=== PATIENT | male | born 1950 | race Caucasian/White ===

== ENCOUNTER 2019-11-29 08:22 | Outpatient (CLI) | payer MEDICARE, SELFPAY ==
--- NOTE | ~2019-11-29 | US_ITS ---
EXAMINATION: US aorta [facility] DATE: 11/29/2019 11:09 CDT INDICATION: High cholesterol. Hypertension. TECHNIQUE: Grayscale, color Doppler, and pulsed Doppler images of the aorta and common iliac arteries were obtained. COMPARISON: None. FINDINGS: There is atheromatous change of the aorta. The proximal aorta measures 1.7 cm greatest sagittal dimen carlton. The mid aorta measures 1.9 cm greatest sagittal dimension. The distal aorta measures 2.1 cm gre atest sagittal dimension. The right common internal iliac artery measures 1.5 cm. The left common davie ac artery measures 1.4 cm. IMPRESSION: 1. Atherosclerosis of the aorta without evidence for aneurysm. Reviewed, dictated and finalized at location A.
== END 2019-11-29 08:23 | disposition home or self-care (01) ==
LOC: ANHIMG 08:35
PROVIDERS: PCP Family Medicine; Visit Provider Family Medicine
DX: Z13.6 Encounter for screening for cardiovascular disorders (principal); I70.0 Atherosclerosis of aorta
CPT/HCPCS: 76706

== ENCOUNTER 2020-01-10 00:39 | Outpatient (CLI) | payer MEDICARE, SELFPAY ==
[2020-01-10 18:42] LABS: SARS-CoV-2 RNA PCR Negative
== END 2020-01-10 00:40 | disposition home or self-care (01) ==
LOC: ANHCOVIDDT 00:39
PROVIDERS: PCP Family Medicine; Visit Provider Internal Medicine Gastroenterology
DX: Z01.812 Encounter for preprocedural laboratory examination (principal); Z20.828 Contact with and (suspected) exposure to other viral communicable diseases
CPT/HCPCS: 87635; C9803; U0003

== ENCOUNTER 2020-01-12 01:27 | Day surgery (SDC) | payer MEDICARE, SELFPAY ==
[2020-01-05 10:08] VITALS: BMI 29.4
[2020-01-12] MEDS: LACTATED RINGERS 1,000 ML 150 ML IV CONT (06:56)
[2020-01-12 06:57] VITALS: BP 161/91; PULSE 116; RESP 20; TEMP 37.4; O2SAT 95
--- NOTE | 2020-01-12 07:27 | P.PNAN_ITS ---
Anes - Initial Pre Proc Eval Procedure: Operation Date: 01/12/20 08:00 Proposed Procedures p Screening Colonoscopy - Chaim Slaughter MD Date/Time: 01/12/20 07:27 Surgeon: Chaim Slaughter MD Pre Op Diagnosis: neoplasm screening Patient Data Age: 69 Gender: M Height: 5 ft 10 in Weight: 99.4 kg Last Vital Signs Temp 99.4 F 01/12/20 06:57 Pulse 116 H 01/12/20 06:57 Resp 20 01/12/20 06:57 BP 161/91 H 01/12/20 06:57 Pulse Ox 95 01/12/20 06:57 Allergies Allergy/AdvReac Type Severity Reaction Status Date / Time No Known Allergies Allergy Unknown Verified 01/12/20 06:47 Home Medications Medication Instructions Recorded Confirmed Type quinapril 20 1 tablet PO DAILY #90 tablet 11/20/19 01/12/20 Rx mg-hydrochlorothiazide 12.5 mg tablet multivitamin 1 tablet PO DAILY 12/25/19 01/12/20 History simvastatin 10 mg tablet 10 mg PO QPM #90 tablet 12/25/19 01/12/20 Rx Patient hx anesthesia problems: none Family hx anesthesia problems: none PMFSH Past Medical History Medical History (Updated 12/25/19 @ 16:44 by Isidra Gonsalez MD) Dyslipidemia Elevated lipids Essential (primary) hypertension Hx of pleural empyema 02/2015 Pneumonia (~02/09/15) Pre-diabetes Surgical History Surgical History History of thoracotomy right - 02/2015 [place] teeth extracted Social History Social History Smoking packs per day: 1 Smoking cigarettes per day: 20.0 Years smoked: 35 Smoking pack-years: 35.00 Smoking status: Current every day smoker Tobacco type: cigarettes Additional smoking assessment comments: consumes 1 1/2 - 2 packs daily Alcohol intake: current Substance use: never Substance use type: does not use Gender identity (if verbalized by the patient): Male Anes - Eval Final PreProcedure Day of Procedure 01/12/20 07:27 Patient weight: obese Heart: regular rate and rhythm Lungs: clear to auscultation Airway: Mallampati scale class II Neurological: alert and oriented Last oral intake: >/= 8 hours ASA classification: III Emergent: no Anesthetic plan: proceed Anesthesia type and monitoring: general GIVS and standard monitoring Informed Consent: The patient's anesthetic plan and its attendant risks and benefits were discussed with the patient/family/POA. Questions were solicited and answers provided to the satisfaction of the patient/family/POA.
--- NOTE | 2020-01-12 07:52 | PM.HPGS ---
History of Present Illness History of Present Illness Consent: Risks, benefits, and alternatives have been discussed and questions answered. Patient agrees to proceed with procedure. Chief complaint: neoplasm screening Narrative: Jose Miranda is a 69 year old male with positive cologuard, last colonoscopy 14 years ago. Review of Systems Constitutional: Constitutional: Denies headache(s) and Denies weakness Eyes: Eyes: Denies blurry vision ENT: Reports Normal hearing present, Denies headache(s) and Denies neck pain Cardiovascular: Cardiovascular: Denies chest pain and Denies dyspnea Respiratory: Respiratory: Denies dyspnea Gastrointestinal: Gastrointestinal: Reports no additional gastrointestinal complaints Genitourinary: Genitourinary: Denies dysuria Musculoskeletal: Musculoskeletal: Denies neck pain Integumentary/Breasts: Skin/Breast: Denies dry skin Neurologic: Reports Normal hearing present, Denies headache(s) and Denies weakness Psychiatric: Psychiatric: Denies anxiety Endocrine: Endocrine: Denies change in body appearance Hematologic/Lymphatic: Hematologic/Lymphatic: Denies easy bleeding Allergic/Immunologic: Allergic/Immunologic: Denies urticaria PMFSH Past Medical History Medical History (Updated 01/12/20 @ 07:53 by Chaim Slaughter MD) Dyslipidemia Elevated lipids Essential (primary) hypertension Hx of pleural empyema 02/2015 Pneumonia (~02/09/15) Positive colorectal cancer screening using Cologuard test Pre-diabetes Surgical History Surgical History History of thoracotomy right - 02/2015 [place] teeth extracted Social History Social History Smoking packs per day: 1 Smoking cigarettes per day: 20.0 Years smoked: 35 Smoking pack-years: 35.00 Smoking status: Current every day smoker Tobacco type: cigarettes Additional smoking assessment comments: consumes 1 1/2 - 2 packs daily Alcohol intake: current Substance use: never Substance use type: does not use Gender identity (if verbalized by the patient): Male Meds Home Medications and Allergies Home Medications Medication Instructions Recorded Confirmed Type quinapril 20 1 tablet PO DAILY #90 tablet 11/20/19 01/12/20 Rx mg-hydrochlorothiazide 12.5 mg tablet multivitamin 1 tablet PO DAILY 12/25/19 01/12/20 History simvastatin 10 mg tablet 10 mg PO QPM #90 tablet 12/25/19 01/12/20 Rx Allergies Allergy/AdvReac Type Severity Reaction Status Date / Time No Known Allergies Allergy Unknown Verified 01/12/20 06:47 Vital Signs Vital Signs - 24 hr 01/12/20 06:57 Temperature 99.4 F Pulse Rate 116 H Respiratory Rate 20 Blood Pressure 161/91 H Pulse Oximetry 95 Exam Const: General: comfortable and no acute distress HENMT: General nose exam: Normal nares present Eyes: General: appearance normal, both eyes and all related structures Neck: Neck: no JVD Resp: Auscultation: clear to auscultation bilaterally Cardio: Rate: regular rate Rhythm: regular rhythm GI: Inspection: non-distended GI Palp: Yes Soft to palpation Skin: General skin exam: normal color Neuro: General: gait normal Speech: normal speech Extrem: General: normal to inspection Psych: Mental Status: mental status grossly normal Assessment and Plan Assessment and plan (1) Positive colorectal cancer screening using Cologuard test: Code(s): R19.5 - Other fecal abnormalities Status: Acute Assessment and Plan: will proceed with colonoscopy (2) Essential (primary) hypertension: Code(s): I10 - Essential (primary) hypertension Status: Chronic
[2020-01-12 08:14] VITALS: BP 118/73; PULSE 98; RESP 24; O2SAT 97
[2020-01-12 08:24] VITALS: BP 117/71; PULSE 79; RESP 25; O2SAT 98
[2020-01-12 08:34] VITALS: BP 132/71; PULSE 81; RESP 23; O2SAT 98
== END 2020-01-12 08:54 | disposition home or self-care (01) ==
PROVIDERS: PCP Family Medicine; Visit Provider Internal Medicine Gastroenterology
PROC: 0DJD8ZZ Inspection of Lower Intestinal Tract, Via Natural or Artificial Opening Endoscopic (ICD-10-PCS; CPT 45378; principal; 2020-01-12 08:00)
DX: D12.2 Benign neoplasm of ascending colon (principal); D12.0 Benign neoplasm of cecum; D12.3 Benign neoplasm of transverse colon; K57.30 Diverticulosis of large intestine without perforation or abscess without bleeding; K64.8 Other hemorrhoids; I10 Essential (primary) hypertension; F17.210 Nicotine dependence, cigarettes, uncomplicated; Z79.899 Other long term (current) drug therapy
CPT/HCPCS: 45380; 88305; J2704; J7120

== ENCOUNTER 2022-08-20 13:48 | Outpatient (CLI) | payer OTHER, SELFPAY ==
[2022-08-20 19:03] LABS: Vitamin D 25 Hydroxy 45.9 ng/mL
[2022-08-20 19:30] LABS: Basophils Absolute Auto 0.1 K/mm3 (0.0-0.1); Basophils Percent Auto 1.1 % (0.2-1.2); Eosinophils Absolute Auto 0.3 K/mm3 (0-0.3); Eosinophils Percent Auto 2.5 % (0-4.4); Immature Granulocyte Absolute 0.06 K/mm3 (0.00-0.031); Immature Granulocyte Percent A 0.5 % (0-0.5); Lymphocytes Absolute Auto 1.96 K/mm3 (0.9-3.2); Lymphocytes Percent Auto 17.9 % (18.3-44.2); Mean Corpuscular HGB Conc 33.3 g/dl (32-36); Mean Corpuscular Hemoglobin 34.6 pg (26-34); Mean Corpuscular Volume 103.8 fl (80-100); Mean Platelet Volume 9.6 fl (7.4-10.4); Monocytes Percent Auto 9.1 % (2.6-8.5); Neutrophils Absolute Auto 7.6 K/mm3 (1.3-6.7); Neutrophils Percent Auto 68.9 % (45.5-73.1); Platelet Count Result 288 k/mm3 (150-375); Red Cell Distribution Width 12.8 % (11.5-14.5)
[2022-08-20 19:34] LABS: Alanine Aminotransferase 29 U/L (6-50); Albumin Level 4.6 g/dL (3.5-5.1); Alkaline Phosphatase 110 U/L (38-126); Anion Gap 12 mmol/L (8-16); Aspartate Amino Transferase 31 U/L (17-59); Bilirubin,Total 1.1 mg/dL (0.2-1.3); Blood Urea Nitrogen 12 mg/dL (9-20); Calcium 9.6 mg/dL (8.4-10.2); Carbon Dioxide 26 mmol/L (22-30); Chloride 97 mmol/L (98-107); Cholesterol 237 mg/dL (0-200); Estimated Glomerular Filt Rate > 60; Glucose 139 mg/dL (65-110); HDL Direct 46 mg/dL; Potassium 4.3 mmol/L (3.4-5.0); Sodium 135 mmol/L (137-145); Triglycerides 200 mg/dL (<150)
[2022-08-20 19:46] LABS: LDL Cholesterol Direct 161 mg/dL
[2022-08-20 19:55] LABS: Hemoglobin A1C 6.1 % (<5.7)
[2022-08-20 20:04] LABS: Prostate Specific Antigen 2.3 ng/mL (< OR = 4.0)
== END 2022-08-20 13:49 | disposition home or self-care (01) ==
LOC: ANHGOSHLAB 13:49
PROVIDERS: PCP Family Medicine; Visit Provider Nurse Practitioner Family
DX: R73.03 Prediabetes (principal); Z12.5 Encounter for screening for malignant neoplasm of prostate; E55.9 Vitamin D deficiency, unspecified; I10 Essential (primary) hypertension; E78.5 Hyperlipidemia, unspecified; F41.9 Anxiety disorder, unspecified
CPT/HCPCS: 36415; 80053; 80061; 82306; 83036; 84153; 84443; 85025; G0103

== ENCOUNTER 2022-08-26 15:01 | Outpatient (CLI) | payer OTHER, SELFPAY ==
--- NOTE | ~2022-08-26 | CT_ITS ---
EXAMINATION: CT lung screening DATE: 08/26/2022 15:27 INDICATION: Personal history of nicotine dependence, current smoker with 84 pack year history TECHNIQUE: Computed tomography (CT) of the chest was performed without intravenous contrast. The dose -length product (DLP) was 193.32 mGy-cm. Automated exposure control and iterative reconstruction tech Daojia were employed. COMPARISON: 02/08/2015 FINDINGS: There is a 2 mm nodule in the superior segment of the left lower lobe. There is mild atelec tasis in the right lower lobe. No pleural effusion or pneumothorax. 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 There is an old healed fracture of right fifth rib. No pathologicall y enlarged thoracic lymph nodes are identified. The heart size is normal. Calcified coronary artery a therosclerosis is noted. Punctate calcifications in an otherwise normal spleen likely represent heale d granulomatous disease. There is mild thoracic spondylosis. IMPRESSION: 1. Lung-RADS category 2: Benign appearance or behavior. Continue annual screening with noncontrast lo w-dose chest CT in 12 months. Reviewed, dictated and finalized at location F. IMPRESSION: 1. Lung-RADS category 2: Benign appearance or behavior. Continue annual screeni ng with noncontrast low-dose chest CT in 12 months.
== END 2022-08-26 15:02 | disposition home or self-care (01) ==
PROVIDERS: PCP Family Medicine; Visit Provider Nurse Practitioner Family
DX: Z12.2 Encounter for screening for malignant neoplasm of respiratory organs (principal); F17.210 Nicotine dependence, cigarettes, uncomplicated
CPT/HCPCS: 71271

== ENCOUNTER 2023-02-25 10:27 | Outpatient (CLI) | payer OTHER, SELFPAY ==
[2023-02-25 18:40] LABS: Basophils Absolute Auto 0.2 K/mm3 (0.0-0.1); Basophils Percent Auto 1.7 % (0.2-1.2); Eosinophils Absolute Auto 0.4 K/mm3 (0-0.3); Eosinophils Percent Auto 4.2 % (0-4.4); Hemoglobin 18.3 g/dL (14.0-18.0); Immature Granulocyte Absolute 0.04 K/mm3 (0.00-0.031); Immature Granulocyte Percent A 0.4 % (0-0.5); Lymphocytes Absolute Auto 2.29 K/mm3 (0.9-3.2); Lymphocytes Percent Auto 24.6 % (18.3-44.2); Mean Corpuscular HGB Conc 35.2 g/dl (32-36); Mean Corpuscular Hemoglobin 35.5 pg (26-34); Mean Platelet Volume 9.1 fl (7.4-10.4); Monocytes Absolute Auto 1.1 K/mm3 (0.1-0.6); Monocytes Percent Auto 11.5 % (2.6-8.5); Neutrophils Absolute Auto 5.4 K/mm3 (1.3-6.7); Neutrophils Percent Auto 57.6 % (45.5-73.1); Platelet Count Result 312 k/mm3 (150-375); Red Blood Count 5.15 M/mm3 (4.6-6.20); White Blood Count 9.3 K/mm3 (4.5-10.0)
[2023-02-25 19:25] LABS: Alanine Aminotransferase 30 U/L (6-50); Albumin Level 4.4 g/dL (3.5-5.1); Alkaline Phosphatase 106 U/L (38-126); Anion Gap 4 mmol/L (8-16); Aspartate Amino Transferase 38 U/L (17-59); Blood Urea Nitrogen 10 mg/dL (9-20); Calcium 9.7 mg/dL (8.4-10.2); Carbon Dioxide 29 mmol/L (22-30); Chloride 98 mmol/L (98-107); Cholesterol 208 mg/dL (0-200); Estimated Glomerular Filt Rate > 60; Glucose 153 mg/dL (65-110); HDL Direct 46 mg/dL; Potassium 4.3 mmol/L (3.4-5.0); Sodium 131 mmol/L (137-145); Triglycerides 195 mg/dL (<150)
[2023-02-25 19:36] LABS: LDL Cholesterol Direct 130 mg/dL
[2023-02-25 19:52] LABS: Hemoglobin A1C 5.8 % (<5.7)
== END 2023-02-25 10:28 | disposition home or self-care (01) ==
LOC: ANHGOSHLAB 10:28
PROVIDERS: PCP Family Medicine; Visit Provider Nurse Practitioner Family
DX: Z13.1 Encounter for screening for diabetes mellitus (principal); Z13.29 Encounter for screening for other suspected endocrine disorder; I10 Essential (primary) hypertension; R73.03 Prediabetes
CPT/HCPCS: 36415; 80053; 80061; 83036; 84443; 85025

== ENCOUNTER 2023-03-15 16:11 | Outpatient (CLI) | payer OTHER, SELFPAY ==
--- NOTE | ~2023-03-15 | US_ITS ---
EXAMINATION: US scrotum doppler DATE: 03/15/2023 18:52 INDICATION: Left testicular swelling. TECHNIQUE: Grayscale and Doppler ultrasound images of the testes were obtained. COMPARISON: None. FINDINGS: The right testis measures 4.7 x 2.1 x 3.4 cm. The left testis measures 3.9 x 2.9 x 3.5 cm. There are cysts in both testes measuring up to 5 mm on the left. There is normal vascular flow to bot h testes. The right epididymis demonstrates a 1.2 cm cyst.. The left epididymis demonstrates a 1.7 cm cyst.. There is no hydrocele. There is a left inguinal hernia containing fat. IMPRESSION: 1. Left inguinal hernia containing fat. Reviewed, dictated and finalized at location E.
== END 2023-03-15 16:12 | disposition home or self-care (01) ==
PROVIDERS: PCP Family Medicine; Visit Provider Nurse Practitioner Family
DX: K40.90 Unilateral inguinal hernia, without obstruction or gangrene, not specified as recurrent (principal); N50.89 Other specified disorders of the male genital organs
CPT/HCPCS: 76870; 93976

== ENCOUNTER 2023-04-09 10:18 | Outpatient (CLI) | payer OTHER, SELFPAY ==
--- NOTE | 2023-04-09 10:31 | ECG_ITS ---
Measurements Intervals [place] Rate: 107 P: 21 CA: 155 QRS: -14 QRSD: 91 T: 31 QT: 340 QTc: 454 Interpretive Statements SINUS TACHYCARDIA DELAYED PRECORDIAL R/S TRANSITION BASELINE ARTIFACT- I, III, AVR, AVL, AVF ABNORMAL ECG NO PREVIOUS ECG AVAILABLE FOR COMPARISON Electronically Signed On 04-09-2023 10:52:34 [employer] REPRESENTATIVE by Stef Ventura D.O.
== END 2023-04-09 10:19 | disposition home or self-care (01) ==
LOC: ANHSURGERY 10:23
PROVIDERS: PCP Nurse Practitioner Family; Visit Provider Surgery
DX: Z01.818 Encounter for other preprocedural examination (principal); K40.90 Unilateral inguinal hernia, without obstruction or gangrene, not specified as recurrent; I10 Essential (primary) hypertension; R94.31 Abnormal electrocardiogram [ECG] [EKG]; R93.1 Abnormal findings on diagnostic imaging of heart and coronary circulation
CPT/HCPCS: 36415; 86850; 86900; 86901; 93005

== ENCOUNTER 2023-04-12 13:27 | Inpatient (IN) | payer OTHER, SELFPAY ==
--- NOTE | 2023-04-08 13:08 | PC.NURSE ---
Report to the Outpatient Waiting Room, entrance under the green pavilion located off [facility], at time _0930 on date __04/12/23 . Planned Procedure Time: _1130 . Time changes happen often and if your time is changed the preop area will call you the afternoon before. - You and your visitor will be asked to self-screen and do not enter if you have any COVID symptoms. - A mask is optional within the hospital at this time. Patients may have clear liquids (water, carbonated beverages, clear teas, apple juice) until 3 hours prior to surgery with a maximum of 20 ounces. - No food from midnight until time of surgery - Infants may have breast milk until 4 hours before surgery, formula 6 hours prior to surgery. - Children will be allowed to drink immediately following surgery. If applicable, please bring a bottle or sippy cup to assist with drinking. Juice, water, soda, and popsicles are readily available. For infants on formula, please bring formula the day of surgery. Pacifiers are allowed. Take the following medications with a SIP of water the morning of surgery: ____INHALER IF NEEDED DO NOT STOP ANY OF YOUR OTHER PRESCRIPTION MEDICATIONS PRIOR TO SURGERY ?EXCEPT THE FOLLOWING Medications to discontinue per physician ___ALL VITAMINS AND SUPPLEMENTS 3 DAYS PRE OP . LAST DOSE 04/08/23 Please no make-up, nail lithuanian, hairspray, perfume, deodorant, or body powder the day of surgery. No jewelry (including any body piercings) or valuables the day of surgery, leave them at home. Please take a shower or bath the night before, or the morning of, surgery with an antibacterial soap. Wear comfortable, loose fitting clothing. Children are encouraged to wear pajamas. - Jewelry must be removed prior to entering the operating room. Rings and piercings that are not removed may be cut off. - The hospital will not accept responsibility for valuables. - Please leave all valuables, including medications, at home the day of surgery. If you are going home after surgery, a licensed gas truck driver must drive you home. - NO public transportation without another adult if you receive anesthesia. - We recommend that an adult stay with you for 24 hours following discharge. - We also recommend that you do not drive, make important decision, drink alcoholic beverages, or take any drugs that were not prescribed by your health care provider for at least 24 hours after your discharge time. For Pediatric surgeries, we recommend two adults accompany the child home. Follow any additional instructions given to you from your surgeon. If you or anyone in your household have experienced Covid symptoms in the past week, please notify your surgeon or the nurse liaison at the phone number below for possible testing. Telephone instructions given to __PATIENT and asked if any additional questions and then verbalized understanding. Patient advised to call surgeon office or pre surgery nurse liaison [phone] if any additional questions.
[2023-04-08 13:15] VITALS: BMI 31.0
[2023-04-12] VITALS (9 sets, daily range): BP systolic 103–162; BP diastolic 51–84; PULSE 95–118; RESP 18–22; TEMP 36.3–37.4; O2SAT 91–99
[2023-04-12] MEDS: LACTATED RINGERS 1,000 ML 30 ML IV CONT ×2 (09:59→13:32)
[2023-04-12] MEDS: ACETAMINOPHEN 500 MG TABLET 1000 MG PO (09:59)
[2023-04-12] MEDS: KETOROLAC 15 MG/ML VIAL (*BKC) IV PUSH (10:00)
--- NOTE | 2023-04-12 10:52 | WPDHPUPDATE1 ---
History and Physical Update Update Date/Time: 04/12/23 10:52 History and Physical has been reviewed, including an updated exam of the patient. There are NO changes in the patient's condition. Risks, benefits, and alternatives have been discussed and questions answered. Patient agrees to proceed with procedure.
--- NOTE | 2023-04-12 11:03 | WPDANESEPPF ---
Anes - Initial Pre Proc Eval Procedure: Operation Date: 04/12/23 11:30 Proposed Procedures p Robotic Assisted Left Inguinal Hernia Repair with Mesh - Yaz Crook MD Date/Time: 04/12/23 11:03 Surgeon: Yaz Crook MD Pre Op Diagnosis: Left Inguinal Hernia Patient Data Age: 72 Gender: M Height: 1.75 m Weight: 93.7 kg Last Vital Signs Temp 98.7 F 04/12/23 09:30 Pulse 102 H 04/12/23 09:30 Resp 18 04/12/23 09:30 BP 162/84 H 04/12/23 09:30 Pulse Ox 98 04/12/23 09:30 O2 Del Method Room Air 04/12/23 09:30 Allergies Allergy/AdvReac Type Severity Reaction Status Date / Time No Known Allergies Allergy Unknown Verified 04/12/23 09:39 Home Medications Medication Instructions Recorded Confirmed Type multivitamin 1 tablet PO DAILY 12/25/19 04/12/23 History albuterol sulfate 90 mcg/actuation 1 puff inhalation Q4H PRN 02/25/23 04/12/23 Rx aerosol inhaler shortness of breath or wheezing #6.7 grams lisinopril 10 mg tablet 10 mg PO DAILY #90 tabs 02/25/23 04/12/23 Rx omega 9-bdv-qvv-fish oil 1,000 mg 1 cap PO DAILY 03/18/23 04/12/23 History (120 mg-180 mg) capsule (Fish Oil) Patient hx anesthesia problems: none Family hx anesthesia problems: none Results Review: All pre-operative results and documents have been reviewed as part of the pre-operative evaluation. [facility], [facility] Past Medical History Medical History Anxiety attack Dyslipidemia Elevated lipids Essential (primary) hypertension Gout Hx of pleural empyema 02/2015 Incidental lung nodule, less than or equal to 3mm Pneumonia (~02/09/15) Positive colorectal cancer screening using Cologuard test Pre-diabetes Scrotum swelling Vitamin D deficiency Surgical History Surgical History History of thoracotomy right - 02/2015 [place] teeth extracted Family History Family History Other Heart disease Social History Social History Social History: Jose is , he retired from [employer]. He started smoking at age 20, quit for 8 yrs then restarted. Smoking packs per day: 2 Smoking cigarettes per day: 40.0 Years smoked: 30 Smoking pack-years: 60.00 Smoking status: Current every day smoker Tobacco type: cigarettes Additional smoking assessment comments: consumes 2 packs daily Alcohol intake: current Drinks per week: 28 Alcohol use details: consumes a 6 pack of beer daily Substance use: never Substance use type: does not use Lack of Transportation: No Lack of Food: Never True Current Housing: I Have Housing Concerned About Future Housing: No Difficulty Paying Gas/Electric Bills: No Difficulty Paying for Meds: No Currently Unemployed: No Education: High School Diploma/GED Difficulty w/ Childcare or Family Care: No Living arrangements: with family Gender identity (if verbalized by the patient): Male Spiritual care concerns: No Anes - Eval Final PreProcedure Day of Procedure 04/12/23 11:03 Patient weight: obese Heart: regular rate and rhythm Lungs: clear to auscultation Airway: Mallampati scale class III Neurological: alert and oriented Last oral intake: >/= 8 hours ASA classification: III Emergent: no Anesthetic plan: proceed Anesthesia type and monitoring: general ETT and standard monitoring Results Review: All pre-operative results and documents have been reviewed as part of the pre-operative evaluation. Informed Consent: The patient's anesthetic plan and its attendant risks and benefits were discussed with the patient/family/POA. Questions were solicited and answers provided to the satisfaction of the patient/family/POA.
[2023-04-12] MEDS: ceFAZolin 2 GM/D5W 50 ML 2 GM/50 ML BAG IVPB (11:14)
[2023-04-12] MEDS: BUPIVACAINE/EPINEPHRINE 0.5% 50 ML VIAL 30 ML INFILTRATE (12:03)
[2023-04-12] MEDS: PIPERACILLN/TAZ 3.375GM/NS50ML 3.375 GM/50 ML BAG IVPB ×2 (12:36→17:09)
--- NOTE | 2023-04-12 13:33 | W.PM.PROC2 ---
Procedure Note - Detailed Date of Procedure 04/12/23 Pre-op Diagnosis Incarcerated Left Inguinal Hernia Post-op Diagnosis Other ( strangulated left inguinal hernia with sigmoid colon) Procedure Performed robotic assisted exploratory laparoscopy, reduction of strangulated left inguinal hernia with sigmoid colon, conversion to open laparotomy, partial sigmoid colon resection with primary anastomosis, abdominal washout Surgeon Yaz Crook MD Anesthesia General Indications 72-year-old male presenting to the office with a incarcerated left inguinal hernia. Patient with noted symptoms of bowel obstruction. Findings Incarcerated, ischemic sigmoid colon within left inguinal hernia, small perforation noted during dissection Description of Procedure The patient was taken to the operating and placed in the supine position. After adequate induction of general anesthesia, the patient was prepped and draped in the normal sterile fashion. A time-out was then done to verify the patient's identity, as well as the procedure being performed. I began by making the 8 mm incision supraumbilical region, Veress needle was placed in the peritoneal cavity. CO2 gas was then insufflated through the Veress needle and after adequate pneumoperitoneum was achieved, the Veress needle was removed. A 8 mm trocar was placed under direct visualization into the peritoneal cavity. Under direct visualization, I placed a further 8 mm port in the left mid abdomen, as well as an additional 8 mm port in the right mid abdomen. The DA Sridhar robot was then docked to these port sites. I then scrubbed out and went to the robotic console. Upon examining the pelvis, there was noted to be a large, incarcerated left inguinal hernia. The hernia was noted to contain is significant portion of sigmoid colon. Using gentle manual pressure from the outside and the robotic instruments I began to carefully reduce this hernia. Despite careful and gentle dissection, I was unable to completely reduce this hernia. I then made a preperitoneal flap 6 cm superior to the defect. This flap was carried down to the area of the hernia. I dissected the medial compartment to the pubic tubercle. The lateral dissection was done to the transversalis. I then continued to carefully dissect this hernia from above. It was noted at this point that there was some ischemic changes in the colon and a small perforation was noted. At this point, decision was made to convert to open laparotomy. The robot was undocked and all ports removed. Made a lower midline incision incorporating the supraumbilical 8 mm port site. I was able to gain access to the left groin and using manual reduction I was finally able to reduce the hernia. There was noted to be a significant portion of sigmoid colon within the hernia. I was able to find the small area of perforation and ischemia. This was located in the mid to proximal sigmoid colon. Was able to free up the sigmoid colon by taking down the white line of Toldt laterally. I then was able to isolate this area of perforation and ischemia. I went ahead and resected this small area using a MONTRELL stapler. Then completed a [id number] functional end-to-end anastomosis the 55 MONTRELL stapler and the TL 60 stapler. The anastomosis was noted to be widely patent and tension-free. No other areas of pathology were noted. I then copiously irrigated the abdominal cavity and pelvis. Given the contaminated field, the decision was made not to proceed with mesh repair. I closed the preperitoneal flap with a Vicryl suture. The fascia of the midline incision was closed with a 0 looped PDS. Skin beth were used to close all incision sites. The patient tolerated the procedure well and was extubated postoperatively. He will be sent to the recovery room in stable condition.
[2023-04-12] MEDS: LACTATED RINGERS 1,000 ML 100 ML IV CONT (15:38)
--- NOTE | 2023-04-12 15:45 | ADMGEN ---
This patient, Bijan Miranda, was admitted to 3 [facility] Surg Room 301-01. Patient/family oriented to hospital policies and general routines including ID bracelet, bed and alarms, visiting hours, pain management, procedures, bathroom and other care routines, personal items, smoking policy, room service/diet, and visiting hours. Information on how to activate the Rapid Response Team has been discussed. Patient/Family are encouraged to report perceived risks to care and to ask questions if they do not understand what they are told or what they should do.
[2023-04-12 16:10] LABS: Estimated CRCL calculation 96 ml/min; Estimated Glomerular Filt Rate > 60
[2023-04-12] MEDS: HYDROcodone/acetaminophen (*CRX) 5-325 MG TABLET 1 TAB PO (17:09)
[2023-04-12] MEDS: MORPHINE SULFATE (*CRX) 4 MG/ML INJ IV PUSH (20:44)
[2023-04-12] MEDS: ONDANSETRON INJ 4 MG/2 ML VIAL IV PUSH (20:44)
[2023-04-12] MEDS: FAMOTIDINE 20 MG/2 ML VIAL IV PUSH (20:55)
[2023-04-13] VITALS (10 sets, daily range): BP systolic 108–147; BP diastolic 72–87; PULSE 112–128; RESP 16–18; TEMP 36.4–37.7; O2SAT 94–97
[2023-04-13] MEDS: MORPHINE SULFATE (*CRX) 4 MG/ML INJ IV PUSH (00:31)
[2023-04-13] MEDS: PIPERACILLN/TAZ 3.375GM/NS50ML 3.375 GM/50 ML BAG IVPB ×5 (00:32→23:42)
[2023-04-13] MEDS: LACTATED RINGERS 1,000 ML 100 ML IV CONT (05:23)
[2023-04-13 06:35] LABS: Hematocrit 46.5 % (42.0-52.0); Hemoglobin 15.6 g/dL (14.0-18.0); Mean Corpuscular HGB Conc 33.5 g/dl (32-36); Mean Corpuscular Hemoglobin 34.7 pg (26-34); Mean Corpuscular Volume 103.6 fl (80-100); Mean Platelet Volume 9.1 fl (7.4-10.4); Platelet Count Result 221 k/mm3 (150-375); Red Blood Count 4.49 M/mm3 (4.6-6.20); Red Cell Distribution Width 13.1 % (11.5-14.5); White Blood Count 15.9 K/mm3 (4.5-10.0)
[2023-04-13 06:47] LABS: Anion Gap 11 mmol/L (8-16); Blood Urea Nitrogen 12 mg/dL (9-20); Calcium 8.5 mg/dL (8.4-10.2); Carbon Dioxide 21 mmol/L (22-30); Chloride 101 mmol/L (98-107); Estimated CRCL calculation 113 ml/min; Estimated Glomerular Filt Rate > 60; Glucose 141 mg/dL (65-110); Potassium 4.3 mmol/L (3.4-5.0); Sodium 133 mmol/L (137-145)
[2023-04-13 08:26] LABS: Band Neutrophils Percent 45 % (0-6); Basophils Absolute Manual 0.15 K/mm3 (0.0-0.1); Basophils Percent Manual 1 % (0-1); Burr Cells 1+ (NORMAL); Lymphocytes Absolute Manual 1.43 K/mm3 (1.1-4.5); Metamyelocytes Percent 2 %; Monocytes Absolute Manual 0.63 K/mm3 (0.1-0.90); Monocytes Percent Manual 4 % (3-9); Neutrophils Absolute Manual 13.35 K/mm3 (1.3-6.7); Neutrophils Percent Manual 39 % (46-73); Platelet Estimate Adequate (Adequate); Schistocytes None Seen (NORMAL); Total Cells Counted 100
[2023-04-13] MEDS: ENOXAPARIN 40 MG/0.4 ML SYRINGE SUB-Q (08:34)
[2023-04-13] MEDS: FAMOTIDINE 20 MG/2 ML VIAL IV PUSH ×2 (08:34→20:34)
--- NOTE | 2023-04-13 10:26 | PM.PNGS ---
Progress Note: A&P Assessment and Plan (1) Left inguinal hernia: Code(s): K40.90 - Unilateral inguinal hernia, without obstruction or gangrene, not specified as recurrent Status: Acute Assessment and Plan: S/p robotic-assisted ex laparoscopy, reduction strangulated L inguinal hernia with sigmoid colon and conversion to open laparotomy with partial sigmoid resection and abdominal washout due to an ischemic area of the sigmoid with small perforation. Continue IV Zosyn Patient tachycardic with low grade fever. Not having any abdominal pain and only expected incisional tenderness on exam. Will put the patient on telemetry to monitor and get an EKG. Encouraged IS use. Will get patient up to chair and start increasing activity as tolerated. Repeat labs tomorrow and continue to monitor. Will add melatonin for sleep tonight Continue clear liquids. Drinking plenty of fluids and labs this morning are stable, will d/c IV fluids for now. (2) Essential (primary) hypertension: Code(s): I10 - Essential (primary) hypertension Status: Chronic Assessment and Plan: BP stable. Will restart lisinopril. Monitor BP. Plan I have discussed the patient's case and plan of care with Dr. Crook. Subjective Subjective Date/Time Seen: 04/13/23 10:26 Post Op day: 1 (robotic assisted exploratory laparoscopy, reduction of strangulated left inguinal hernia with sigmoid colon, conversion to open laparotomy, partial sigmoid colon resection with primary anastomosis, abdominal washout) Patient reports: tolerating liquids well, voiding w/o difficulty, flatus and no bowel movement Interval history: Patient seen this morning. He has a sitter at the bedside. Per nursing, he was agitated last night and continuously trying to get up out of bed without help. He is alert and oriented x 3 this morning. He understands that he has to ask for help for safety reasons to get out of bed. He is drinking plenty of fluids and his main complaint is being hooked up to the continuous IV fluids. He denies abdominal pain at this time, but reports some incisional soreness when getting up out of bed. He reportedly did not sleep well and feels very tired this morning. No other complaints at this time. In review of his chart, he is slightly tachycardic this morning and temperature is 99.8F this am. Denies any chest pain or shortness of breath. Review of Systems Review of Systems: All systems reviewed & are unremarkable except as noted in HPI and below Exam Const: General: comfortable and no acute distress Orientation/consciousness: patient oriented x3 Resp: Effort & Inspection: normal respiratory effort Auscultation: clear to auscultation bilaterally Cardio: Rate: tachycardic Rhythm: regular rhythm GI: Inspection: incision (dressing dry with scant bloody shadow drainage on midline dressing) and other (protuberant abdomen with mild distension) GI Palp: Yes Soft to palpation, Yes Tenderness to palpation present (GI) (expected incisional tenderness) and No Guarding due to palpation present (GI) Auscultation: normal bowel sounds Neuro: General: moves all extremities and no focal motor deficits Extrem: General: no calf tenderness and no edema Psych: Mental Status: mental status grossly normal Insight: Good insight present (Psych) Objective Data Vital Signs Vital Signs: Vital Signs - 24 hr 04/12/23 13:32 04/12/23 13:45 04/12/23 14:00 Temperature 99.0 F Pulse Rate 97 95 97 Respiratory Rate 22 H 20 18 Blood Pressure 106/59 L 103/51 L 112/67 Pulse Oximetry 99 99 97 Oxygen Delivery Simple Face Mask Simple Face Mask Simple Face Mask Oxygen Flow Rate 8 8 8 04/12/23 14:15 04/12/23 14:23 04/12/23 15:12 Temperature 97.3 F L Pulse Rate 99 100 97 Respiratory Rate 22 H 18 18 Blood Pressure 122/68 118/67 120/73 Pulse Oximetry 91 92 98 Oxygen Delivery Room Air Room Air Oxygen Flow Rate 04/12/23 18:44 04/12/23 22:00 04/13/23 06:15 Te
--- NOTE | 2023-04-13 10:30 | ECG_ITS ---
Measurements Intervals [place] Rate: 120 P: 16 SD: 158 QRS: -10 QRSD: 81 T: 31 QT: 298 QTc: 421 Interpretive Statements SINUS TACHYCARDIA BORDERLINE R WAVE PROGRESSION, ANTERIOR LEADS BASELINE ARTIFACT- III, AVL, AVF, V1 ABNORMAL ECG COMPARED TO ECG 04/09/2023 10:37:06 HEART RATE HAS INCREASED Electronically Signed On 04-13-2023 11:27:13 CHIEF OF STAFF DOCTOR by Stef Ventura D.O.
[2023-04-13] MEDS: ACETAMINOPHEN 500 MG TABLET 1000 MG PO (11:02)
[2023-04-13] MEDS: lisinopriL 10 MG TABLET PO (11:02)
--- NOTE | 2023-04-13 15:43 | PCCCNOTE ---
On 04/13/23, the student, [Leighann Asher], provided care and completed [facility] documentation on this patient. I have reviewed the student's documentation and agree with the findings.
[2023-04-13] MEDS: HYDROcodone/acetaminophen (*CRX) 5-325 MG TABLET 1 TAB PO ×2 (17:34→23:42)
[2023-04-13] MEDS: MELATONIN 5 MG TABLET PO (20:34)
[2023-04-14] VITALS (9 sets, daily range): BP systolic 100–122; BP diastolic 59–73; PULSE 87–132; RESP 16–18; TEMP 36.4–37.6; O2SAT 93–96
[2023-04-14] MEDS: HYDROcodone/acetaminophen (*CRX) 5-325 MG TABLET 1 TAB PO ×2 (05:57→15:49)
[2023-04-14] MEDS: PIPERACILLN/TAZ 3.375GM/NS50ML 3.375 GM/50 ML BAG IVPB ×3 (05:58→16:58)
[2023-04-14 06:57] LABS: Hematocrit 43.8 % (42.0-52.0); Hemoglobin 14.6 g/dL (14.0-18.0); Mean Corpuscular HGB Conc 33.3 g/dl (32-36); Mean Corpuscular Hemoglobin 34.7 pg (26-34); Mean Platelet Volume 9.7 fl (7.4-10.4); Platelet Count Result 203 k/mm3 (150-375); Red Blood Count 4.21 M/mm3 (4.6-6.20); White Blood Count 14.2 K/mm3 (4.5-10.0)
[2023-04-14 07:04] LABS: Anion Gap 8 mmol/L (8-16); Blood Urea Nitrogen 9 mg/dL (9-20); Calcium 8.6 mg/dL (8.4-10.2); Carbon Dioxide 22 mmol/L (22-30); Chloride 101 mmol/L (98-107); Estimated CRCL calculation 97 ml/min; Estimated Glomerular Filt Rate > 60; Glucose 123 mg/dL (65-110); Potassium 3.9 mmol/L (3.4-5.0); Sodium 131 mmol/L (137-145)
[2023-04-14] MEDS: ENOXAPARIN 40 MG/0.4 ML SYRINGE SUB-Q (08:50)
[2023-04-14] MEDS: FAMOTIDINE 20 MG/2 ML VIAL IV PUSH ×2 (08:50→20:21)
[2023-04-14] MEDS: lisinopriL 10 MG TABLET PO (08:50)
--- NOTE | 2023-04-14 12:06 | PM.PNGS ---
Progress Note: A&P Assessment and Plan (1) Left inguinal hernia: Code(s): K40.90 - Unilateral inguinal hernia, without obstruction or gangrene, not specified as recurrent Status: Acute Assessment and Plan: S/p robotic-assisted ex laparoscopy, reduction strangulated L inguinal hernia with sigmoid colon and conversion to open laparotomy with partial sigmoid resection and abdominal washout due to an ischemic area of the sigmoid with small perforation. Continue IV Zosyn Still tachycardic. Afebrile and WBC down to 14 today. No complaints of abdominal pain and only expected incisional tenderness on exam with no peritoneal signs. Continue to monitor and repeat labs tomorrow. Awaiting return of bowel function. Will advance to full liquids Will order scrotal support Encouraged increasing activity and walking the halls today. No more confusion or agitation. (2) Essential (primary) hypertension: Code(s): I10 - Essential (primary) hypertension Status: Chronic Assessment and Plan: BP stable. Continue home meds. Plan I have discussed the patient's case and plan of care with Dr. Crook. Subjective Subjective Date/Time Seen: 04/14/23 12:06 Patient reports: tolerating liquids well, voiding w/o difficulty, no flatus, no bowel movement and afebrile Interval history: Patient doing well today. Main complaint this morning is scrotal swelling. He is voiding without any difficulties. He only has some incisional soreness with getting out of bed and moving. No abdominal pain at rest. No nausea or vomiting. Still no flatus or BM. WBC count down to 14 K. Slept much better with melatonin. Review of Systems Review of Systems: All systems reviewed & are unremarkable except as noted in HPI and below Cardiovascular: Cardiovascular: Reports no additional cardiovascular complaints and Denies chest pain Respiratory: Respiratory: Reports no additional respiratory complaints and Denies dyspnea Exam Const: General: comfortable and no acute distress Orientation/consciousness: patient oriented x3 Resp: Effort & Inspection: normal respiratory effort Auscultation: clear to auscultation bilaterally Cardio: Rate: tachycardic Rhythm: regular rhythm GI: Inspection: other (protuberant abdomen with mild distension) GI Palp: Yes Soft to palpation, Yes Tenderness to palpation present (GI) (expected incisional tenderness, no other tenderness throughout) and No Guarding due to palpation present (GI) Auscultation: normal bowel sounds Other: incisions dry and beth intact, skin appears dark red/purple just above umbilicus at midline incision with no drainage : Penis: Yes other (hidden) Scrotum: no inguinal hernias and scrotal swelling diffuse Neuro: General: moves all extremities Extrem: General: no calf tenderness and no edema Psych: Mental Status: mental status grossly normal Objective Data Vital Signs Vital Signs: Vital Signs - 24 hr 04/13/23 15:12 04/13/23 16:00 04/13/23 20:10 Temperature 99.4 F 98.8 F Pulse Rate 118 H 121 H 119 H Respiratory Rate 18 16 Blood Pressure 108/72 147/87 H Pulse Oximetry 97 94 04/13/23 20:00 04/14/23 00:00 04/14/23 04:00 Temperature Pulse Rate 120 H 129 H 117 H Respiratory Rate Blood Pressure Pulse Oximetry 04/14/23 05:11 04/14/23 08:00 Temperature 98.1 F Pulse Rate 124 H 117 H Respiratory Rate 16 Blood Pressure 122/73 Pulse Oximetry 93 Intake/Output Intake/Output: Intake & Output 04/11/23 04/12/23 04/13/23 04/14/23 23:59 23:59 23:59 23:59 Intake Total 1160 6720 710 Output Total 1950 300 Balance 1160 6670 410 Meds/Results Medications: Active Medications Generic Name Dose Route Start Last Admin Trade Name Freq PRN Reason Stop Dose Admin Acetaminophen 1,000 mg 04/13/23 10:36 04/13/23 11:02 Acetaminophen 500 Mg Tablet PO 1,000 mg Q6H PRN Administration Mild Pain (1-3) or Fever Hydrocod
--- NOTE | 2023-04-14 14:54 | PCCCNOTE ---
On 04/14/23, the student, [Leighann Asher], provided care and completed [facility] documentation on this patient. I have reviewed the student's documentation and agree with the findings.
[2023-04-14] MEDS: MELATONIN 5 MG TABLET PO (20:21)
[2023-04-14] MEDS: HYDROcodone/acetaminophen (*CRX) 10-325 MG TABLET 1 TAB PO (20:25)
[2023-04-15] VITALS (11 sets, daily range): BP systolic 114–155; BP diastolic 62–90; PULSE 78–123; RESP 16–20; TEMP 36.1–37.9; O2SAT 96–97
[2023-04-15] MEDS: PIPERACILLN/TAZ 3.375GM/NS50ML 3.375 GM/50 ML BAG IVPB ×4 (01:00→17:01)
[2023-04-15 07:00] LABS: Hemoglobin 13.9 g/dL (14.0-18.0); Mean Corpuscular HGB Conc 33.1 g/dl (32-36); Mean Corpuscular Hemoglobin 34.6 pg (26-34); Mean Corpuscular Volume 104.5 fl (80-100); Mean Platelet Volume 9.7 fl (7.4-10.4); Platelet Count Result 212 k/mm3 (150-375); Red Blood Count 4.02 M/mm3 (4.6-6.20); White Blood Count 13.3 K/mm3 (4.5-10.0)
[2023-04-15 07:11] LABS: Anion Gap 9 mmol/L (8-16); Blood Urea Nitrogen 9 mg/dL (9-20); Calcium 8.6 mg/dL (8.4-10.2); Carbon Dioxide 25 mmol/L (22-30); Chloride 100 mmol/L (98-107); Estimated CRCL calculation 114 ml/min; Estimated Glomerular Filt Rate > 60; Glucose 114 mg/dL (65-110); Potassium 3.5 mmol/L (3.4-5.0); Sodium 134 mmol/L (137-145)
[2023-04-15] MEDS: ENOXAPARIN 40 MG/0.4 ML SYRINGE SUB-Q (09:18)
[2023-04-15] MEDS: FAMOTIDINE 20 MG/2 ML VIAL IV PUSH ×2 (09:20→21:15)
[2023-04-15] MEDS: lisinopriL 10 MG TABLET PO (09:20)
--- NOTE | 2023-04-15 11:18 | PM.PNGS ---
Progress Note: A&P Assessment and Plan (1) Left inguinal hernia: Code(s): K40.90 - Unilateral inguinal hernia, without obstruction or gangrene, not specified as recurrent Status: Acute Assessment and Plan: S/p robotic-assisted ex laparoscopy, reduction strangulated L inguinal hernia with sigmoid colon and conversion to open laparotomy with partial sigmoid resection and abdominal washout due to an ischemic area of the sigmoid with small perforation. Awaiting return of bowel function Continue IV Zosyn, WBC trending down Will advance to low residue diet Refusing scrotal support, recommended ice and elevation Encouraged IS use and increasing activity and walking the halls. (2) Essential (primary) hypertension: Code(s): I10 - Essential (primary) hypertension Status: Chronic Assessment and Plan: BP stable. Continue home meds. Plan I have discussed the patient's case and plan of care with Dr. Crook. Subjective Subjective Date/Time Seen: 04/15/23 11:18 Post Op day: 3 (robotic assisted exploratory laparoscopy, reduction of strangulated left inguinal hernia with sigmoid colon, conversion to open laparotomy, partial sigmoid colon resection with primary anastomosis, abdominal washout) Patient reports: no new complaints, feels better, tolerating liquids well, voiding w/o difficulty, flatus, no bowel movement and afebrile Interval history: No acute issues overnight. Still complaining of scrotal swelling and he is refusing the scrotal support because he doesn't like the compression. No abdominal pain, nausea, vomiting, or bloating. He is passing flatus, but no BM yet since surgery. No other complaints at this time. Review of Systems Review of Systems: All systems reviewed & are unremarkable except as noted in HPI and below Exam Const: General: comfortable and no acute distress Orientation/consciousness: patient oriented x3 Resp: Effort & Inspection: normal respiratory effort Auscultation: clear to auscultation bilaterally Cardio: Rate: regular rate Rhythm: regular rhythm GI: Inspection: non-distended GI Palp: Yes Soft to palpation, Yes Tenderness to palpation present (GI) (expected incisional tenderness) and No Guarding due to palpation present (GI) Auscultation: normal bowel sounds Other: incisions dry and beth intact, skin appears dark red/purple just above umbilicus at midline incision with no drainage : Penis: Yes other (hidden) Scrotum: no inguinal hernias and scrotal swelling Neuro: General: moves all extremities Extrem: General: no calf tenderness and no edema Psych: Mental Status: mental status grossly normal Objective Data Vital Signs Vital Signs: Vital Signs - 24 hr 04/14/23 12:00 04/14/23 14:00 04/14/23 16:00 Temperature 99.6 F Pulse Rate 132 H 121 H 126 H Respiratory Rate 17 Blood Pressure 109/59 L Pulse Oximetry 96 Oxygen Delivery 04/14/23 20:00 04/14/23 21:20 04/14/23 20:00 Temperature 97.6 F Pulse Rate 119 H 111 H 87 Respiratory Rate 18 18 Blood Pressure 100/65 Pulse Oximetry 95 94 Oxygen Delivery Room Air 04/15/23 00:00 04/15/23 04:00 04/15/23 06:00 Temperature 96.9 F L Pulse Rate 78 84 107 H Respiratory Rate 16 Blood Pressure 155/90 H Pulse Oximetry 96 Oxygen Delivery 04/15/23 08:00 Temperature Pulse Rate 106 H Respiratory Rate Blood Pressure Pulse Oximetry Oxygen Delivery Intake/Output Intake/Output: Intake & Output 04/12/23 04/13/23 04/14/23 04/15/23 23:59 23:59 23:59 23:59 Intake Total 1160 6720 2807 515 Output Total 1950 300 300 Balance 1160 9069 1318 215 Meds/Results Medications: Active Medications Generic Name Dose Route Start Last Admin Trade Name Freq PRN Reason Stop Dose Admin Acetaminophen 1,000 mg 04/13/23 10:36 04/13/23 11:02 Acetaminophen 500 Mg Tablet PO 1,000 mg Q6H PRN Administration Mild Pain (1-3) or Fever Hydrocodone Bitart/A
[2023-04-15] MEDS: ACETAMINOPHEN 500 MG TABLET 1000 MG PO (13:55)
[2023-04-15] MEDS: NICOTINE (*PBKC) 21 MG PATCH 1 PATCH TRANSDERM (16:59)
[2023-04-15] MEDS: HYDROcodone/acetaminophen (*CRX) 10-325 MG TABLET 1 TAB PO (21:15)
[2023-04-15] MEDS: MELATONIN 5 MG TABLET PO (21:21)
[2023-04-16] VITALS (7 sets, daily range): BP systolic 128–139; BP diastolic 59–79; PULSE 96–111; RESP 16–20; TEMP 36.1–36.7; O2SAT 96–99
[2023-04-16] MEDS: PIPERACILLN/TAZ 3.375GM/NS50ML 3.375 GM/50 ML BAG IVPB ×2 (00:03→05:29)
[2023-04-16 07:11] LABS: Anion Gap 7 mmol/L (8-16); Blood Urea Nitrogen 10 mg/dL (9-20); Calcium 8.2 mg/dL (8.4-10.2); Carbon Dioxide 25 mmol/L (22-30); Chloride 102 mmol/L (98-107); Estimated CRCL calculation 133 ml/min; Estimated Glomerular Filt Rate > 60; Glucose 115 mg/dL (65-110); Potassium 3.3 mmol/L (3.4-5.0); Sodium 134 mmol/L (137-145)
[2023-04-16 07:12] LABS: Hematocrit 42.3 % (42.0-52.0); Hemoglobin 13.7 g/dL (14.0-18.0); Mean Corpuscular HGB Conc 32.4 g/dl (32-36); Mean Corpuscular Hemoglobin 34.2 pg (26-34); Mean Corpuscular Volume 105.5 fl (80-100); Mean Platelet Volume 9.7 fl (7.4-10.4); Platelet Count Result 225 k/mm3 (150-375); Red Blood Count 4.01 M/mm3 (4.6-6.20); Red Cell Distribution Width 12.9 % (11.5-14.5); White Blood Count 11.4 K/mm3 (4.5-10.0)
[2023-04-16] MEDS: ENOXAPARIN 40 MG/0.4 ML SYRINGE SUB-Q (08:09)
[2023-04-16] MEDS: lisinopriL 10 MG TABLET PO (08:10)
[2023-04-16] MEDS: NICOTINE (*PBKC) 21 MG PATCH 1 PATCH TRANSDERM (08:10)
[2023-04-16] MEDS: FAMOTIDINE 20 MG/2 ML VIAL IV PUSH ×2 (08:10→20:37)
[2023-04-16] MEDS: AMOXICILLIN/CLAVULANATE K 875-125 MG TAB 1 TABLET PO ×2 (11:58→20:37)
--- NOTE | 2023-04-16 15:41 | PM.PNGS ---
Progress Note: A&P Assessment and Plan (1) Left inguinal hernia: Code(s): K40.90 - Unilateral inguinal hernia, without obstruction or gangrene, not specified as recurrent Status: Acute Assessment and Plan: cont routine postop care, likely c mild ileus, cont to encourage OOB/IS, home soon (2) Ileus: Code(s): K56.7 - Ileus, unspecified Status: Acute Assessment and Plan: some flatus today, cont to encourage OOB/IS, cont low fiber diet for now Subjective Subjective Date/Time Seen: 04/16/23 15:41 Interval history: feels worse today, reports some nausea and poor appetite, no abd pain but feels bloated Review of Systems Review of Systems: All systems reviewed & are unremarkable except as noted in HPI and below Exam Const: General: cooperative, no acute distress and uncomfortable Resp: Auscultation: clear to auscultation bilaterally Cardio: Rate: regular rate Rhythm: regular rhythm GI: Inspection: normal to inspection, distended and incision GI Palp: Yes abdominal tenderness, Yes Soft to palpation, Yes Tenderness to palpation present (GI), No Guarding due to palpation present (GI) and No Rigid due to palpation Objective Data Vital Signs Vital Signs: Vital Signs - 24 hr 04/15/23 16:00 04/15/23 20:00 04/15/23 19:45 Temperature 36.3 C L Pulse Rate 107 H 102 H 104 H Respiratory Rate 16 Blood Pressure 135/87 Pulse Oximetry 97 Oxygen Delivery 04/16/23 00:00 04/16/23 05:05 04/16/23 04:00 Temperature 36.4 C L Pulse Rate 108 H 110 H 96 Respiratory Rate 16 Blood Pressure 139/79 Pulse Oximetry 99 Oxygen Delivery 04/16/23 08:00 04/16/23 14:00 Temperature 36.7 C Pulse Rate 111 H Respiratory Rate 16 Blood Pressure 130/72 Pulse Oximetry 96 Oxygen Delivery Room Air Intake/Output Intake/Output: Intake & Output 04/13/23 04/14/23 04/15/23 04/16/23 23:59 23:59 23:59 23:59 Intake Total 6769 4337 1385 830 Output Total 1607 300 300 150 Balance 4770 2507 1080 680 Meds/Results Medications: Active Medications Generic Name Dose Route Start Last Admin Trade Name Freq PRN Reason Stop Dose Admin Acetaminophen 1,000 mg 04/13/23 10:36 04/15/23 13:55 Acetaminophen 500 Mg Tablet PO 1,000 mg Q6H PRN Administration Mild Pain (1-3) or Fever Hydrocodone Bitart/Acetaminophen 1 tab 04/12/23 13:27 04/14/23 15:49 Hydrocodone/Acetaminophen (*Crx) 5-325 Mg Tablet PO 1 tab Q4H PRN Administration Pain Rated 4-6 Hydrocodone Bitart/Acetaminophen 1 tab 04/14/23 12:05 04/15/23 21:15 Hydrocodone/Acetaminophen (*Crx) 10-325 Mg Tablet PO 1 tab Q6H PRN Administration Pain Rated 7-10 Amoxicillin/Clavulanate Potassium 1 tablet 04/16/23 12:00 04/16/23 11:58 Amoxicillin/Clavulanate K 875-125 Mg Tab PO 1 tablet Q12HR SHANE Administration Enoxaparin Sodium 40 mg 04/13/23 09:00 04/16/23 08:09 Enoxaparin 40 Mg/0.4 Ml Syringe SUB-Q 40 mg DAILY SHANE Administration Famotidine 20 mg 04/12/23 21:00 04/16/23 08:10 Famotidine 20 Mg/2 Ml Vial IV PUSH 20 mg Q12HR SHANE Administration Lisinopril 10 mg 04/13/23 10:41 04/16/23 08:10 Lisinopril 10 Mg Tablet PO 10 mg DAILY SHANE Administration Melatonin 5 mg 04/13/23 21:00 04/15/23 21:21 Melatonin 5 Mg Tablet PO 5 mg HS SHANE Administration Morphine Sulfate 2 mg 04/12/23 13:27 Morphine Sulfate (*Crx) 2 Mg/Ml Inj IV PUSH Q2H PRN Pain Rated 4-6 Morphine Sulfate 4 mg 04/12/23 13:27 04/13/23 00:31 Morphine Sulfate (*Crx) 4 Mg/Ml Inj IV PUSH 4 mg Q2H PRN Administration Pain Rated 7-10 Naloxone HCl 0.1 mg 04/12/23 13:27 Naloxone Hcl 0.4 Mg/Ml Vial IV PUSH Q2M PRN Opiate Reversal Nicotine 1 patch 04/15/23 16:39 04/16/23 08:10 Nicotine (*Pbkc) 21 Mg Patch TRANSDERM 1 patch DAILY SHANE Administration Ondansetron HCl 4 mg 04/12/23 13:27 04/12/23 20:44 Ondansetron Inj 4 Mg/2 M
[2023-04-16] MEDS: polyethylene glycoL 3350 17 GM POWD.PACK PO (16:03)
[2023-04-16] MEDS: MELATONIN 5 MG TABLET PO (20:36)
[2023-04-16] MEDS: ZOLPIDEM TARTRATE (*CRX) 5 MG TABLET PO (20:37)
[2023-04-17 06:00] VITALS: BP 170/84; PULSE 109; RESP 16; TEMP 37.2; O2SAT 99
[2023-04-17 07:23] LABS: Hematocrit 45.6 % (42.0-52.0); Hemoglobin 15.1 g/dL (14.0-18.0); Mean Corpuscular HGB Conc 33.1 g/dl (32-36); Mean Corpuscular Hemoglobin 35.2 pg (26-34); Mean Corpuscular Volume 106.3 fl (80-100); Mean Platelet Volume 9.7 fl (7.4-10.4); Platelet Count Result 284 k/mm3 (150-375); Red Blood Count 4.29 M/mm3 (4.6-6.20); Red Cell Distribution Width 13.2 % (11.5-14.5); White Blood Count 9.6 K/mm3 (4.5-10.0)
[2023-04-17 07:30] LABS: Anion Gap 9 mmol/L (8-16); Blood Urea Nitrogen 11 mg/dL (9-20); Calcium 8.9 mg/dL (8.4-10.2); Carbon Dioxide 27 mmol/L (22-30); Chloride 99 mmol/L (98-107); Estimated CRCL calculation 113 ml/min; Estimated Glomerular Filt Rate > 60; Glucose 111 mg/dL (65-110); Potassium 3.5 mmol/L (3.4-5.0); Sodium 135 mmol/L (137-145)
[2023-04-17] MEDS: NICOTINE (*PBKC) 21 MG PATCH 1 PATCH TRANSDERM (08:41)
[2023-04-17] MEDS: lisinopriL 10 MG TABLET PO (08:41)
[2023-04-17] MEDS: ENOXAPARIN 40 MG/0.4 ML SYRINGE SUB-Q (08:41)
[2023-04-17] MEDS: FAMOTIDINE 20 MG/2 ML VIAL IV PUSH (08:41)
[2023-04-17] MEDS: AMOXICILLIN/CLAVULANATE K 875-125 MG TAB 1 TABLET PO (08:41)
[2023-04-17] MEDS: polyethylene glycoL 3350 17 GM POWD.PACK PO (08:51)
--- NOTE | 2023-04-17 09:37 | PM.DS ---
DS: Admitting Diagnosis Discharge Date April 17, 2023 Admitting Diagnosis Incarcerated left inguinal hernia DS: Discharge Diagnosis Discharge Diagnosis (1) Strangulated inguinal hernia: Code(s): K40.30 - Unilateral inguinal hernia, with obstruction, without gangrene, not specified as recurrent Status: Acute Assessment and Plan: Patient underwent a sigmoid colon resection due to struggling sigmoid colon and a left inguinal hernia. Postoperatively he has done well and feels good today. White blood cell count is normal. He is to be discharged home today with follow-up to see Dr. Crook in the office in 1 to 2 weeks. Patient is continue all previous home medications. Prescription for [place] was sent to the pharmacy. DS: Summary Hospital Course Reason for hospitalization: Strangulated left inguinal hernia Hospital Course: Patient had a non reducible and incarcerated left inguinal hernia. He went to the operating room for an attempt at a robotic assisted laparoscopic left inguinal hernia with mesh was attempted. There was signs of strangulation of the sigmoid colon which was incarcerated in the hernia. Dr. Crook then proceeded to convert the laparoscopic procedure to an open laparotomy with resection strangulated portion the sigmoid colon. Findings and details of the operative procedure can be found his formal dictated operative note. Postoperatively the patient went to the surgical floor where he did very well. He tolerated clear liquids and was advanced to solid food. He was tolerating solid food but did not really like the food so his intake of solid food was not very much. He was passing flatus but had not had a bowel movement. She was given some MiraLax and was continued to have flatus but still no bowel movement. He was then given 1 dose of milk of magnesia. His incision was healing appropriately without any redness or drainage. No evidence of wound infection was noted. Scotty were in place. His abdomen was benign aside from expected mild tenderness around the incision. He was afebrile and his white blood cell count was normal on the day of discharge. Electrolytes were all normal as well. He was up walking the hallway without any difficulty. He was discharged home in improved condition. Status at Discharge Functional status at discharge: independent ambulation Overall status at discharge: patient is progressing back to baseline Time Spent with Patient Time attestation: Total time spent providing and/or coordinating discharge services: Time spent: Less than 30 minutes Exam Const: General: cooperative and healthy appearing Resp: Effort & Inspection: normal respiratory effort and able to speak in complete sentences Auscultation: clear to auscultation bilaterally Cardio: Rate: regular rate Rhythm: regular rhythm GI: Other: Abdomen is soft and nondistended. Midline incision is intact without evidence of any redness or drainage. [place] are in place. Bowel sounds are noted. : Penis: Yes edematous Scrotum: edematous Other: Mild edema of the scrotum and penis. No ecchymosis. Neuro: General: patient oriented x3 Cranial nerves: Yes CN's II-XII intact bilaterally Psych: Appearance: grossly normal and well kempt Insight: Good insight present (Psych) DS: Data Data Completed and Pending Completed studies during hospitalization: Pending at discharge 04/12/23 13:06 Surgical [PTH] Routine Labs on day of discharge: Labs from last 24 hours 04/17/23 06:14 WBC 9.6 RBC 4.29 L Hgb 15.1 Hct 45.6 MCV 106.3 H MCH 35.2 H MCHC 33.1 RDW 13.2 Plt Count 284 MPV 9.7 Sodium 135 L Potassium 3.5 Chloride 99 Carbon Dioxide 27 Anion Gap 9 BUN 11 Creatinine 0.60 L Estim Creat Clear Calc 113 Estimated GFR > 60 Glucose 111 H Calcium 8.9 Discharge Plan Discharge Attending physician on discharge: Yaz Crook Discharging Clinician: Alejandra Shelby
[2023-04-17] MEDS: MAGNESIUM HYDROXIDE SUSP 30 ML UDC PO (09:59)
== END 2023-04-17 12:05 | disposition home or self-care (01) | DRG 329 ==
LOC: ANH3MEDSUR 14:25
PROVIDERS: Nurse Practitioner Family; Admitting Provider Surgery; PCP Nurse Practitioner Family; Visit Provider Surgery
PROC: 8E0Y4CZ Robotic Assisted Procedure of Lower Extremity, Percutaneous Endoscopic Approach (ICD-10-PCS; CPT 49650; principal; 2023-04-12 11:30)
DX: K40.30 Unilateral inguinal hernia, with obstruction, without gangrene, not specified as recurrent (principal); K63.1 Perforation of intestine (nontraumatic); K91.89 Other postprocedural complications and disorders of digestive system; K56.7 Ileus, unspecified; Z53.31 Laparoscopic surgical procedure converted to open procedure; E78.5 Hyperlipidemia, unspecified; I10 Essential (primary) hypertension; M10.9 Gout, unspecified; F17.210 Nicotine dependence, cigarettes, uncomplicated
CPT/HCPCS: 36415; 80048; 82565; 85025; 85027; 86850; 86900; 86901; 88307; 93005; A9270; J0690; J1100; J1170; J1650; J1885; J2250; J2270; J2371; J2405; J2543; J2704; J7120

== ENCOUNTER 2023-05-21 12:05 | Inpatient (IN) | payer OTHER, SELFPAY ==
[2023-05-21] VITALS (12 sets, daily range): BP systolic 71–129; BP diastolic 48–67; PULSE 87–143; RESP 14–33; TEMP 36.7–36.9; O2SAT 96–100
--- NOTE | ~2023-05-21 | CT_ITS ---
EXAMINATION: CT brain wo con DATE: 05/22/2023 11:17 INDICATION: Left facial droop TECHNIQUE: Computed tomography (CT) of the head was performed without intravenous contrast. The mA wa s adjusted according to patient size. Iterative reconstruction technique was employed. Exam dose: 60 5.33 mGy-cm total exam DLP. COMPARISON: None FINDINGS: Prominent bilateral vertebral artery calcifications, basilar artery and bilateral carotid s iphon internal carotid artery calcifications. There is central and cortical cerebral atrophy and cerebellar atrophy. No intracranial mass lesion or hemorrhage or cerebrovascular accident, midline shift or mass effect i s detected. No subdural or epidural hematoma. Mild mucoperiosteal thickening of the right maxillary sinus and patchy soft tissue thickening of the ethmoid air cells is noted bilaterally. There are some secretions within the right frontal sinus. Mil d fluid and/or soft tissue thickening of the left sphenoid sinus. The mastoid air cells appear normal ly developed and aerated. IMPRESSION: Cerebral atherosclerosis Cerebral and cerebellar mildly prominent atrophy Reviewed, dictated and finalized at [facility]. Reviewed, dictated and finalized at location A. N END DEPARTMENT SUPERVISOR
--- NOTE | ~2023-05-21 | CT_ITS ---
EXAMINATION: CT abdomen pelvis w con INDICATION: Abdominal pain status post hernia repair TECHNIQUE: Computed tomographic images of the abdomen and pelvis were obtained after the administrati on of 100 cc of Omnipaque 350 intravenous contrast. The dose-length product (DLP) was 830.67 mGy-cm. Automated exposure control and iterative reconstruction technique were employed. COMPARISON: None available FINDINGS: Minimal dependent atelectasis is present in the lung bases. The heart size is normal. There is a posterior left eighth rib fracture with nonunion. There is a 7 mm nodule of the right middle lo be abutting the pleura on image 13. The liver, spleen, pancreas, gallbladder, and adrenal glands are normal. The kidneys are unremarkable. There is an approximately 7.6 x 6.0 cm collection of fluid in a n gas in the anterior abdominal wall near the umbilicus. There is an approximately 6.7 x 1.0 cm absce ss in the anterior pelvis (image 158). There is an approximately 3.6 x 1.5 cm abscess of the left low er quadrant adjacent to a surgical anastomosis of the sigmoid colon. These abscesses appear to commun icate with one another. Gas and fluid are also present in the left inguinal canal. A segment of sigmo id colon passes adjacent to, but does not appear to enter, the left inguinal canal. There are no dila elizabeth loops of bowel. IMPRESSION: 1. Pelvic abscesses an abscess of the anterior abdominal wall which appear to communicate. 2. Gas and fluid in the left inguinal canal, probable abscess. 3. Right middle lobe nodule abutting the pleura. Recommend follow-up CT in 6-12 months. Reviewed, dictated and finalized at location B. RUNNER IMPRESSION: 1. Pelvic abscesses an abscess of the anterior abdominal wall which appear to c ommunicate. 2. Gas and fluid in the left inguinal canal, probable abscess. 3. Right middle lobe nodule abutting the pleura. Recommend follow-up CT in 6-12 months.
--- NOTE | ~2023-05-21 | XR_ITS ---
EXAMINATION: XR chest ET placement Exam Date/Time: 05/26/2023 20:55 DIESEL STATIONARY ENGINEER HISTORY: retracted ET per last Xray Comparison: Same date at 5:07 PM. RESULT: Lines, tubes, and devices: Endotracheal tube has been retracted, now terminating 2.8 cm above the ca margaret. The side port of the NG tube appears slightly more distal which is likely artifact of positioni ng and projection. Lungs and pleura: Increased airspace disease in the right lower lung, silhouetting the hemidiaphragm . Stable left basilar scar/atelectasis. Stable bilateral costophrenic angle blunting. Cardiomediastinal silhouette: Stable. Other: No acute osseous or upper abdominal finding. IMPRESSION: Endotracheal tube now terminates 2.7 cm above the rosalia. Apparent change in position of the NG tube is likely due to projection, if repositioned in the interv al, the side-port is probably sufficiently below the level of the EG junction. New airspace disease in the right lung base, likely aspiration or atelectasis given the rapid onset. Stable interstitial edema and small bilateral effusions. Reviewed, dictated and finalized at location [facility]. EL STATIONARY ENGINEER IMPRESSION: Endotracheal tube now terminates 2.7 cm above the rosalia. Apparent change in position of the NG tube is likely due to projection, if repo sitioned in the interval, the side-port is probably sufficiently below the leve l of the EG junction. New airspace disease in the right lung base, likely aspiration or atelectasis g iven the rapid onset. Stable interstitial edema and small bilateral effusions.
--- NOTE | ~2023-05-21 | XR_ITS ---
EXAMINATION: XR chest ET placement Exam Date/Time: 05/26/2023 17:15 PROTOCOL MANAGER HISTORY: ET PLACEMENT Comparison: 05/21/2023. RESULT: Lines, tubes, and devices: New endotracheal tube terminating 1.5 cm above the rosalia. New NG tube, t ip over the stomach, side port near the GE junction. Lungs and pleura: Mild peripheral reticular opacities. Streaky bibasilar opacities. Mild bilateral c ostophrenic angle blunting. Cardiomediastinal silhouette: Stable. Other: No acute osseous or upper abdominal finding. IMPRESSION: Low positioned endotracheal tube, consider retraction by 2.5 cm. Shallow positioned NG tube, consider advancing by 5 cm. Mild interstitial edema. Likely small bilateral pleural effusions. Reviewed, dictated and finalized at location K. OCOL MANAGER
--- NOTE | ~2023-05-21 | XR_ITS ---
Clinical Indication: Weakness AP and lateral views of the chest: Comparison: None Findings: The lungs are clear, without evidence of focal consolidation or pleural effusion. Cardiome diastinal silhouette is within normal limits. Bones and soft tissues are unremarkable. Impression: Normal chest. Reviewed, dictated and finalized at location . SPLICER Impression: Normal chest.
--- NOTE | ~2023-05-21 | XR_ITS ---
EXAMINATION: XR enema water soluble DATE: 05/25/2023 11:53 INDICATION: Enterocutaneous fistula with pelvic abscess TECHNIQUE: A health companion radiograph was obtained on 2 images. A catheter was inserted into the patient's re ctum. Contrast was infused by gravity to the level of the splenic flexure of the colon. 18 fluoroscop ic images were obtained. Fluoroscopy exposure time was 2.2 minutes. COMPARISON: CT dated 05/21/2023 and 05/25/2023 FINDINGS: There are multiple diverticula along the sigmoid and descending colon. There is extraluminal extravas ation of contrast in the left hemipelvis which occurs in the region of sigmoid anastomosis. There is extension of contrast into the left inguinal region as well as the collection anterior to the sigmoid colon underlying the wound VAC which can be seen on the health companion radiograph. Right femoral central veno us catheter with distal tip at the bifurcation of the right common iliac vein on subsequent CT. IMPRESSION: 1. 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 See separate CT report for further detail of the location of the leaked contrast. Reviewed, dictated and finalized at location A. ROENTEROLOGIST IMPRESSION: 1. 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 See separate CT report for further detail of the locati on of the leaked contrast.
--- NOTE | ~2023-05-21 | XR_ITS ---
EXAM: XR abdomen gastric tube insert DATE: 05/26/2023 17:29 HISTORY: NG PLACEMENT . COMPARISON: X-ray chest, same date. FINDINGS: Lung bases excluded from the image. The tip of the nasogastric tube projects over the expe cted location of the stomach but is incompletely visualized. Retained contrast in the kidneys, greate r on the right. The tip of a right femoral catheter projects over the expected location of the right common femoral vein. Ill-defined contrast collection over the rectum and lower pelvis. IMPRESSION: NG tube barely included in the [id number] but is noted to be in shallow position in th e concurrent x-ray chest, consider advancing by 5 cm. Reviewed, dictated and finalized at location K. E ATTENDANT IMPRESSION: NG tube barely included in the [id number] but is noted to be in shallow position in the concurrent x-ray chest, consider advancing by 5 cm.
--- NOTE | ~2023-05-21 | CT_ITS ---
EXAMINATION: CT abdomen pelvis w con, CT pelvis wo con DATE: 05/25/2023 12:03 INDICATION: Enterocutaneous fistula. TECHNIQUE: 1. Computed tomography (CT) of the pelvis was performed without intravenous contrast and following ad ministration water-soluble rectal contrast. Automated exposure control and iterative reconstruction t echnique were employed. The dose-length product was 748.9 mGy-cm. 2. CT of the abdomen and pelvis was performed with 100 mL Omnipaque-350 intravenous contrast and foll owing administration of water-soluble rectal contrast. Automated exposure control and iterative recon struction technique were employed. The dose-length product was 1151.43 mGy-cm. COMPARISON: CT dated 05/21/2023 FINDINGS: Small bilateral pleural effusions with dependent passive atelectasis in the bilateral lower lobes and right middle lobe. Small region of groundglass opacity in the lingula which could represent addition al atelectasis or pneumonia. Heart size is normal. No pericardial effusion. Sludge versus some wei ously excreted contrast related to the CT from a few days prior layering dependently in the otherwise normal gallbladder. Likely diffuse hepatic steatosis although specificities decreased by the presenc e of intravenous contrast. Spleen, pancreas, bilateral adrenal glands and kidneys are normal. Gas and a Pereira catheter in the partially decompressed bladder. Small bowel and appendix are normal. There are multiple diverticula along the sigmoid and descending colon. The rectal contrast extends through a perforation at the site of a sigmoid colon anastomosis. This ca n be best appreciated on coronal series 602, image 46. Additional contrast extends into a small retro peritoneal collection extending cephalad between the distal descending colon and the more posterior i liac is muscle. There is essentially large amount of contrast which extends into the anterior periton eal space in the left pelvis. A portion of the contrast extends through the midline of the anterior a bdominal wall into the previously gas and fluid-filled abscess cavity in the anterior pelvic wall whi ch I) decompressed with an overlying wound VAC which appears to be collecting contrast along the skin surface. There is additional extension of contrast caudally along the along the left inguinal canal at the periphery of a small fat-containing left inguinal hernia. This communicates with an 8.9 x 8.0 x 4.6 cm abscess cavity in the more superficial subcutaneous fat which is increased in size since the prior study. No evident extension of contrast into the visualized scrotum. There is a minimal amount of noncontrast opacified free fluid or posteriorly in the deep pelvis. No o ther free intraperitoneal gas from the previously noted collection of contrast with small amount of g as in the anterior left pelvis. No pathologically enlarged abdominal or pelvic lymphadenopathy. Mild lower thoracic spondylosis. IMPRESSION: 1. 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 2. Additional small retroperitoneal collection of extraluminal contrast in the left pelvis as well as extension along the left inguinal canal to a second 8.9 x 8.0 x 4.6 cm subcutaneous abscess located anterior to the distal left inguinal canal. 3. Small bilateral pleural effusions with dependent compressive atelectasis in the bilateral lower lo bes. 4. Small region of groundglass opacity in the lingula which could represent additional atelectasis or pneumonia. Reviewed, dictated and finalized at location A. S SERVICE REP IMPRESSION: 1. Enterocutaneous
--- NOTE | 2023-05-21 12:08 | ECG_ITS ---
Measurements Intervals [place] Rate: 143 P: 34 SC: 136 QRS: -45 QRSD: 89 T: 61 QT: 310 QTc: 479 Interpretive Statements SINUS TACHYCARDIA, POSSIBLE ATRIAL FLUTTER MARKED LEFT AXIS DEVIATION [QRS AXIS < -30] POOR R-WAVE PROGRESSION ABNORMAL ECG Electronically Signed On 05-21-2023 15:21:12 [employer] by Bijan Ngo M.D.
--- NOTE | 2023-05-21 12:40 | ED.WEAKNESS ---
HPI - Weakness General Chief complaint: Weakness Stated complaint: weakness Time Seen by Provider: 05/21/23 12:13 Source: patient and family Mode of arrival: EMS Limitations: no limitations History of Present Illness HPI Narrative: 72 years old white male came from home with his by ambulance complaining of general weakness, poor p.o. intake since had the hernia repair April 12, 2023. This morning patient was not able to get out of bed and slid out of bed to the ground, no trauma. Patient denies any fever, chills, nausea, vomiting. reports intermittent diarrhea up to 5 times a day every 2-3 days. Patient does smoke cigarettes, quit drinking alcohol and using marijuana since having the surgery April 12 2023 Related Data Home Medications Medication Instructions Recorded Confirmed multivitamin 1 tablet PO DAILY 12/25/19 04/28/23 omega [id number] oil 1,000 mg 1 cap PO DAILY 03/18/23 04/28/23 (120 mg-180 mg) capsule (Fish Oil) Allergies Allergy/AdvReac Type Severity Reaction Status Date / Time No Known Allergies Allergy Verified 05/21/23 14:24 Review of Systems Review of Systems: All systems reviewed & are unremarkable except as noted in HPI and below PMFSH Past Medical History Medical History (Updated 05/21/23 @ 14:34 by Dana Rodrigez MD) Anxiety attack Dyslipidemia Elevated lipids Essential (primary) hypertension Gout Hx of pleural empyema 02/2015 Incidental lung nodule, less than or equal to 3mm Pneumonia (~02/09/15) Positive colorectal cancer screening using Cologuard test Pre-diabetes Scrotum swelling Vitamin D deficiency Surgical History Surgical History (Updated 05/21/23 @ 14:24 by Dee Lamas) History of thoracotomy right - 02/2015 Hx of inguinal hernia repair robotic assisted exploratory laparoscopy, reduction of strangulated left inguinal hernia with sigmoid colon, conversion to open laparotomy, partial sigmoid colon resection with primary anastomosis, abdominal washout on 04/12/23 [place] teeth extracted Family History Family History (System 05/21/23 @ 14:24 by Dee Lamas) Other Heart disease Exam Narrative: General appearance: Well-developed, well-nourished, looks ill Skin: pale skin Head: Normocephalic, nontraumatic Eyes: Clear conjunctiva ENT: dry oral cavity Neck: Supple, nontender Chest and respiratory: Airway patent, no respiratory distress, no accessory muscle use Heart: Regular rate/rhythm Abdomen: diffuse tenderness mainly around the umbilicus, hernia surgical scar is clean and dry, surrounded by erythema, warm, severely tender Vascular: Normal peripheral pulses, normal capillary refill. Musculoskeletal: Normal range of motion, nontender back Neurologic: Alert and oriented ?3, DIRECTOR OF BUSINESS DEVELOPMENT is normal as tested, no gross motor deficit Course Consultations Consultation #1: Dr. Shelby Date: 05/21/23 Time: 14:34 Vital Signs Vital signs: Vital Signs Temperature 36.7 C 05/21/23 12:03 Temperature 36.7 C 05/21/23 12:03 Pulse Rate 143 H 05/21/23 12:10 Respiratory Rate 32 H 05/21/23 12:10 Blood Pressure 99/56 L 05/21/23 12:10 Pulse Oximetry 96 05/21/23 12:10 MDM - Weakness MDM Narrative Medical decision making narrative: patient came with the above symptoms, vital signs showed blood pressure 99 / 56, heart rate 143 sinus tachycardia, temperature 36.7?. Physical examination showed debilitating patient, with diffuse abdominal pain and central abdomen cellulitis at the hernia repair scar. Differential diagnosis include cellulitis, abdominal wall abscess, infection status post surgery, electrolyte imbalance, dehydration. Workup
[2023-05-21] MEDS: SODIUM CHLORIDE 0.9% IV 1,000 ML 999 ML IV CONT ×2 (13:05→14:25)
[2023-05-21 13:11] LABS: Hematocrit 44.3 % (42.0-52.0); Hemoglobin 14.9 g/dL (14.0-18.0); Mean Corpuscular HGB Conc 33.6 g/dl (32-36); Mean Corpuscular Hemoglobin 33.4 pg (26-34); Mean Corpuscular Volume 99.3 fl (80-100); Mean Platelet Volume 9.5 fl (7.4-10.4); Platelet Count Result 433 k/mm3 (150-375); Red Blood Count 4.46 M/mm3 (4.6-6.20); Red Cell Distribution Width 12.8 % (11.5-14.5); White Blood Count 28.7 K/mm3 (4.5-10.0)
[2023-05-21 13:14] LABS: Estimated CRCL calculation 67 ml/min; Estimated Glomerular Filt Rate > 60
[2023-05-21 13:20] LABS: Alanine Aminotransferase 69 U/L (6-50); Albumin Level 3.2 g/dL (3.5-5.1); Alkaline Phosphatase 137 U/L (38-126); Anion Gap 16 mmol/L (8-16); Aspartate Amino Transferase 60 U/L (17-59); Bilirubin,Total 1.1 mg/dL (0.2-1.3); Blood Urea Nitrogen 18 mg/dL (9-20); Calcium 9.3 mg/dL (8.4-10.2); Carbon Dioxide 20 mmol/L (22-30); Chloride 91 mmol/L (98-107); Estimated CRCL calculation 67 ml/min; Estimated Glomerular Filt Rate > 60; Glucose 153 mg/dL (65-110); Potassium 4.1 mmol/L (3.4-5.0); Sodium 127 mmol/L (137-145)
[2023-05-21 13:24] LABS: Lactic Acid Reflex 4.9 mmol/L (0.7-2.0)
[2023-05-21 13:25] LABS: INR 1.3; Prothrombin Time 17.2 Seconds (11.1-14.7)
[2023-05-21 13:26] LABS: Partial Thromboplastin Time 37.7 SECONDS (22.3-36.8)
[2023-05-21] MEDS: ceFAZolin 1 GM/NS 50 ML 1 GM/50 ML BAG IVPB (13:26)
[2023-05-21 13:28] LABS: Band Neutrophils Percent 7 % (0-6); Lymphocytes Absolute Manual 1.43 K/mm3 (1.1-4.5); Monocytes Absolute Manual 2.29 K/mm3 (0.1-0.90); Monocytes Percent Manual 8 % (3-9); Neutrophils Absolute Manual 24.96 K/mm3 (1.3-6.7); Neutrophils Percent Manual 80 % (46-73); Total Cells Counted 100
[2023-05-21 13:29] LABS: Platelet Estimate Increased (Adequate); Schistocytes None Seen (NORMAL)
[2023-05-21 13:45] LABS: Influenza A QL RT-PCR Negative (Negative); Influenza B QL RT-PCR Negative (Negative); RSV RNA, RT-PCR Negative (Negative); SARS-CoV-2 RNA PCR Negative (Negative)
[2023-05-21 14:11] LABS: CRP 26.9 mg/dL (<1.0)
[2023-05-21] MEDS: VANCOMYCIN 2,000 MG/NS 500 ML 2,000 MG/500 ML BAG 250 MG IVPB (14:25)
[2023-05-21 14:43] LABS: Appearance Urine Cloudy (Clear); Bacteria Urine None Seen /hpf; Bilirubin Urine 2+ (Negative); Blood Urine Negative (Negative); Color Urine Dark Yellow (Yellow); Glucose Urine UA Negative (Negative); Ketones Urine Trace mg/dL (Negative); Leukocyte Esterase Ur Trace LEU/UL (Negative); Need Manual Microscopic Reviewed; Nitrate Urine Negative (Negative); Protein Urine 1+ mg/dL (Negative); RBC Urine 0-2 /hpf (0-2); Specific Grav Ur 1.025 (1.001-1.035); Squamous Epithelial Cell Urine Occasional /hpf (Few); WBC Urine 0-5 /hpf; pH Urine 5.5 (5.0-9.0)
[2023-05-21 14:44] LABS: Add Urine Microscopic? YES
[2023-05-21] MEDS: SODIUM CHLORIDE 0.9% IV 1,000 ML 500 ML IV CONT (14:46)
[2023-05-21 16:06] LABS: Reflex Lactic Acid Yes or No Add Lactic
--- NOTE | 2023-05-21 16:22 | ADMGEN ---
This patient, Truman Miranda, was admitted to Medical Room 347-01. Patient/family oriented to hospital policies and general routines including ID bracelet, bed and alarms, visiting hours, pain management, procedures, bathroom and other care routines, personal items, smoking policy, room service/diet, and visiting hours. Information on how to activate the Rapid Response Team has been discussed. Patient/Family are encouraged to report perceived risks to care and to ask questions if they do not understand what they are told or what they should do.
[2023-05-21] MEDS: SODIUM CHLORIDE 0.9% IV 1,000 ML 125 ML IV CONT (17:27)
[2023-05-21] MEDS: PIPERACILLN/TAZ 3.375GM/NS50ML 3.375 GM/50 ML BAG IVPB ×2 (17:27→23:55)
--- NOTE | 2023-05-21 17:31 | WPDCN ---
Assessment and Plan Assessment and plan (1) Abdominal wall abscess: Code(s): L02.211 - Cutaneous abscess of abdominal wall Status: Acute Assessment and Plan: patient has a large central abdominal abscess and wound infection. Is not draining [place] [id number]. No evidence of necrotizing fasciitis. Patient is hemodynamically stable. Get him started on some IV antibiotics which has included Zosyn, Flagyl, and vancomycin. Keep him NPO tonight. He will need to go to the operating room tomorrow morning for incision and drainage of the abdominal abscess. I did review the CT scan with the radiologist and he does not feel that the small pelvic abscess is amenable to percutaneous drainage due to its small size presently. The CT scan seems to suggest that the abscess cavities may connect so draining the abdominal abscess may also drain the abscess underneath the anterior abdominal wall. I discussed plan with the patient and he agrees to proceed with surgery in the morning. (2) Abscess of male pelvis: Code(s): K65.1 - Peritoneal abscess Status: Acute Assessment and Plan: Will need to see how well draining the abdominal abscess does with treating the patient's areas of infection. The intra-abdominal portion may connect with the abdominal wall portion. Could repeat a CT scan in a couple of days to see the pelvic abscess has gotten larger to the point where he can be drained percutaneously or it completely resolves. If there is any suspicion that the abscess is due to a leaking anastomosis then a water-soluble lower GI enema can be performed or a CT scan with rectal contrast. HPI Data of Consult Date/Time: 05/21/23 17:31 Requesting Physician: Daniel Magana MD Primary Care Provider: UNKNOWN,DOCTOR Consult Narrative Reason for consult: Postoperative abdominal wall abscess and pelvic abscess. Narrative: Truman Miranda is a 72 year old male Who almost 6 weeks ago presented with an incarcerated left inguinal hernia with sigmoid colon obstruction. He underwent attempted robotic laparoscopic reduction of the incarcerated hernia and repair by Dr. Crook. it was found that the sigmoid colon had developed a perforation and some of the sigmoid colon was ischemic and so the procedure was converted to an open laparotomy with sigmoid colon resection and primary in stable anastomosis and repair of the left inguinal hernia. He recovered in the hospital and was discharged home after being in the hospital for about a week. He was doing fairly well until about 1 week ago when he started having worsening pain. He is having bowel movements which are loose. He denies have any fevers at home. He presented to the emergency room today in the midportion of the abdomen. CT scan abdomen pelvis showed large abdominal abscess containing fluid and air. There appeared to be some communication with a smaller abscess in the pelvis near the sigmoid stapled anastomosis. The patient's white blood [place] was 14954. He was hemodynamically stable however. He is admitted to the hospital on IV antibiotics to include Zosyn, Flagyl, and vancomycin. On interviewing him and examining him in his room he appears to be comfortable but does complain of having pain. He is not able to ambulate very well because of the pain. Currently he is afebrile. I reviewed the CT scan with the radiologist and the largest part of the infection is in the mid anterior abdominal wall. There is a possible communication to a smaller abscess in the left side of the pelvis which at the present time is not amenable to percutaneous drainage Due to its small size. Patient states that he has not been eating all that well because he does not have much of an appetite. He denied having nausea vomiting however. Review of Systems Review of Systems: The remainder of the review of systems to include constitutional, HEENT, cardiovascular, r
--- NOTE | 2023-05-21 18:14 | PM.IMHP ---
H&P: HPI History of Present Illness Date/Time: 05/21/23 18:14 Chief Complaint: Poor Appetite, Abdominal Pain Narrative: 72 y/o M presents here with poor appetite, weight loss, abdominal pain with past medical history inguinal hernia repair on 04/12, dyslipidemia, HTN, pleural empyema in 2014, vitamin-D deficiency, and prediabetes. Patient presents here with poor appetite, reduced p.o. intake, and lower abdominal pain. Patient states that symptoms have been present since his surgery on 04/12 when he presented with an incarcerated left inguinal hernia with sigmoid colon obstruction. Initially attempted to repair laparoscopically, however once sigmoid colon was observed it was noted to have developed a perforation and was ischemic. Laparoscopic surgery was converted to a open laparotomy with resection of the sigmoid colon and repair of a left inguinal hernia. Patient then spent 1 week postop in hospital. Patient states that he has had poor appetite and poor p.o. intake since surgery. Denied increased pain with eating, but nausea without vomiting was exacerbated with eating. Patient reports in the last 2-3 days that the abdominal pain had worsened. Now exacerbated by flexion at the waist and specific twisting motions. Patient did not observe redness to his abdomen and had not realized he had developed it. Arrived to the ED tachycardic with a heart rate in the 140s, afebrile, and hypotensive. ED workup revealed a WBC of 28.7, stable hemoglobin, hyponatremia at 1:27 a.m., stable creatinine but elevated from prior (0.6 -> 0.9), lactic acidosis at 4.9, elevated LFTs, elevated alk-phos, elevated CRP, and UA equivocal for UTI. CXR normal. CT of abdomen pelvis showed pelvic abscesses with abscess of the anterior abdominal wall which appears to communicate with gas and fluid in the left inguinal canal likely also abscess. Review of Systems Review of Systems: All systems reviewed & are unremarkable except as noted in HPI and below PMFSH Past Medical History Medical History Anxiety attack Dyslipidemia Elevated lipids Essential (primary) hypertension Gout Hx of pleural empyema 02/2015 Incidental lung nodule, less than or equal to 3mm Pneumonia (~02/09/15) Positive colorectal cancer screening using Cologuard test Pre-diabetes Scrotum swelling Vitamin D deficiency Surgical History Surgical History History of thoracotomy right - 02/2015 Hx of inguinal hernia repair robotic assisted exploratory laparoscopy, reduction of strangulated left inguinal hernia with sigmoid colon, conversion to open laparotomy, partial sigmoid colon resection with primary anastomosis, abdominal washout on 04/12/23 [place] teeth extracted Family History Family History Other Heart disease Social History Social History Social History: Jose is , he retired from [employer]. He started smoking at age 20, quit for 8 yrs then restarted. Smoking packs per day: 0.5 Smoking cigarettes per day: 10.0 Years smoked: 30 Smoking pack-years: 15.00 Smoking status: Current every day smoker Tobacco type: cigarettes Additional smoking assessment comments: consumes 2 packs daily Alcohol intake: former Drinks per week: 28 Alcohol use details: consumes a 6 pack of beer daily Substance use: never Substance use type: does not use Last use: 04/10/2023 Do You Feel Safe in your Home?: Yes Lack of Transportation: No Lack of Food: Never True Current Housing: I Have Housing Concerned About Future Housing: No Difficulty Paying Gas/Electric Bills: No Difficulty Paying for Meds: No Currently Unemployed: No Education: High School Diploma/GED Difficulty w/ Childcare or Family Care: No Living arrangements:
[2023-05-21] MEDS: metroNIDAZOLE 500 MG/ISO 100ML 500 MG/100 ML BAG 100 MG IVPB ×2 (18:18→23:56)
[2023-05-21] MEDS: MORPHINE SULFATE (*CRX) 4 MG/ML INJ IV PUSH (18:29)
[2023-05-22] VITALS (17 sets, daily range): BP systolic 79–141; BP diastolic 38–93; PULSE 94–128; RESP 18–32; TEMP 36.3–36.9; O2SAT 90–100; BMI 26.8
[2023-05-22] MEDS: MORPHINE SULFATE (*CRX) 4 MG/ML INJ IV PUSH (00:29)
[2023-05-22] MEDS: PIPERACILLN/TAZ 3.375GM/NS50ML 3.375 GM/50 ML BAG IVPB ×4 (05:48→23:39)
[2023-05-22] MEDS: metroNIDAZOLE 500 MG/ISO 100ML 500 MG/100 ML BAG 100 MG IVPB (05:48)
[2023-05-22 05:50] LABS: Hematocrit 36.2 % (42.0-52.0); Hemoglobin 11.9 g/dL (14.0-18.0); Mean Corpuscular HGB Conc 32.9 g/dl (32-36); Mean Corpuscular Hemoglobin 32.6 pg (26-34); Mean Corpuscular Volume 99.2 fl (80-100); Mean Platelet Volume 9.7 fl (7.4-10.4); Platelet Count Result 356 k/mm3 (150-375); Red Blood Count 3.65 M/mm3 (4.6-6.20); Red Cell Distribution Width 13.1 % (11.5-14.5); White Blood Count 23.9 K/mm3 (4.5-10.0)
[2023-05-22 06:07] LABS: Anion Gap 8 mmol/L (8-16); Blood Urea Nitrogen 17 mg/dL (9-20); Calcium 8.1 mg/dL (8.4-10.2); Carbon Dioxide 18 mmol/L (22-30); Chloride 105 mmol/L (98-107); Estimated CRCL calculation 85 ml/min; Estimated Glomerular Filt Rate > 60; Glucose 101 mg/dL (65-110); Potassium 3.5 mmol/L (3.4-5.0); Sodium 131 mmol/L (137-145)
[2023-05-22 06:10] LABS: Lactic Acid Reflex 1.7 mmol/L (0.7-2.0)
--- NOTE | 2023-05-22 07:28 | PC.NURSE ---
Patient off of unit to PACU
--- NOTE | 2023-05-22 07:37 | WPDANESEPP ---
Anes - Eval Pre Procedure Procedure: Operation Date: 05/22/23 07:30 Proposed Procedures p Excision Abdominal Wall Mass - Chris Shelby MD Date/Time: 05/22/23 07:37 Surgeon: Heron Preop Diagnosis: Abdominal Abcess Pre Op Diagnosis: Abdominal Abscess Patient Data Age: 72 Gender: M Height: 1.75 m Weight: 82.3 kg Last Vital Signs Temp 98.2 F 05/22/23 03:56 Pulse 102 H 05/22/23 03:56 Resp 18 05/22/23 03:56 BP 83/56 L 05/22/23 03:56 Pulse Ox 95 05/22/23 03:56 O2 Del Method Room Air 05/21/23 20:00 Allergies Allergy/AdvReac Type Severity Reaction Status Date / Time No Known Allergies Allergy Verified 05/21/23 16:33 Home Medications Medication Instructions Recorded Confirmed Type multivitamin 1 tablet PO DAILY 12/25/19 05/21/23 History albuterol sulfate 90 mcg/actuation 1 puff inhalation Q4H PRN 02/25/23 05/21/23 Rx aerosol inhaler shortness of breath or wheezing #6.7 grams lisinopril 10 mg tablet 10 mg PO DAILY #90 tabs 02/25/23 05/21/23 Rx Laboratory Tests 05/21/23 05/21/23 05/21/23 12:58 12:59 13:12 WBC 28.7 H K/mm3 (4.5-10.0) RBC 4.46 L M/mm3 (4.6-6.20) Hgb 14.9 g/dL (14.0-18.0) Hct 44.3 % (42.0-52.0) MCV 99.3 fl (80-100) MCH 33.4 pg (26-34) MCHC 33.6 g/dl (32-36) RDW 12.8 % (11.5-14.5) Plt Count 433 H k/mm3 (150-375) MPV 9.5 fl (7.4-10.4) Immature Gran % (Auto) Not Reportable Neut % (Auto) Not Reportable Lymph % (Auto) Not Reportable [place] % (Auto) Not Reportable Eos % (Auto) Not Reportable Baso % (Auto) Not Reportable Lymph # (Auto) Not Reportable [place] # (Auto) Not Reportable Eos # (Auto) Not Reportable Baso # (Auto) Not Reportable Abs Immat Gran (auto) Not Reportable Absolute Neuts (auto) Not Reportable Absolute Nucleated RBC Not Reportable Total Counted 100 Neutrophils % (Manual) 80 H % (46-73) Band Neutrophils % 7 H % (0-6) Lymphocytes % (Manual) 5.0 L % (18-44) Monocytes % (Manual) 8 % (3-9) Nucleated RBC % Not Reportable Abs Neuts (Manual) 24.96 H K/mm3 (1.3-6.7) Abs Lymphs (Manual) 1.43 K/mm3 (1.1-4.5) Abs Monocytes (Manual) 2.29 H K/mm3 (0.1-0.90) Platelet Estimate Increased (Adequate) Schistocytes None seen (NORMAL) PT 17.2 H Seconds (11.1-14.7) INR 1.3 APTT 37.7 H SECONDS (22.3-36.8) Sodium 127 L mmol/L (137-145) Potassium 4.1 mmol/L (3.4-5.0) Chloride 91 L mmol/L (98-107) Carbon Dioxide 20 L mmol/L (22-30) Anion Gap 16 mmol/L (8-16) BUN 18 mg/dL (9-20) Creatinine 0.90 mg/dL 0.90 mg/dL (0.7-1.3) (0.8-1.5) Estim Creat Clear Calc 67 ml/min 67 ml/min Estimated GFR > 60 > 60 (59 - ) (59 - ) Glucose 153 H mg/dL (65-110) Hemoglobin A1c Lactic Acid 4.9 H* mmol/L (0.7-2.0) Calcium 9.3 mg/dL (8.4-10.2) Total Bilirubin 1.1 mg/dL (0.2-1.3) AST 60 H U/L (17-59) ALT 69 H U/L (6-50) Alkaline Phosphatase 137 H U/L (38-126) C-Reactive Protein 26.9 H mg/dL (<1.0) Total Protein 8.0 g/dL (6.3-8.2) Albumin 3.2 L g/dL (3.5-5.1) Urine Color Urine Appearance Urine pH Ur Specific [place] Urine Protein Urine Glucose (UA) Urine Ketones Ur Blood (Man) Urine Nitrate Urine Bilirubin Urine Urobilinogen Add Ur Microanalysis Leukocyte Esterase Rfl Urine RB
--- NOTE | 2023-05-22 07:45 | WPDANESEPPF ---
Anes - Initial Pre Proc Eval Procedure: Operation Date: 05/22/23 07:30 Proposed Procedures p Excision Abdominal Wall Mass - Chris Shelby MD Date/Time: 05/22/23 07:45 Surgeon: Daniel Magana MD Pre Op Diagnosis: Abdominal Abscess Patient Data Age: 72 Gender: M Height: 1.75 m Weight: 82.3 kg Last Vital Signs Temp 36.8 C 05/22/23 03:56 Pulse 102 H 05/22/23 03:56 Resp 18 05/22/23 03:56 BP 83/56 L 05/22/23 03:56 Pulse Ox 95 05/22/23 03:56 O2 Del Method Room Air 05/21/23 20:00 Allergies Allergy/AdvReac Type Severity Reaction Status Date / Time No Known Allergies Allergy Verified 05/21/23 16:33 Home Medications Medication Instructions Recorded Confirmed Type multivitamin 1 tablet PO DAILY 12/25/19 05/21/23 History albuterol sulfate 90 mcg/actuation 1 puff inhalation Q4H PRN 02/25/23 05/21/23 Rx aerosol inhaler shortness of breath or wheezing #6.7 grams lisinopril 10 mg tablet 10 mg PO DAILY #90 tabs 02/25/23 05/21/23 Rx Laboratory Tests 05/21/23 05/21/23 05/21/23 12:58 12:59 13:12 WBC 28.7 H K/mm3 (4.5-10.0) RBC 4.46 L M/mm3 (4.6-6.20) Hgb 14.9 g/dL (14.0-18.0) Hct 44.3 % (42.0-52.0) MCV 99.3 fl (80-100) MCH 33.4 pg (26-34) MCHC 33.6 g/dl (32-36) RDW 12.8 % (11.5-14.5) Plt Count 433 H k/mm3 (150-375) MPV 9.5 fl (7.4-10.4) Immature Gran % (Auto) Not Reportable Neut % (Auto) Not Reportable Lymph % (Auto) Not Reportable [place] % (Auto) Not Reportable Eos % (Auto) Not Reportable Baso % (Auto) Not Reportable Lymph # (Auto) Not Reportable [place] # (Auto) Not Reportable Eos # (Auto) Not Reportable Baso # (Auto) Not Reportable Abs Immat Gran (auto) Not Reportable Absolute Neuts (auto) Not Reportable Absolute Nucleated RBC Not Reportable Total Counted 100 Neutrophils % (Manual) 80 H % (46-73) Band Neutrophils % 7 H % (0-6) Lymphocytes % (Manual) 5.0 L % (18-44) Monocytes % (Manual) 8 % (3-9) Nucleated RBC % Not Reportable Abs Neuts (Manual) 24.96 H K/mm3 (1.3-6.7) Abs Lymphs (Manual) 1.43 K/mm3 (1.1-4.5) Abs Monocytes (Manual) 2.29 H K/mm3 (0.1-0.90) Platelet Estimate Increased (Adequate) Schistocytes None seen (NORMAL) PT 17.2 H Seconds (11.1-14.7) INR 1.3 APTT 37.7 H SECONDS (22.3-36.8) Sodium 127 L mmol/L (137-145) Potassium 4.1 mmol/L (3.4-5.0) Chloride 91 L mmol/L (98-107) Carbon Dioxide 20 L mmol/L (22-30) Anion Gap 16 mmol/L (8-16) BUN 18 mg/dL (9-20) Creatinine 0.90 mg/dL 0.90 mg/dL (0.7-1.3) (0.8-1.5) Estim Creat Clear Calc 67 ml/min 67 ml/min Estimated GFR > 60 > 60 (59 - ) (59 - ) Glucose 153 H mg/dL (65-110) Hemoglobin A1c Lactic Acid 4.9 H* mmol/L (0.7-2.0) Calcium 9.3 mg/dL (8.4-10.2) Total Bilirubin 1.1 mg/dL (0.2-1.3) AST 60 H U/L (17-59) ALT 69 H U/L (6-50) Alkaline Phosphatase 137 H U/L (38-126) C-Reactive Protein 26.9 H mg/dL (<1.0) Total Protein 8.0 g/dL (6.3-8.2) Albumin 3.2 L g/dL (3.5-5.1) Urine Color Urine Appearance Urine pH Ur Specific [place] Urine Protein Urine Glucose (UA) Urine Ketones Ur Blood (Man) Urine Nitrate Urine Bilirubin Urine Urobilinogen Add Ur Microanalysis Leukocyte Esterase Rfl Urine RBC Uri
[2023-05-22 08:16] LABS: Band Neutrophils Percent 25 % (0-6); Hypochromasia 1+ (NORMAL); Lymphocytes Absolute Manual 1.91 K/mm3 (1.1-4.5); Neutrophils Absolute Manual 21.98 K/mm3 (1.3-6.7); Neutrophils Percent Manual 67 % (46-73); Platelet Estimate Adequate (Adequate); Schistocytes None Seen (NORMAL); Total Cells Counted 100
[2023-05-22] MEDS: LACTATED RINGERS 1,000 ML 30 ML IV CONT ×3 (08:36→09:28)
[2023-05-22] MEDS: VANCOMYCIN 1,500 MG/NS 500 ML 1,500 MG/500 ML BAG 250 MG IVPB ×2 (08:43→20:29)
--- NOTE | 2023-05-22 08:52 | W.PM.PROC2 ---
Procedure Note - Detailed Date of Procedure 05/22/23 Pre-op Diagnosis Abdominal Abscess Post-op Diagnosis Other (Complex abdominal abscess and fascial dehiscence.) Procedure Performed Complex incision and drainage of abdominal abscess was placement of wound VAC. Surgeon Chris Shelby MD Scientific Recruiter Aquiles Cohen, PAPER CLEANER Anesthesia General Indications Patient is a year-old gentleman who about 6 weeks ago underwent a sigmoid colon resection due to perforation and ischemia from a strangulated left inguinal hernia. He was doing fairly well at home until about a week ago when he started having worsening abdominal pain. Has been having loose bowel movements but has had poor appetite. Yesterday afternoon he presented to the emergency with a complaint of worsening abdominal pain and was found have a large abdominal wall abscess with a smaller intra-abdominal abscess near the stapled anastomosis sigmoid [place]. [place] [address]. He appears to be septic presents now for an emergent incision and drainage of the abdominal abscess. Findings Patient a large [id number] abdominal abscess in the central abdomen just in the periumbilical region. The fashion the area was dehisced with separation of the edges of the fascia and the underlying omentum appeared to be exposed. There did not appear to be any evisceration of bowel. There also was extension of abscess cavity inferiorly towards the pelvis with a tunnel measuring about 6cm. Grossly purulent and feculent smelling material and fluid was in the abscess cavity. [id number] of pus drained. Culture was obtained and sent to microbiology. Description of Procedure After informed consent was obtained patient brought to the operating room was placed supine position and general LMA anesthesia was administered. The abdomen was then prepped and draped usual sterile fashion. A time-out was performed and the procedure was performed and verified that he was on scheduled IV antibiotics. I then started by making an incision through the old midline scar noted on the most fluctuant area of the abscess. Immediately upon opening the skin there was air released very foul smelling fluid in the abscess cavity consisting of pus and feculent appearing fluid. I broke down loculations with my fingers and aspirated as much of the fluid as I could. I obtained a culture sent to microbiology. The abscess cavity extended inferiorly and I found that the fascia ability underneath the umbilicus with underlying omentum exposed but no evisceration of bowel. There was a tunnel that extended inferiorly towards the pelvis about 6cm in length. The abscess cavity itself measured 10cm in length by 8cm width by 6cm in depth. I did not debride any necrotic tissue and I made sure there were no other tunnels in the subcutaneous tissues. I then irrigated out the abscess cavity with 2L of sterile saline solution. I then proceeded to place a wound VAC consisting of white foam sponge in the tunnel and placing it on top of the omentum. The remaining portion of the wound in the subcutaneous tissue was then filled with black foam sponge. The adhesive dressing was then placed on top of the wound and a hole was cut to place the suction pad. Additional piece of dressings were placed around to make sure there was no air leak. The wound VAC was then placed to 125 mm of mercury continuous suction. There was no air leak. The patient tolerated the procedure well no complications. All sponges, needles, and instrument counts were correct at the end procedure. EBL was _20__cc. The patient was awakened and taken to recovery in stable and satisfactory condition. Implants Wound VAC with white sponge on omentum and in tunnel covered with black sponge. Wound VAC place was [id number] for a total of 120 sq cm. Estimated Blood Loss 20 Urine Output 300 Drains No Packing Yes (Wound VAC in open wound measuring [id number]) Pathology Other (Cu
--- NOTE | 2023-05-22 08:53 | SUR.PHASEI ---
Dr. Coronado at bedside. BP soft. Orders received to treat low blood pressure if MAP less than 50.
[2023-05-22 09:58] LABS: Hemoglobin A1C 5.6 % (<5.7)
[2023-05-22] MEDS: ALBUMIN HUMAN 25% 25 GM/100 ML 100 ML IVPB ×4 (10:13→23:39)
[2023-05-22] MEDS: SODIUM BICARBONATE 8.4% 50 MEQ/50 ML SYRINGE IV PUSH (10:13)
[2023-05-22] MEDS: SODIUM CHLORIDE 0.9% IV 1,000 ML 125 ML IV CONT ×3 (10:14→20:29)
--- NOTE | 2023-05-22 10:15 | PC.NURSE ---
Report received from LEONARDO Resendez.
--- NOTE | 2023-05-22 10:27 | PC.NURSE ---
RN was unable to complete physical assessment as patient was taken to surgery by slot shift supervisor. Patient was then transferred to ICU from PACU.
--- NOTE | 2023-05-22 10:30 | PC.NURSE ---
Patient arrived via bed from PACU without issue, patient transferred to ICU bed, assessment completed, vital signs taken.
[2023-05-22] MEDS: SODIUM CHLORIDE 0.9% IV 1,000 ML 999 ML IV CONT (10:57)
--- NOTE | 2023-05-22 11:00 | PC.NURSE ---
Dr. Cortes to bedside. Stat CT-Head ordered for possible left sided facial droop. 1L bolus initiated.
--- NOTE | 2023-05-22 11:01 | WPDCNINT ---
Assessment and Plan Assessment and plan (1) Sepsis: Qualifiers: Sepsis type: sepsis due to unspecified organism Sepsis acute organ dysfunction status: unspecified Qualified Code(s): A41.9 - Sepsis, unspecified organism Code(s): A41.9 - Sepsis, unspecified organism Status: Acute Assessment and Plan: Sepsis, likely related to abdominal wall abscess and pelvic abscess -on admission patient's lactic acid was 4.9, adequately fluid-resuscitated, repeat lactic acid this morning was 1.7 -blood pressures have been stable -will give additional IV fluid bolus -continue albumin for volume expansion -05/21: Blood cultures have been obtained and pending -05/21: Urine cultures obtained and pending -05/22: Abdominal abscess cultures have been obtained and pending 05/21:Patient was started on Zosyn, vancomycin and Flagyl, will discontinue Flagyl as she already has Zosyn for anaerobic coverage (2) Abdominal wall abscess: Code(s): L02.211 - Cutaneous abscess of abdominal wall Status: Acute Assessment and Plan: Abdominal abscess and fascial dehiscence : Status post complex incision and drainage of abdominal abscess with with placement of wound VAC on 05/22/[address]. -surgery following the patient -continue antibiotics as above -cultures obtained and pending pending (3) Nicotine dependence with current use: Code(s): F17.200 - Nicotine dependence, unspecified, uncomplicated Status: Acute Assessment and Plan: Consult patient on smoking cessation (4) Essential (primary) hypertension: Code(s): I10 - Essential (primary) hypertension Status: Chronic Assessment and Plan: Patient has a history of essential hypertension, on lisinopril at home, will hold all antihypertensives as patient's blood pressures are borderline (5) Facial droop: Code(s): R29.810 - Facial weakness Status: Acute Assessment and Plan: Left facial droop, patient is awake, alert, oriented x3, moving all extremities, strength 5/5 in all extremities and sensations are intact 05/22:CT brain has been ordered Plan DVT prophylaxis: Lovenox Stress ulcer prophylaxis: Not indicated Nutrition: Clear liquid diet Code Status: Full code Critical Care Time Spent: 51 minutes Due to a high probability of clinically significant, life threatening deterioration, the patient required my highest level of preparedness to intervene emergently and I personally spent this critical care time directly and personally managing the patient. This critical care time included obtaining a history; examining the patient; pulse oximetry; ordering and review of studies; arranging urgent treatment with development of a management plan; evaluation of patient's response to treatment; frequent reassessment; and discussions with other providers. It was exclusive of separately billable procedures and treating other patients and teaching time. Please see Assessment and Plan section and the rest of the note for further information on patient assessment and treatment This dictation may have been done utilizing a voice recognition system. Attempts have been made to correct errors. However, there may be uncorrected grammatical, spelling, and recognitions errors present. Cosmetology Teacher Consult Note Consult date: 05/22/23 Reason for consult: Abdominal abscess and fascial dehiscence status post complex incision and drainage of abdominal abscess with with placement of wound VAC on 05/22/2023 HPI: Truman Miranda is a 72 year old male anxiety, dyslipidemia, essential hypertension, gout, prediabetes, vitamin-D deficiency, incidental lung nodule, incarcerated left inguinal hernia status post reduction of the strangulated left inguinal hernia with partial sigmoid colon resection with primary anastomosis on 04/12/2023, Presented the ED on 05/21/2023 with complains of generalized weakness, abdominal pain, poor appetite. Denies any fever
--- NOTE | 2023-05-22 13:57 | P.PCNBED_ITS ---
Procedures Central Line Placement Right Femoral: Central Line Date: 05/22/23 Central Line Time: 13:58 Discussed w/ the patient/family/POA,the placement of a central venous catheter, including its clinical necessity/indication & associated potential risks, benifits and alternatives.: Yes The patient/family/POA understand(s) and acknowledge(s) the need to proceed with central venous catheter insertion as an important element of the patient's clinical management.: Yes Consent: I have discussed with the patient and/or surrogate, the non-emergent placement of a central venous catheter, including its clinical necessity/indication and associated potential risks and complications. The patient and/or surrogate understand(s) and acknowledge(s) the need to proceed with central venous catheter insertion as an important element of the patient's clinical management. Time Out Performed: Yes Patient Position: supine Patient placed on monitor/pulse ox: Yes Provider Prep: mask, sterile gown, sterile gloves, Max. sterile barrier precautions, cap and hand hygiene with conventional soap/water or alcohol based hand rub Central line prep: 2% Chlorhexidine scrub Local anesthesia used: lidocaine 1% Amount of anesthesia used (ml): 4 Sterile US Technique with sterile gel/sterile probe covers: Yes Central line lumen inserted: triple Vincentian: 12 Length (cm): 20 Depth of Insertion (cm): 20 Post Procedure: sutured in place, good blood return, all ports aspirated, flushed, capped, transparent dressing, hemostatic product, antimicrobial product, securement product and aseptic technique maintained throughout procedure Patient tolerated procedure: well Complications: none
[2023-05-22] MEDS: NOREPINEPHRINE 8 MG/D5W 250 ML 8 MG/250 ML BAG 9.38 MG IV CONT (14:15)
--- NOTE | 2023-05-22 18:06 | PM.IMPN ---
Progress Note: A&P Assessment and Plan (1) Sepsis: Qualifiers: Sepsis type: sepsis due to unspecified organism Sepsis acute organ dysfunction status: unspecified Qualified Code(s): A41.9 - Sepsis, unspecified organism Code(s): A41.9 - Sepsis, unspecified organism Status: Acute (2) Abdominal wall abscess: Code(s): L02.211 - Cutaneous abscess of abdominal wall Status: Acute (3) Cellulitis: Code(s): L03.90 - Cellulitis, unspecified Status: Acute (4) Abscess of male pelvis: Code(s): K65.1 - Peritoneal abscess Status: Acute (5) Dyslipidemia: Code(s): E78.5 - Hyperlipidemia, unspecified Status: Chronic (6) Depression: Qualifiers: Depression Type: unspecified Qualified Code(s): F32.9 - Major depressive disorder, single episode, unspecified Code(s): F32.9 - Major depressive disorder, single episode, unspecified Status: Acute (7) Anxiety: Code(s): F41.9 - Anxiety disorder, unspecified Status: Acute (8) Vitamin D deficiency: Code(s): E55.9 - Vitamin D deficiency, unspecified Status: Acute (9) Nicotine dependence with current use: Code(s): F17.200 - Nicotine dependence, unspecified, uncomplicated Status: Acute (10) Gout: Code(s): M10.9 - Gout, unspecified Status: Acute (11) Postoperative hypotension: Code(s): I95.81 - Postprocedural hypotension Status: Acute Plan Continue with critical care monitoring in ICU Continue with aggressive IV antibiotics in the form of IV Zosyn, Flagyl and vancomycin Patient tolerated surgery well earlier today Continue with the postop surgical follow-up by General surgery Postop pain management as per General surgery and test kitchen home economist Patient given aggressive IV hydration to maintain blood pressure Patient started on IV norepinephrine for blood pressure control Leukocytosis is slowly downtrending from 28.7 yesterday to 23.9 today Strict input and output monitoring Monitor vital signs and blood pressure very closely ? Patient seen and examined at bedside during my morning rounds ? Collaborated with patient's nurse at the bedside in detail and addressed all concerns ? Labs, electrolytes, radiology, investigations and test results reviewed ? Consult/Nursing/Ancilliary notes on the chart reviewed and appreciated ? Spoke with patient/family at the bedside and answered all the questions that they had Repeat labs in a.m. Electrolyte replacement as per protocol. Patient will be monitored very closely on the ICU floor. Further recommendations as per the hospital course. Close management by test kitchen home economist and General surgery. Subjective Date/time seen: 05/22/23 18:06 Interval history: Patient underwent today for complex I and D of abdominal abscess and wound VAC placement. Postop he developed hypotension, was started on aggressive IV hydration and transferred to ICU. I saw the patient and evaluated at bedside in ICU. He is feeling fatigued. Abdominal pain has improved. Review of Systems Review of Systems: 14 systems were reviewed with pertinent positives and negatives per HPI. Except as documented in the HPI/progress notes, all other systems were reviewed and are negative. All systems reviewed & are unremarkable except as noted in HPI and below Exam Narrative: PHYSICAL EXAMINATION: Vital signs: Please see the chart General physical exam: Patient lying in bed in ICU, pleasant and cooperative with exam, immediately postop, feels weak and tired Head/eyes: Atraumatic, EOMI, PERRLA ENT: Moist mucous membranes, nasal passages clear Neck: Supple, full range of motion, trachea midline CVS: S1 + S2, regular rate and rhythm, no murmurs Respiratory: Bilaterally fair air entry in both lung hodges, mild B/L crackles, symmetric chest expansion, no distress Abdomen: Soft, ++ postop bandages in place, bowel sounds absent, no organomegaly
[2023-05-22] MEDS: CENTRAL LINE FLUSH 10 ML IV PUSH (20:30)
[2023-05-22] MEDS: MORPHINE SULFATE (*CRX) 2 MG/ML INJ IV PUSH (21:04)
[2023-05-22] MEDS: ALBUTEROL SULFATE (*SP) AEROSOL 1 PUFF INHALATION (21:14)
[2023-05-23] VITALS (18 sets, daily range): BP systolic 98–147; BP diastolic 56–76; PULSE 79–108; RESP 18–31; TEMP 35.9–37; O2SAT 93–98
[2023-05-23] MEDS: MORPHINE SULFATE (*CRX) 2 MG/ML INJ IV PUSH (00:02)
[2023-05-23] MEDS: ALBUMIN HUMAN 25% 25 GM/100 ML 100 ML IVPB ×2 (05:38→11:26)
[2023-05-23] MEDS: CENTRAL LINE FLUSH 10 ML IV PUSH ×2 (05:39→13:55)
[2023-05-23] MEDS: PIPERACILLN/TAZ 3.375GM/NS50ML 3.375 GM/50 ML BAG IVPB ×3 (05:39→17:04)
[2023-05-23 06:21] LABS: Hematocrit 30.8 % (42.0-52.0); Hemoglobin 9.9 g/dL (14.0-18.0); Mean Corpuscular HGB Conc 32.1 g/dl (32-36); Mean Corpuscular Hemoglobin 32.9 pg (26-34); Mean Corpuscular Volume 102.3 fl (80-100); Mean Platelet Volume 9.8 fl (7.4-10.4); Platelet Count Result 266 k/mm3 (150-375); Red Blood Count 3.01 M/mm3 (4.6-6.20); Red Cell Distribution Width 13.2 % (11.5-14.5); White Blood Count 14.3 K/mm3 (4.5-10.0)
[2023-05-23 06:27] LABS: Lactic Acid Reflex 1.4 mmol/L (0.7-2.0)
[2023-05-23 06:37] LABS: Alanine Aminotransferase 22 U/L (6-50); Albumin Level 2.8 g/dL (3.5-5.1); Alkaline Phosphatase 68 U/L (38-126); Anion Gap 11 mmol/L (8-16); Aspartate Amino Transferase 28 U/L (17-59); Bilirubin,Total 0.9 mg/dL (0.2-1.3); Blood Urea Nitrogen 6 mg/dL (9-20); Calcium 8.3 mg/dL (8.4-10.2); Carbon Dioxide 20 mmol/L (22-30); Chloride 105 mmol/L (98-107); Estimated CRCL calculation 129 ml/min; Estimated Glomerular Filt Rate > 60; Glucose 94 mg/dL (65-110); Magnesium 1.9 mg/dL (1.6-2.3); Sodium 136 mmol/L (137-145)
[2023-05-23] MEDS: SODIUM CHLORIDE 0.9% IV 1,000 ML 125 ML IV CONT (06:54)
[2023-05-23 06:58] LABS: Vancomycin Trough 12.5 ug/mL (10.0-20.0)
[2023-05-23] MEDS: VANCOMYCIN 1,750 MG/NS 500 ML 1,750 MG/500 ML BAG 250 MG IVPB ×2 (07:40→18:45)
[2023-05-23 07:42] LABS: Band Neutrophils Percent 15 % (0-6); Basophils Absolute Manual 0.14 K/mm3 (0.0-0.1); Basophils Percent Manual 1 % (0-1); Eosinophils Absolute Manual 0.14 K/mm3 (0.02-0.5); Eosinophils Percent Manual 1 % (0-4); Lymphocytes Absolute Manual 0.57 K/mm3 (1.1-4.5); Monocytes Absolute Manual 0.57 K/mm3 (0.1-0.90); Monocytes Percent Manual 4 % (3-9); Neutrophils Absolute Manual 12.87 K/mm3 (1.3-6.7); Neutrophils Percent Manual 75 % (46-73); Platelet Estimate Adequate (Adequate); Total Cells Counted 100
[2023-05-23 07:43] LABS: Hypochromasia 1+ (NORMAL); Schistocytes None Seen (NORMAL)
[2023-05-23] MEDS: KCL 40 MEQ/WATER 100 ML 100 ML 25 ML IVPB (08:47)
[2023-05-23] MEDS: POTASSIUM CHLORIDE 20 MEQ ER TABLET 40 MEQ PO (08:47)
[2023-05-23] MEDS: ENOXAPARIN 40 MG/0.4 ML SYRINGE SUB-Q (08:47)
[2023-05-23] MEDS: MAGNESIUM SULF 2 GM/WATER 50ML 2 GM/50 ML BAG IVPB (08:51)
--- NOTE | 2023-05-23 10:42 | WPDINTPN ---
Progress Note: A&P Assessment and Plan (1) Sepsis: Qualifiers: Sepsis type: sepsis due to unspecified organism Sepsis acute organ dysfunction status: unspecified Qualified Code(s): A41.9 - Sepsis, unspecified organism Code(s): A41.9 - Sepsis, unspecified organism Status: Acute Assessment and Plan: Sepsis, likely related to abdominal wall abscess and pelvic abscess -on admission patient's lactic acid was 4.9, adequately fluid-resuscitated, repeat lactic acid this morning was 1.7 -blood pressures have been stable -will give additional IV fluid bolus -continue albumin for volume expansion -05/21: Blood cultures have been obtained and pending -05/21: Urine cultures no growth -05/22: Abdominal abscess cultures have been obtained and pending 05/21:Patient was started on Zosyn, vancomycin and Flagyl, will discontinue Flagyl as she already has Zosyn for anaerobic coverage (2) Abdominal wall abscess: Code(s): L02.211 - Cutaneous abscess of abdominal wall Status: Acute Assessment and Plan: Abdominal abscess and fascial dehiscence : Status post complex incision and drainage of abdominal abscess with with placement of wound VAC on 05/22/[address]. -surgery following the patient -continue antibiotics as above -cultures obtained and pending pending (3) Nicotine dependence with current use: Code(s): F17.200 - Nicotine dependence, unspecified, uncomplicated Status: Acute Assessment and Plan: Consult patient on smoking cessation (4) Essential (primary) hypertension: Code(s): I10 - Essential (primary) hypertension Status: Chronic Assessment and Plan: Patient has a history of essential hypertension, on lisinopril at home, will hold all antihypertensives as patient is came off Levophed last night (5) Facial droop: Code(s): R29.810 - Facial weakness Status: Acute Assessment and Plan: Left facial droop, patient is awake, alert, oriented x3, moving all extremities, strength 5/5 in all extremities and sensations are intact 05/22:CT brain has been ordered Improved Plan DVT prophylaxis: Lovenox Stress ulcer prophylaxis: Not indicated Nutrition: Clear liquid diet Code Status: Full code Critical Care Time Spent: 31 minutes Patient may transfer out of the ICU Due to a high probability of clinically significant, life threatening deterioration, the patient required my highest level of preparedness to intervene emergently and I personally spent this critical care time directly and personally managing the patient. This critical care time included obtaining a history; examining the patient; pulse oximetry; ordering and review of studies; arranging urgent treatment with development of a management plan; evaluation of patient's response to treatment; frequent reassessment; and discussions with other providers. It was exclusive of separately billable procedures and treating other patients and teaching time. Please see Assessment and Plan section and the rest of the note for further information on patient assessment and treatment This dictation may have been done utilizing a voice recognition system. Attempts have been made to correct errors. However, there may be uncorrected grammatical, spelling, and recognitions errors present. Subjective Date/time seen: 05/23/23 10:42 Interval history: Reason for consult: Abdominal abscess and fascial dehiscence status post complex incision and drainage of abdominal abscess with with placement of wound VAC on 05/22/2023, septic shock requiring Levophed 05/23/2023: Patient seen and examined in the ICU, remains awake, alert, oriented, nonfocal. Patient is off Levophed, hemodynamically stable, adequate urine output, denies any chest pain, shortness on breath, abdominal pain, nausea, vomiting. Maintenance IV fluids have been discontinued, afebrile. White count trending down. Hypokalemia Review of Systems
--- NOTE | 2023-05-23 11:16 | WPDPN ---
Progress Note: A&P Assessment and Plan (1) Postoperative hypotension: Code(s): I95.81 - Postprocedural hypotension Status: Acute Assessment and Plan: Resolved. No longer on Levophed. (2) Sepsis: Qualifiers: Sepsis type: sepsis due to unspecified organism Sepsis acute organ dysfunction status: unspecified Qualified Code(s): A41.9 - Sepsis, unspecified organism Code(s): A41.9 - Sepsis, unspecified organism Status: Acute Assessment and Plan: Abdominal abscess has been drained and VAC is in place. White blood cell count is decreased from 24,000 to 14,000. He remains afebrile. Continue with vancomycin, Zosyn, and Flagyl. Patient can be transferred from the intensive care unit to the floor from surgery standpoint. (3) Abdominal wall abscess: Code(s): L02.211 - Cutaneous abscess of abdominal wall Status: Acute Assessment and Plan: Abscesses and drain. Wound VAC remains in place. Applied and wound VAC change Wednesday. Subjective Date/time seen: 05/23/23 11:16 Interval history: Patient is doing better today. For a few hours yesterday he needed to be placed on IV pressors. Today's blood pressure is better his questions have been weaned off. He tolerated clear liquids at difficulty. Mild pain at the abscess site. The wound VAC has been working well. Output from the wound VAC is old bloody drainage. Denies any bowel movements or flatus. White blood cell count is decreased in 24,000 down to 14,000. No fever. Remains on broad-spectrum IV antibiotics. Exam GI: Other: Abdomen is soft and nondistended. Wound VAC in place in central abdominal abscess cavity. The right lateral abdominal wall redness is decreased but still present. Objective Data Vital Signs Vital Signs: Vital Signs - 24 hr 05/22/23 14:15 05/22/23 12:00 05/22/23 12:00 Temperature 36.7 C Pulse Rate 94 98 Respiratory Rate 21 H Blood Pressure 92/54 L 92/56 L Pulse Oximetry 100 100 Oxygen Delivery Room Air Oxygen Flow Rate 05/22/23 14:00 05/22/23 16:00 05/22/23 12:00 Temperature Pulse Rate 94 99 95 Respiratory Rate 25 H Blood Pressure 92/54 L Pulse Oximetry 94 Oxygen Delivery Oxygen Flow Rate 05/22/23 14:00 12/23/23 16:00 05/22/23 16:00 Temperature 36.7 C Pulse Rate 94 96 Respiratory Rate 26 H Blood Pressure 102/54 L Pulse Oximetry 100 100 Oxygen Delivery Room Air Oxygen Flow Rate 05/22/23 18:00 05/22/23 18:00 05/22/23 20:00 Temperature Pulse Rate 101 H 101 H 104 H Respiratory Rate 26 H Blood Pressure 101/50 L Pulse Oximetry 97 Oxygen Delivery Oxygen Flow Rate 05/22/23 20:00 05/22/23 21:00 05/22/23 20:00 Temperature 36.9 C Pulse Rate 101 H 128 H 101 H Respiratory Rate 30 H 32 H Blood Pressure 109/62 141/72 H 109/62 Pulse Oximetry 95 94 Oxygen Delivery Oxygen Flow Rate 05/22/23 21:00 05/22/23 20:00 05/22/23 21:00 Temperature Pulse Rate 128 H Respiratory Rate Blood Pressure 141/72 H Pulse Oximetry 95 90 Oxygen Delivery Room Air Nasal Cannula Oxygen Flow Rate 2 05/22/23 22:00 05/22/23 22:00 05/22/23 23:00 Temperature Pulse Rate 115 H 115 H 108 H Respiratory Rate 24 H Blood Pressure 123/61 135/66 Pulse Oximetry 96 Oxygen Delivery Oxygen Flow Rate 05/23/23 00:00 05/23/23 00:00 05/23/23 00:00 Temperature 37.0 C Pulse Rate 104 H 108 H Respiratory Rate 28 H Blood Pressure 147/76 H Pulse Oximetry 96 96 Oxygen Delivery Nasal Cannula Oxygen Flow Rate 2 05/23/23 00:00 05/23/23 01:00 05/23/23 02:00 Temperature Pulse Rate 108 H 102 H 98 Respiratory Rate 22 H Blood Pressure 147/76 H 111/63 Pulse Oximetry 94 Oxygen Delivery Oxygen Flow Rate 05/23/23 02:00 05/23/23 03:15 05/23/23 04:00 Temperature Pulse Rate 98 85 81 Respiratory Rate 21 H 24 H Blood Pressure 102/62 99/60 L Pulse Oximetry
[2023-05-23] MEDS: oxyCODONE HCL (*CRX) 5 MG TAB IR PO ×2 (11:25→17:03)
--- NOTE | 2023-05-23 12:30 | PC.NURSE ---
This patient, Truman Miranda, was transferred to [facility] on 05/23/23 at 1230. Personal belongings sent with patient. Report given to Trina Trotter RN. Appropriate documentation sent with patient.
--- NOTE | 2023-05-23 13:00 | PCPTNOTE ---
Attempted PT evaluation, pt has a femoral line present at this time. Will see pt once femoral line has been discontinued. Will follow.
--- NOTE | 2023-05-23 13:26 | PCOTNOTE ---
Attempted OT evaluation, pt has a femoral line present at this time. Will see pt once femoral line has been discontinued. Will follow.
[2023-05-23] MEDS: IBUPROFEN IV 800 MG/200 ML 800 MG/200 ML BAG 400 MG IVPB (13:45)
--- NOTE | 2023-05-23 14:06 | P.PNAN_ITS ---
Anes - Prog Note Post-Op Date/Time: 05/23/23 14:06 Cardiovascular status: normal Respiratory status: normal Airway patency: baseline Mental status: baseline Post-Op hydration status: normal Vital Signs: Last Vital Signs Temp 98.3 F 05/23/23 12:00 Pulse 98 05/23/23 12:00 Resp 25 H 05/23/23 12:00 BP 128/70 05/23/23 12:00 Pulse Ox 98 05/23/23 12:00 O2 Del Method Nasal Cannula 05/23/23 12:00 O2 Flow Rate 2 05/23/23 12:00 Pain Score (VAS): 2 I/O: Intake & Output 05/22/23 05/23/23 05/23/23 23:59 07:59 15:59 Intake Total 2140 1300 1410 Output Total 650 750 600 Balance 1490 550 810 Laboratory Tests 05/23/23 05:58 05/23/23 05:58 05/23/23 05:58 WBC 14.3 H RBC 3.01 L Hgb 9.9 L Hct 30.8 L MCV 102.3 H MCH 32.9 MCHC 32.1 RDW 13.2 Plt Count 266 MPV 9.8 Immature Gran % (Auto) Not Reportable Neut % (Auto) Not Reportable Lymph % (Auto) Not Reportable [place] % (Auto) Not Reportable Eos % (Auto) Not Reportable Baso % (Auto) Not Reportable Lymph # (Auto) Not Reportable [place] # (Auto) Not Reportable Eos # (Auto) Not Reportable Baso # (Auto) Not Reportable Abs Immat Gran (auto) Not Reportable Absolute Neuts (auto) Not Reportable Absolute Nucleated RBC Not Reportable Total Counted 100 Neutrophils % (Manual) 75 H Band Neutrophils % 15 H Lymphocytes % (Manual) 4.0 L Monocytes % (Manual) 4 Eosinophils % (Manual) 1 Basophils % (Manual) 1 Nucleated RBC % Not Reportable Abs Neuts (Manual) 12.87 H Abs Lymphs (Manual) 0.57 L Abs Monocytes (Manual) 0.57 Absolute Eos (Manual) 0.14 Abs Basophils (Manual) 0.14 H Platelet Estimate Adequate Hypochromasia 1+ Schistocytes None seen Sodium 136 L Potassium 3.0 L Chloride 105 Carbon Dioxide 20 L Anion Gap 11 BUN 6 L D Creatinine 0.50 L Estim Creat Clear Calc 129 Estimated GFR > 60 Glucose 94 Lactic Acid 1.4 Calcium 8.3 L Phosphorus 2.0 L Magnesium 1.9 Total Bilirubin 0.9 AST 28 ALT 22 Alkaline Phosphatase 68 Total Protein 6.0 L Albumin 2.8 L Vancomycin Trough 12.5 Microbiology 05/22/23 08:10 Abscess Anaerobic Culture - Preliminary 05/21/23 21:55 Unspecified Urine Culture - Final Post-procedural complaints: none Patient Feedback: Patient satisfied with anesthetic care.
[2023-05-23] MEDS: ACETAMINOPHEN 500 MG TABLET 1000 MG PO (17:03)
[2023-05-24] VITALS (17 sets, daily range): BP systolic 96–116; BP diastolic 51–66; PULSE 83–102; RESP 18–24; TEMP 36.2–36.5; O2SAT 94–100
[2023-05-24] MEDS: CENTRAL LINE FLUSH 10 ML IV PUSH ×3 (00:01→14:20)
[2023-05-24] MEDS: oxyCODONE HCL (*CRX) 5 MG TAB IR PO ×2 (03:05→17:41)
[2023-05-24] MEDS: PIPERACILLN/TAZ 3.375GM/NS50ML 3.375 GM/50 ML BAG IVPB ×4 (05:33→17:37)
[2023-05-24 06:10] LABS: Hematocrit 29.5 % (42.0-52.0); Hemoglobin 9.6 g/dL (14.0-18.0); Mean Corpuscular HGB Conc 32.5 g/dl (32-36); Mean Corpuscular Volume 101.4 fl (80-100); Mean Platelet Volume 9.9 fl (7.4-10.4); Platelet Count Result 254 k/mm3 (150-375); Red Blood Count 2.91 M/mm3 (4.6-6.20); Red Cell Distribution Width 13.5 % (11.5-14.5); White Blood Count 17.7 K/mm3 (4.5-10.0)
[2023-05-24 06:12] LABS: Alanine Aminotransferase 21 U/L (6-50); Albumin Level 2.4 g/dL (3.5-5.1); Alkaline Phosphatase 84 U/L (38-126); Anion Gap 6 mmol/L (8-16); Aspartate Amino Transferase 29 U/L (17-59); Bilirubin,Total 1.1 mg/dL (0.2-1.3); Blood Urea Nitrogen 9 mg/dL (9-20); Calcium 8.3 mg/dL (8.4-10.2); Carbon Dioxide 20 mmol/L (22-30); Chloride 108 mmol/L (98-107); Estimated CRCL calculation 67 ml/min; Estimated Glomerular Filt Rate > 60; Glucose 96 mg/dL (65-110); Lactic Acid Reflex 1.7 mmol/L (0.7-2.0); Magnesium 2.1 mg/dL (1.6-2.3); Phosphorus 1.7 mg/dL (2.5-4.5); Potassium 3.5 mmol/L (3.4-5.0); Sodium 134 mmol/L (137-145)
[2023-05-24] MEDS: VANCOMYCIN 1,750 MG/NS 500 ML 1,750 MG/500 ML BAG 250 MG IVPB (06:17)
--- NOTE | 2023-05-24 08:25 | PCOTNOTE ---
Attempted OT eval, patient still has femoral line at 8:25. Will complete eval once removed. Will follow.
--- NOTE | 2023-05-24 08:32 | PCPTNOTE ---
Patient still has femoral line in at 831 05/24/23. Nursing is hoping to have it out tomorrow. Hold evaluation.
[2023-05-24] MEDS: ENOXAPARIN 40 MG/0.4 ML SYRINGE SUB-Q (08:33)
[2023-05-24 09:45] LABS: Band Neutrophils Percent 30 % (0-6); Hypochromasia 1+ (NORMAL); Monocytes Absolute Manual 0.17 K/mm3 (0.1-0.90); Monocytes Percent Manual 1 % (3-9); Neutrophils Absolute Manual 16.81 K/mm3 (1.3-6.7); Neutrophils Percent Manual 65 % (46-73); Platelet Estimate Adequate (Adequate); Schistocytes None Seen (NORMAL); Total Cells Counted 100
--- NOTE | 2023-05-24 12:24 | WPDPN ---
Progress Note: A&P Assessment and Plan (1) Abdominal wall abscess: Code(s): L02.211 - Cutaneous abscess of abdominal wall Status: Acute Assessment and Plan: Abscess was incised and drained. Vac is in place. Given the output from the wound VAC he certainly could have a enterocutaneous fistula. Continue wound VAC. continue IV antibiotics. Will add some Flagyl to the IV antibiotic regimen. (2) Abscess of male pelvis: Code(s): K65.1 - Peritoneal abscess Status: Acute Assessment and Plan: White blood count increased from 14,000 t0 17,000. Will repeat CT scan abdomen pelvis with IV contrast to evaluate for development of a larger abscess in the pelvis. We will also try to give some rectal contrast to see if there is leaking from the anastomosis or other part of the colon causing colocutaneous fistula. Continue for management. For now try to encourage diet will add some Ensure to his trays. I did discuss with him and his family that if his nutrition does not improve with her p.o. intake that he might need to be placed on TPN with a PICC line placed. Subjective Date/time seen: 05/24/23 12:24 Interval history: Patient is stable. Does have much of an appetite. Has been taking some clear liquids. No bowel movements or passing of flatus yet. White blood [place] 14,000 [place] [address] but no fever. Continues on IV antibiotics to include vancomycin and Zosyn. Wound VAC is in place. Exam Const: General: comfortable and no acute distress Resp: Effort & Inspection: normal respiratory effort Auscultation: clear to auscultation bilaterally GI: Other: And some often mildly distended. Wound VAC in place, output from the wound VAC seems to be thin feculent smelling fluid. Redness around has decreased. Extrem: General: normal to inspection Psych: Mental Status: mental status grossly normal Affect: Sad affect present Objective Data Vital Signs Vital Signs: Vital Signs - 24 hr 05/23/23 14:00 05/23/23 17:10 05/23/23 16:00 Temperature 35.9 C L Pulse Rate 101 H 101 H 91 Respiratory Rate 20 Blood Pressure 114/66 Pulse Oximetry 96 Oxygen Delivery Oxygen Flow Rate Fraction of Inspired Oxygen 05/23/23 16:00 05/23/23 18:00 05/23/23 20:29 Temperature 36.2 C L Pulse Rate 89 85 Respiratory Rate 20 Blood Pressure 98/56 L Pulse Oximetry 96 97 Oxygen Delivery Nasal Cannula Oxygen Flow Rate 2 Fraction of Inspired Oxygen 05/23/23 20:00 05/23/23 22:00 05/23/23 22:56 Temperature 36.6 C Pulse Rate 87 84 79 Respiratory Rate 18 Blood Pressure 100/60 Pulse Oximetry 98 Oxygen Delivery Oxygen Flow Rate Fraction of Inspired Oxygen 05/24/23 00:00 05/24/23 02:00 05/24/23 04:05 Temperature 36.2 C L Pulse Rate 97 97 97 Respiratory Rate 18 Blood Pressure 116/62 Pulse Oximetry 96 Oxygen Delivery Oxygen Flow Rate Fraction of Inspired Oxygen 05/24/23 04:00 05/24/23 06:00 05/24/23 08:00 Temperature 36.2 C L Pulse Rate 98 95 83 Respiratory Rate 24 H Blood Pressure 109/66 Pulse Oximetry 100 Oxygen Delivery Oxygen Flow Rate Fraction of Inspired Oxygen 05/24/23 10:37 Temperature Pulse Rate Respiratory Rate Blood Pressure Pulse Oximetry 95 Oxygen Delivery Room Air Oxygen Flow Rate Fraction of Inspired Oxygen 21 Intake/Output Intake/Output: Intake & Output 05/21/23 05/22/23 05/23/23 05/24/23 23:59 23:59 23:59 23:59 Intake Total 2070 7380 4240 1100 Output Total 300 1550 1750 1400 Balance 1770 5830 2490 -300 Meds/Results Medications: Active Medications Generic Name Dose Route Start Last Admin Trade Name Freq PRN Reason Stop Dose Admin Acetaminophen 1,000 mg 05/22/23 08:49 05/23/23 17:03 Acetaminophen 500 Mg Tablet PO 1,000 mg Q6H PRN Administration Mild Pain (1-3) or Fever Albuterol 1 puff 05/21/23 23:56 05/22/23 21:14 Albuterol S
[2023-05-24] MEDS: ACETAMINOPHEN 500 MG TABLET 1000 MG PO (12:36)
[2023-05-24] MEDS: POTASSIUM CHLORIDE 20 MEQ ER TABLET 40 MEQ PO (12:47)
[2023-05-24] MEDS: metroNIDAZOLE 500 MG/ISO 100ML 500 MG/100 ML BAG 100 MG IVPB ×2 (13:04→17:36)
[2023-05-24 13:45] LABS: Folic Acid 5.6 ng/mL (2.76->20)
[2023-05-24] MEDS: POTASSIUM PHOS,M-BASIC-D-BASIC 15 MMOL in SODIUM CHLORIDE 0.9% IV 250 ML 63.75 MMOL IVPB (14:19)
--- NOTE | 2023-05-24 18:20 | PM.IMPN ---
Progress Note: A&P Assessment and Plan (1) Sepsis: Qualifiers: Sepsis type: sepsis due to unspecified organism Sepsis acute organ dysfunction status: unspecified Qualified Code(s): A41.9 - Sepsis, unspecified organism Code(s): A41.9 - Sepsis, unspecified organism Status: Acute (2) Abdominal wall abscess: Code(s): L02.211 - Cutaneous abscess of abdominal wall Status: Acute (3) Cellulitis: Code(s): L03.90 - Cellulitis, unspecified Status: Acute (4) Abscess of male pelvis: Code(s): K65.1 - Peritoneal abscess Status: Acute (5) Dyslipidemia: Code(s): E78.5 - Hyperlipidemia, unspecified Status: Chronic (6) Depression: Qualifiers: Depression Type: unspecified Qualified Code(s): F32.9 - Major depressive disorder, single episode, unspecified Code(s): F32.9 - Major depressive disorder, single episode, unspecified Status: Acute (7) Anxiety: Code(s): F41.9 - Anxiety disorder, unspecified Status: Acute (8) Vitamin D deficiency: Code(s): E55.9 - Vitamin D deficiency, unspecified Status: Acute (9) Nicotine dependence with current use: Code(s): F17.200 - Nicotine dependence, unspecified, uncomplicated Status: Acute (10) Gout: Code(s): M10.9 - Gout, unspecified Status: Acute (11) Postoperative hypotension: Code(s): I95.81 - Postprocedural hypotension Status: Acute Plan Patient downgraded from ICU to the floor Continue with aggressive IV antibiotics in the form of IV Zosyn, and Vancomycin Patient status post complex incision and drainage in of abdominal abscess with placement of wound VAC on 05/22/2023 ... POD # 2 Patient tolerated surgery well, continue with the postop surgical follow-up by General surgery Patient pressure under better control after aggressive fluids and vasopressor management in ICU Leukocytosis is slowly downtrending from 28.7 on admission to 17.7 today Check vitamin B12 and folic acid levels for increased MCV Strict input and output monitoring Monitor vital signs and blood pressure very closely Patient started on full liquid diet with dietary supplements Wound VAC change in a.m. Follow-up closely with General surgery for further management ? Patient seen and examined at bedside during my morning rounds ? Collaborated with patient's nurse at the bedside in detail and addressed all concerns ? Labs, electrolytes, radiology, investigations and test results reviewed ? Consult/Nursing/Ancilliary notes on the chart reviewed and appreciated ? Spoke with patient/family at the bedside and answered all the questions that they had Repeat labs in a.m. Electrolyte replacement as per protocol. Patient will be monitored very closely on the ICU floor. Further recommendations as per the hospital course. Close management by sweat box attendant and General surgery. Subjective Date/time seen: 05/24/23 18:20 Interval history: Patient feeling better today. Downgraded from the ICU after blood pressure was stabilized. Wound VAC in place at the postop site draining well. Surgery advancing his diet. Review of Systems Review of Systems: 14 systems were reviewed with pertinent positives and negatives per HPI. Except as documented in the HPI/progress notes, all other systems were reviewed and are negative. All systems reviewed & are unremarkable except as noted in HPI and below Exam Narrative: PHYSICAL EXAMINATION: Vital signs: Please see the chart General physical exam: Patient lying in bed in ICU, pleasant and cooperative with exam, immediately postop, feels weak and tired Head/eyes: Atraumatic, EOMI, PERRLA ENT: Moist mucous membranes, nasal passages clear Neck: Supple, full range of motion, trachea midline CVS: S1 + S2, regular rate and rhythm, no murmurs Respiratory: Bilaterally fair air entry in both lung hodges, mild B/L crackles, symmetric chest expansion
[2023-05-24 18:56] LABS: Vancomycin Trough 31.8 ug/mL (10.0-20.0)
[2023-05-25] VITALS (20 sets, daily range): BP systolic 97–110; BP diastolic 50–70; PULSE 84–115; RESP 18–22; TEMP 36.4–37.5; O2SAT 95–100
[2023-05-25] MEDS: PIPERACILLN/TAZ 3.375GM/NS50ML 3.375 GM/50 ML BAG IVPB ×5 (00:05→23:35)
[2023-05-25] MEDS: CENTRAL LINE FLUSH 10 ML IV PUSH ×3 (00:05→14:23)
[2023-05-25] MEDS: metroNIDAZOLE 500 MG/ISO 100ML 500 MG/100 ML BAG 100 MG IVPB ×5 (00:09→23:34)
[2023-05-25] MEDS: oxyCODONE HCL (*CRX) 5 MG TAB IR PO ×4 (00:19→18:12)
[2023-05-25 05:24] LABS: Hematocrit 30.4 % (42.0-52.0); Hemoglobin 10.1 g/dL (14.0-18.0); Mean Corpuscular HGB Conc 33.2 g/dl (32-36); Mean Corpuscular Hemoglobin 33.3 pg (26-34); Mean Corpuscular Volume 100.3 fl (80-100); Mean Platelet Volume 9.9 fl (7.4-10.4); Platelet Count Result 275 k/mm3 (150-375); Red Blood Count 3.03 M/mm3 (4.6-6.20); Red Cell Distribution Width 13.8 % (11.5-14.5); White Blood Count 20.1 K/mm3 (4.5-10.0)
[2023-05-25 05:32] LABS: Alanine Aminotransferase 21 U/L (6-50); Albumin Level 2.4 g/dL (3.5-5.1); Alkaline Phosphatase 108 U/L (38-126); Anion Gap 7 mmol/L (8-16); Aspartate Amino Transferase 36 U/L (17-59); Bilirubin,Total 1.3 mg/dL (0.2-1.3); Blood Urea Nitrogen 16 mg/dL (9-20); Calcium 8.5 mg/dL (8.4-10.2); Carbon Dioxide 19 mmol/L (22-30); Chloride 109 mmol/L (98-107); Estimated CRCL calculation 33 ml/min; Estimated Glomerular Filt Rate 35; Glucose 101 mg/dL (65-110); Magnesium 2.2 mg/dL (1.6-2.3); Phosphorus 2.3 mg/dL (2.5-4.5); Potassium 4.4 mmol/L (3.4-5.0); Sodium 135 mmol/L (137-145)
[2023-05-25 05:59] LABS: Band Neutrophils Percent 9 % (0-6); Eosinophils Percent Manual 8 % (0-4); Monocytes Percent Manual 2 % (3-9); Neutrophils Absolute Manual 17.48 K/mm3 (1.3-6.7); Neutrophils Percent Manual 78 % (46-73); Platelet Estimate Adequate (Adequate); Total Cells Counted 100
[2023-05-25 06:00] LABS: Burr Cells 1+ (NORMAL); Schistocytes None Seen (NORMAL)
[2023-05-25 06:05] LABS: Vancomycin Trough 30.3 ug/mL (10.0-20.0)
--- NOTE | 2023-05-25 08:23 | PCPTNOTE ---
per RN, pt still has femoral line placed as of 08:23 05/25/23, PT hold at this time and will continue to follow as femoral line is removed
--- NOTE | 2023-05-25 09:42 | PCOTNOTE ---
Per RN pt still has femoral line placed, continue to hold. Will check back for update when able to see patient.
[2023-05-25] MEDS: SODIUM CHLORIDE 0.9% IV 1,000 ML 100 ML IV CONT ×2 (10:50→19:15)
--- NOTE | 2023-05-25 13:18 | PM.PNGS ---
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 Status: Acute Assessment and Plan: OR tomorrow for ex lap, washout, diversion Subjective Subjective Date/Time Seen: 05/25/23 13:18 Interval history: confused, no abd pain, still c poor appetite, draining feculent material from vac Review of Systems Review of Systems: All systems reviewed & are unremarkable except as noted in HPI and below Exam Const: General: confusion and ill appearing Resp: Auscultation: clear to auscultation bilaterally Cardio: Rate: tachycardic Rhythm: regular rhythm GI: Inspection: normal to inspection, distended and incision GI Palp: Yes abdominal tenderness, Yes Soft to palpation, Yes Tenderness to palpation present (GI), No Guarding due to palpation present (GI) and No Rigid due to palpation Other: vac - feculent drainage Objective Data Vital Signs Vital Signs: Vital Signs - 24 hr 05/24/23 16:00 05/24/23 14:00 05/24/23 16:30 Temperature 36.5 C Pulse Rate 102 H 91 100 Respiratory Rate 20 Blood Pressure 101/52 L Pulse Oximetry 94 Oxygen Delivery Fraction of Inspired Oxygen 05/24/23 18:00 05/24/23 20:29 05/24/23 20:00 Temperature 36.2 C L Pulse Rate 98 93 90 Respiratory Rate 20 Blood Pressure 98/51 L Pulse Oximetry 100 Oxygen Delivery Fraction of Inspired Oxygen 05/24/23 20:00 05/24/23 22:00 05/25/23 00:22 Temperature 36.5 C Pulse Rate 93 90 100 Respiratory Rate 20 20 Blood Pressure 99/70 L Pulse Oximetry 100 95 Oxygen Delivery Room Air Fraction of Inspired Oxygen 21 05/25/23 00:00 05/25/23 00:00 05/25/23 02:00 Temperature Pulse Rate 102 H 100 96 Respiratory Rate 20 Blood Pressure Pulse Oximetry 100 Oxygen Delivery Room Air Fraction of Inspired Oxygen 21 05/25/23 04:46 05/25/23 04:00 05/25/23 04:00 Temperature 36.4 C Pulse Rate 104 H 88 104 H Respiratory Rate 20 20 Blood Pressure 100/50 L Pulse Oximetry 96 96 Oxygen Delivery Room Air Fraction of Inspired Oxygen 21 05/25/23 06:00 05/25/23 07:28 05/25/23 12:16 Temperature 37.5 C 37.1 C Pulse Rate 99 99 102 H Respiratory Rate 22 H 18 Blood Pressure 97/54 L 105/58 L Pulse Oximetry 96 98 Oxygen Delivery Fraction of Inspired Oxygen Intake/Output Intake/Output: Intake & Output 05/22/23 05/23/23 05/24/23 05/25/23 23:59 23:59 23:59 23:59 Intake Total 7380 4240 2350 770 Output Total 1550 1750 2325 600 Balance 5830 2490 25 170 Meds/Results Medications: Active Medications Generic Name Dose Route Start Last Admin Trade Name Freq PRN Reason Stop Dose Admin Acetaminophen 1,000 mg 05/22/23 08:49 05/24/23 12:36 Acetaminophen 500 Mg Tablet PO 1,000 mg Q6H PRN Administration Mild Pain (1-3) or Fever Albuterol 1 puff 05/21/23 23:56 05/22/23 21:14 Albuterol Sulfate (*Sp) Aerosol 1 Puff INHALATION 1 puff Q4HRT PRN Administration shortness of breath or wheezin Enoxaparin Sodium 40 mg 05/22/23 09:00 05/25/23 12:21 Enoxaparin 40 Mg/0.4 Ml Syringe SUB-Q Not Given DAILY SHANE Piperacillin/Tazobactam/Dextrose 3.375 gm in 50 mls @ 100 mls/hr 05/22/23 00:00 05/25/23 11:01 Zosyn 3.375 Gm/Ns 50 Ml IVPB 100 mls/hr Q6H SHANE Administration Ibuprofen 800 mg in 200 mls @ 400 mls/hr 05/22/23 08:49
--- NOTE | 2023-05-25 14:23 | PCWOUND ---
Received notification of upcoming surgery on 05/26/23, wound vac will remain in place. Wound care to await next orders from there.
--- NOTE | 2023-05-25 18:42 | PM.IMPN ---
Progress Note: A&P Assessment and Plan (1) Sepsis: Qualifiers: Sepsis type: sepsis due to unspecified organism Sepsis acute organ dysfunction status: unspecified Qualified Code(s): A41.9 - Sepsis, unspecified organism Code(s): A41.9 - Sepsis, unspecified organism Status: Acute (2) Abdominal wall abscess: Code(s): L02.211 - Cutaneous abscess of abdominal wall Status: Acute (3) Cellulitis: Code(s): L03.90 - Cellulitis, unspecified Status: Acute (4) Abscess of male pelvis: Code(s): K65.1 - Peritoneal abscess Status: Acute (5) Dyslipidemia: Code(s): E78.5 - Hyperlipidemia, unspecified Status: Chronic (6) Depression: Qualifiers: Depression Type: unspecified Qualified Code(s): F32.9 - Major depressive disorder, single episode, unspecified Code(s): F32.9 - Major depressive disorder, single episode, unspecified Status: Acute (7) Anxiety: Code(s): F41.9 - Anxiety disorder, unspecified Status: Acute (8) Vitamin D deficiency: Code(s): E55.9 - Vitamin D deficiency, unspecified Status: Acute (9) Nicotine dependence with current use: Code(s): F17.200 - Nicotine dependence, unspecified, uncomplicated Status: Acute (10) Gout: Code(s): M10.9 - Gout, unspecified Status: Acute (11) Postoperative hypotension: Code(s): I95.81 - Postprocedural hypotension Status: Acute Plan Patient downgraded from ICU to the floor Continue with aggressive IV antibiotics in the form of IV Zosyn, and Vancomycin Patient status post complex incision and drainage in of abdominal abscess with placement of wound VAC on 05/22/2023 ... POD # 3 Patient tolerated surgery well, continue with the postop surgical follow-up by General surgery Patient pressure under better control after aggressive fluids and vasopressor management in ICU Leukocytosis is slowly downtrending from 28.7 on admission to 20.1 today Checked vitamin B12 and folic acid levels for increased MCV which are adequate Strict input and output monitoring Monitor vital signs and blood pressure very closely Patient started on full liquid diet with dietary supplements Repeat CT scan of the abdomen ordered by surgery Wound VAC change today by surgery Follow-up closely with General surgery for further management IV potassium phosphate for supplementation ? Patient seen and examined at bedside during my morning rounds ? Collaborated with patient's nurse at the bedside in detail and addressed all concerns ? Labs, electrolytes, radiology, investigations and test results reviewed ? Consult/Nursing/Ancilliary notes on the chart reviewed and appreciated ? Spoke with patient/family at the bedside and answered all the questions that they had Repeat labs in a.m. Electrolyte replacement as per protocol. Patient will be monitored very closely on the ICU floor. Further recommendations as per the hospital course. Close management by cement loader and General surgery. Subjective Date/time seen: 05/25/23 18:42 Interval history: Patient doing better today. Was on his way down to get CT scan of the abdomen during my morning ground. Surgery plans to change wound VAC today. Review of Systems Review of Systems: 14 systems were reviewed with pertinent positives and negatives per HPI. Except as documented in the HPI/progress notes, all other systems were reviewed and are negative. All systems reviewed & are unremarkable except as noted in HPI and below Exam Narrative: PHYSICAL EXAMINATION: Vital signs: Please see the chart General physical exam: Patient lying in bed in ICU, pleasant and cooperative with exam, immediately postop, feels weak and tired Head/eyes: Atraumatic, EOMI, PERRLA ENT: Moist mucous membranes, nasal passages clear Neck: Supple, full range of motion, trachea midline CVS: S1 + S2, regular rate and rhythm, no murmurs Respirator
[2023-05-25] MEDS: POTASSIUM PHOS,M-BASIC-D-BASIC 20 MMOL in SODIUM CHLORIDE 0.9% IV 250 ML 64.17 MMOL IVPB (20:24)
[2023-05-26] VITALS (40 sets, daily range): BP systolic 45–118; BP diastolic 20–90; PULSE 80–156; RESP 16–35; TEMP 36.4–37.2; O2SAT 95–100
[2023-05-26] MEDS: CENTRAL LINE FLUSH 10 ML IV PUSH ×4 (02:57→20:38)
[2023-05-26 05:21] LABS: Hematocrit 28.2 % (42.0-52.0); Hemoglobin 9.2 g/dL (14.0-18.0); Mean Corpuscular HGB Conc 32.6 g/dl (32-36); Mean Corpuscular Hemoglobin 32.9 pg (26-34); Mean Corpuscular Volume 100.7 fl (80-100); Mean Platelet Volume 9.7 fl (7.4-10.4); Platelet Count Result 263 k/mm3 (150-375); Red Cell Distribution Width 14.5 % (11.5-14.5); White Blood Count 21.2 K/mm3 (4.5-10.0)
[2023-05-26 05:32] LABS: Alanine Aminotransferase 18 U/L (6-50); Albumin Level 2.1 g/dL (3.5-5.1); Alkaline Phosphatase 119 U/L (38-126); Anion Gap 10 mmol/L (8-16); Aspartate Amino Transferase 31 U/L (17-59); Bilirubin,Total 1.2 mg/dL (0.2-1.3); Blood Urea Nitrogen 25 mg/dL (9-20); Calcium 8.5 mg/dL (8.4-10.2); Carbon Dioxide 15 mmol/L (22-30); Chloride 112 mmol/L (98-107); Estimated CRCL calculation 23 ml/min; Estimated Glomerular Filt Rate 23; Glucose 84 mg/dL (65-110); Magnesium 2.2 mg/dL (1.6-2.3); Phosphorus 4.2 mg/dL (2.5-4.5); Potassium 4.4 mmol/L (3.4-5.0); Sodium 137 mmol/L (137-145)
[2023-05-26] MEDS: PIPERACILLN/TAZ 3.375GM/NS50ML 3.375 GM/50 ML BAG IVPB ×2 (06:13→11:10)
[2023-05-26] MEDS: metroNIDAZOLE 500 MG/ISO 100ML 500 MG/100 ML BAG 100 MG IVPB ×2 (06:15→11:10)
[2023-05-26 07:02] LABS: Band Neutrophils Percent 29 % (0-6); Eosinophils Absolute Manual 0.21 K/mm3 (0.02-0.5); Eosinophils Percent Manual 1 % (0-4); Lymphocytes Absolute Manual 1.27 K/mm3 (1.1-4.5); Metamyelocytes Percent 1 %; Monocytes Absolute Manual 0.84 K/mm3 (0.1-0.90); Monocytes Percent Manual 4 % (3-9); Neutrophils Absolute Manual 18.65 K/mm3 (1.3-6.7); Neutrophils Percent Manual 59 % (46-73); Platelet Estimate Adequate (Adequate); Schistocytes None Seen (NORMAL); Total Cells Counted 100
[2023-05-26] MEDS: SODIUM CHLORIDE 0.9% IV 1,000 ML 100 ML IV CONT ×2 (08:51→17:01)
--- NOTE | 2023-05-26 09:16 | PCOTNOTE ---
Addendum entered by Nereida Lanier OT 05/26/23 09:27: Following PT speaking with Dr. Gleason who agreed to hold on seeing pt at this time, OT is to also be held and discontinue orders at this time. Please re-order therapy when pt. is medical appropriate. Original Note: The patient evaluation was not able to be completed on 05/26 due to patient still having femoral line placed. Will plan to follow up again to see about when patient is able to receive therapy evaluation.
--- NOTE | 2023-05-26 09:21 | PCPTNOTE ---
Pt continues to have a femoral line contraindicating therapy at this time. Spoke with Dr. Gleason who agreed to hold on seeing pt at this time. Please re-order therapy when pt is medical appropriate.
[2023-05-26] MEDS: oxyCODONE HCL (*CRX) 5 MG TAB IR PO (11:09)
--- NOTE | 2023-05-26 11:27 | PC.NURSE ---
Blockage alarm from wound vac sounding. Dr. Crook made aware. Advised to turn off wound vac. Pt scheduled for washout, exploratory lap, and diversion at 1300.
--- NOTE | 2023-05-26 11:36 | WPDHPUPDATE1 ---
History and Physical Update Update Date/Time: 05/26/23 11:36 History and Physical has been reviewed, including an updated exam of the patient. There are NO changes in the patient's condition. Risks, benefits, and alternatives have been discussed and questions answered. Patient agrees to proceed with procedure.
[2023-05-26 11:41] LABS: Creatine Kinase < 20 U/L (55-170)
--- NOTE | 2023-05-26 12:59 | PM.CNNEP ---
Assessment and Plan Assessment and plan (1) Acute kidney injury: Code(s): N17.9 - Acute kidney failure, unspecified Status: Acute Assessment and Plan: the patient has acute kidney injury. This could be related to his abdominal process. Infection can do this. Third spacing could do this as well , leading to pre renal azotemia. He had 2 doses of contrast on the 24th and on the th which could do this as well. The patient is getting some IV fluids and antibiotics and supportive care for his abdominal process. He is on vancomycin plus Zosyn. This combination can sometimes cause kidney issues but not usually in this pattern. Typically it causes a very slow progressive rise in creatinine rather than a jump like he had these last 2 days. Just the same, I think it would be pierre to switch him from Zosyn to ceftazidime (2) Abdominal wall abscess: Code(s): L02.211 - Cutaneous abscess of abdominal wall Status: Acute Assessment and Plan: getting Surgery/supportive care from surgery. (3) Essential (primary) hypertension: Code(s): I10 - Essential (primary) hypertension Status: Chronic Assessment and Plan: blood pressure is under good control (4) Dyslipidemia: Code(s): E78.5 - Hyperlipidemia, unspecified Status: Chronic (5) Pre-diabetes: Code(s): R73.03 - Prediabetes Status: Acute Assessment and Plan: sugars doing pretty well (6) Sepsis: Qualifiers: Sepsis type: sepsis due to unspecified organism Sepsis acute organ dysfunction status: unspecified Qualified Code(s): A41.9 - Sepsis, unspecified organism Code(s): A41.9 - Sepsis, unspecified organism Status: Acute Assessment and Plan: blood cultures are pending. Urine culture was negative. Wound specimen culture showed E coli and Bacteroides fragilis. He is getting vancomycin plus Flagyl and will change Zosyn to ceftazidime. History of Present Illness Reason for Consult Consult date: 05/26/23 Chief Complaint Chief complaint: Abdominal Abscess History of Present Illness Narrative: Bijan is a very pleasant 72-year-old gentleman who has multiple underlying problems including hyperlipidemia, hypertension, gout, positive Cologuard test, pre diabetes, vitamin-D deficiency, and anxiety. The patient came into the emergency room with 2-3 days of diarrhea. He also abdominal discomfort. he was examined in the ER. He had a soft blood pressure. He had had a prior hernia repair and was found to have cellulitis In that region. CT abdomen showed pelvic abscess communicating with an abdominal wall abscess. He was admitted. Surgery saw the patient and he had an I and D with though wound VAC placed. He eventually improved and was moved to the floor. Wound VAC was continued. Blood pressure was better after IV fluids. His kidney function had been normal early in the hospital stay. Yesterday and today his creatinine jumped from 0.9-1.9-2.7 . Renal consultation was requested. He did receive a CT of the abdomen on 05/23 and also 05/25. He has been continuously getting IV fluids. His blood pressures were mildly soft yesterday but at baseline is blood pressure generally runs between 110 and 130. He has had no recent fevers. Review of Systems Constitutional: Constitutional: Reports no additional constitutional complaints Eyes: Eyes: Reports no additional eye complaints ENT: Reports system reviewed and no additional complaints, except as documented Cardiovascular: Cardiovascular: Reports no additional cardiovascular complaints Respiratory: Respiratory: Reports no additional respiratory complaints Gastrointestinal: Gastrointestinal: Reports no additional gastrointestinal complaints Genitourinary: Genitourinary: Reports no additional male genitourinary complaints Musculoskeletal: Musculoskeletal: Reports no additional musculosk
[2023-05-26] MEDS: LACTATED RINGERS 1,000 ML 30 ML IV CONT (13:00)
--- NOTE | 2023-05-26 13:00 | WPDANESEPPF ---
Anes - Initial Pre Proc Eval Procedure: Operation Date: 05/22/23 07:30 Proposed Procedures p Excision Abdominal Wall Mass - Chris Shelby MD Operation Date: 05/26/23 15:00 Proposed Procedures p Exploratory Laparotomy, Sigmoid Colon Resection, Creation of Colostomy - Yaz Crook MD Date/Time: 05/26/23 13:00 Surgeon: Bam Gleason MD Pre Op Diagnosis: Abdominal Abscess Patient Data Age: 72 Gender: M Height: 1.75 m Weight: 94.7 kg Last Vital Signs Temp 36.4 C L 05/26/23 12:00 Pulse 101 H 05/26/23 12:00 Resp 22 H 05/26/23 12:00 BP 107/90 05/26/23 12:00 Pulse Ox 97 05/26/23 12:00 O2 Del Method Room Air 05/26/23 04:00 O2 Flow Rate 2 05/23/23 16:00 FiO2 21 05/25/23 04:00 Allergies Allergy/AdvReac Type Severity Reaction Status Date / Time No Known Allergies Allergy Verified 05/21/23 16:33 Home Medications Medication Instructions Recorded Confirmed Type multivitamin 1 tablet PO DAILY 12/25/19 05/21/23 History albuterol sulfate 90 mcg/actuation 1 puff inhalation Q4H PRN 02/25/23 05/21/23 Rx aerosol inhaler shortness of breath or wheezing #6.7 grams lisinopril 10 mg tablet 10 mg PO DAILY #90 tabs 02/25/23 05/21/23 Rx Laboratory Tests 05/26/23 05/26/23 05:14 11:18 WBC 21.2 H K/mm3 (4.5-10.0) RBC 2.80 L M/mm3 (4.6-6.20) Hgb 9.2 L g/dL (14.0-18.0) Hct 28.2 L % (42.0-52.0) MCV 100.7 H fl (80-100) MCH 32.9 pg (26-34) MCHC 32.6 g/dl (32-36) RDW 14.5 % (11.5-14.5) Plt Count 263 k/mm3 (150-375) MPV 9.7 fl (7.4-10.4) Immature Gran % (Auto) Not Reportable Neut % (Auto) Not Reportable Lymph % (Auto) Not Reportable [place] % (Auto) Not Reportable Eos % (Auto) Not Reportable Baso % (Auto) Not Reportable Lymph # (Auto) Not Reportable [place] # (Auto) Not Reportable Eos # (Auto) Not Reportable Baso # (Auto) Not Reportable Abs Immat Gran (auto) Not Reportable Absolute Neuts (auto) Not Reportable Absolute Nucleated RBC Not Reportable Total Counted 100 Neutrophils % (Manual) 59 % (46-73) Band Neutrophils % 29 H % (0-6) Lymphocytes % (Manual) 6.0 L % (18-44) Monocytes % (Manual) 4 % (3-9) Eosinophils % (Manual) 1 % (0-4) Metamyelocytes % 1 % Nucleated RBC % Not Reportable Abs Neuts (Manual) 18.65 H K/mm3 (1.3-6.7) Abs Lymphs (Manual) 1.27 K/mm3 (1.1-4.5) Abs Monocytes (Manual) 0.84 K/mm3 (0.1-0.90) Absolute Eos (Manual) 0.21 K/mm3 (0.02-0.5) Platelet Estimate Adequate (Adequate) Schistocytes None seen (NORMAL) Sodium 137 mmol/L (137-145) Potassium 4.4 mmol/L (3.4-5.0) Chloride 112 H mmol/L (98-107) Carbon Dioxide 15 L mmol/L (22-30) Anion Gap 10 mmol/L (8-16) BUN 25 H mg/dL (9-20) Creatinine 2.70 H mg/dL (0.7-1.3) Estim Creat Clear Calc 23 ml/min Estimated GFR 23 L (59 - ) Glucose 84 mg/dL (65-110) Calcium 8.5 mg/dL (8.4-10.2) Phosphorus 4.2 mg/dL (2.5-4.5) Magnesium 2.2 mg/dL (1.6-2.3) Total Bilirubin 1.2 mg/dL (0.2-1.3) AST 31 U/L (17-59) ALT 18 U/L (6-50) Alkaline Phosphatase 119 U/L (38-126) Total Creatine Kinase < 20 L U/L (55-170) Total Protein 5.0 L g/dL (6.3-8.2) Albumin 2.1 L g/dL (3.5-5.1) U Random Total Protein Pending Ur Random Sodium Pending Ur Random Urea Pending Urine Creatinine Pending Protein/Creat Ratio 2 Pending Patient hx anesthesia problems: none Family hx anesthesia problems: none Results Review: All pre-operative results and documents have been reviewed as part of the pre-operative evaluation. PMF
--- NOTE | 2023-05-26 14:45 | PM.IMPN ---
Progress Note: A&P Assessment and Plan (1) Sepsis: Qualifiers: Sepsis type: sepsis due to unspecified organism Sepsis acute organ dysfunction status: unspecified Qualified Code(s): A41.9 - Sepsis, unspecified organism Code(s): A41.9 - Sepsis, unspecified organism Status: Acute (2) Abdominal wall abscess: Code(s): L02.211 - Cutaneous abscess of abdominal wall Status: Acute (3) Cellulitis: Code(s): L03.90 - Cellulitis, unspecified Status: Acute (4) Abscess of male pelvis: Code(s): K65.1 - Peritoneal abscess Status: Acute (5) Dyslipidemia: Code(s): E78.5 - Hyperlipidemia, unspecified Status: Chronic (6) Depression: Qualifiers: Depression Type: unspecified Qualified Code(s): F32.9 - Major depressive disorder, single episode, unspecified Code(s): F32.9 - Major depressive disorder, single episode, unspecified Status: Acute (7) Anxiety: Code(s): F41.9 - Anxiety disorder, unspecified Status: Acute (8) Vitamin D deficiency: Code(s): E55.9 - Vitamin D deficiency, unspecified Status: Acute (9) Nicotine dependence with current use: Code(s): F17.200 - Nicotine dependence, unspecified, uncomplicated Status: Acute (10) Gout: Code(s): M10.9 - Gout, unspecified Status: Acute (11) Postoperative hypotension: Code(s): I95.81 - Postprocedural hypotension Status: Acute Plan Patient downgraded from ICU to the floor Continue with aggressive IV antibiotics in the form of IV Zosyn, and Vancomycin Patient status post complex incision and drainage in of abdominal abscess with placement of wound VAC on 05/22/2023 ... POD # 4 Patient tolerated surgery well, continue with the postop surgical follow-up by General surgery Patient pressure under better control after aggressive fluids and vasopressor management in ICU Leukocytosis is slowly up trending at 26.6 today Checked vitamin B12 and folic acid levels for increased MCV which are adequate Strict input and output monitoring Monitor vital signs and blood pressure very closely Repeat CT scan of the abdomen and pelvis reviewed breast surgery, who plan to take patient back to the OR today Patient kept NPO since midnight Wound VAC management as per surgery Follow-up closely with General surgery for further management Patient may need transfer to ICU post-op ? Patient seen and examined at bedside during my morning rounds ? Collaborated with patient's nurse at the bedside in detail and addressed all concerns ? Labs, electrolytes, radiology, investigations and test results reviewed ? Consult/Nursing/Ancilliary notes on the chart reviewed and appreciated ? Spoke with patient/family at the bedside and answered all the questions that they had Repeat labs in a.m. Electrolyte replacement as per protocol. Patient will be monitored very closely on the ICU floor. Further recommendations as per the hospital course. Close management by ladies' hat trimmer and General surgery. Time Spent With Patient Time with patient: 25 - 35 minutes Subjective Date/time seen: 05/26/23 14;45 Interval history: Patient lying in bed during my morning rounds. Awaiting surgical call to OR. Feels anxious, tired and fatigued. Review of Systems Review of Systems: 14 systems were reviewed with pertinent positives and negatives per HPI. Except as documented in the HPI/progress notes, all other systems were reviewed and are negative. All systems reviewed & are unremarkable except as noted in HPI and below Exam Narrative: PHYSICAL EXAMINATION: Vital signs: Please see the chart General physical exam: Patient lying in bed in ICU, pleasant and cooperative with exam, immediately postop, feels weak and tired Head/eyes: Atraumatic, EOMI, PERRLA ENT: Moist mucous membranes, nasal passages clear Neck: Supple, full range of motion, trachea midline CVS: S1 + S2, regular r
[2023-05-26 15:28] LABS: Creatinine Urine 82.2 mg/dL; Total Protein Urine Random 30 mg/dL; Ur Ttl Prot Creatinine Ratio 0.36 mg/mg (0-0.20); Urea Random Urine 104 MG/DL
[2023-05-26 15:29] LABS: Sodium Urine Random 35 meq/L
--- NOTE | 2023-05-26 15:55 | W.PM.PROC2 ---
Procedure Note - Detailed Date of Procedure 05/26/23 Pre-op Diagnosis Sepsis, colocutaneous fistula, abdominal abscess with fascial dehiscence Post-op Diagnosis Same Procedure Performed exploratory laparotomy, extensive lysis of adhesions, sigmoid colon resection with takedown of previous sigmoid anastomosis, small-bowel resection, drainage and washout of intra-abdominal abscess, creation of descending colon colostomy, placement of VAC dressing Surgeon Yaz Crook MD Anesthesia General Indications 72-year-old male with history of previous segmental sigmoid colon resection re-presented to the hospital with intra-abdominal abscess, sepsis and subsequent workup 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 Findings Anastomotic leak, incidental small bowel perforation during lysis of adhesions Description of Procedure The patient was taken the operating room placed in the supine position. After adequate induction of general anesthesia, the patient was prepped and draped in the normal sterile fashion. A time-out was then done to verify the patient's identity, as well as the procedure being performed. Began by taking down the previously placed VAC dressing. There was noted to be a large amount feculent contamination. This was suctioned away. There was noted to be a small defect fascial dehiscence in the inferior portion of the, but largely the fascia was intact. I began by enlarging the incision both superior and inferiorly. I then gained access into the intra-abdominal cavity. There was noted to be some adhesions the previous incision line. I was able to take down these adhesions as it was noted to be largely omentum. I then was able to open up the fascia entirely. Once opened, there was noted to be a copious amount feculent contamination in the left lower quadrant. This was washed out and suctioned away. I then noted a large inflammatory mass in the left lower quadrant. There was noted to be small bowel and omentum adhesed to this area. A tedious lysis of adhesions was undertaken at this point. This lysis of adhesions took approximately 1 hour. During the adhesiolysis, there was noted to be a small bowel injury, perforation. Given this, the small bowel was resected and a [id number] functional end-to-end anastomosis was done with a 75 MONTRELL stapler followed by TL 60 stapler. I then was able to isolate the area of the previous anastomosis. There was noted to be defect at the previous staple line. Given the amount of inflammation, the decision was made to resect this area. Was able to get around these distal sigmoid colon and transected this area with a contour stapler. The distal stump was marked with Prolene suture. I then used the LigaSure to take down the mesenteric attachments of the sigmoid colon around the previous anastomosis. I then was able to get to the proximal sigmoid colon. This area was noted to be largely unremarkable and I transected with a MONTRELL 75 stapler. The resected sigmoid colon with the previous anastomosis a perforation was sent to pathology for further review. I then freed up the left colon to allow creation of a ostomy. I then created a ostomy site in the right mid abdomen. This was done at the lateral rectus making a cruciate incision in the posterior fascia. Was able to bring the colon through this site with a Ciara. I then copiously washed out the abdomen. There was some generalized oozing noted, this was present throughout the entirety of the case. I then left a 19 [place] Ángel drain in the pelvis coming through the right lower quadrant. I then closed the fascia with 0 looped PDS suture x2. I then placed a wound VAC of greater than 50 sq cm on the midline incision bed. The ostomy was then matured with 3-0 Vicryl sutures in a [place] fashion. Ostomy appliance was then placed over the VAC dressing. The patient continues to be in critically ill condition and required pressors throughout the case. He will be transferred
[2023-05-26 16:27] LABS: Hematocrit 26.6 % (42.0-52.0); Hemoglobin 8.2 g/dL (14.0-18.0); Mean Corpuscular HGB Conc 30.8 g/dl (32-36); Mean Corpuscular Hemoglobin 33.1 pg (26-34); Mean Corpuscular Volume 107.3 fl (80-100); Mean Platelet Volume 10.1 fl (7.4-10.4); Platelet Count Result 268 k/mm3 (150-375); Red Blood Count 2.48 M/mm3 (4.6-6.20); White Blood Count 26.6 K/mm3 (4.5-10.0)
--- NOTE | 2023-05-26 16:34 | ECG_ITS ---
Measurements Intervals [place] Rate: 131 P: 53 [place]: 169 QRS: 53 QRSD: 87 T: 61 QT: 292 QTc: 432 Interpretive Statements SINUS TACHYCARDIA WITH OCCASIONAL SUPRAVENTRICULAR PREMATURE COMPLEXES LOW QRS VOLTAGE [QRS DEFLECTION < 0.5/1.0 mV IN LIMB/CHEST LEADS] MARKED ST ELEVATION, CONSIDER ANTERIOR INJURY [MARKED ST ELEVATION W/O NORMALLY INFLECTED T WAVE IN V2-V5] ACUTE SD COMPARED TO ECG 05/21/2023 12:11:32 ACUTE SD NOW PRESENT Electronically Signed On 05-26-2023 21:11:43 PBX SUPERVISOR by Faby Kirkland M.D.
[2023-05-26 16:37] LABS: Alanine Aminotransferase 19 U/L (6-50); Alkaline Phosphatase 121 U/L (38-126); Anion Gap 14 mmol/L (8-16); Aspartate Amino Transferase 32 U/L (17-59); Bilirubin,Total 0.8 mg/dL (0.2-1.3); Blood Urea Nitrogen 26 mg/dL (9-20); Calcium 8.2 mg/dL (8.4-10.2); Carbon Dioxide 12 mmol/L (22-30); Chloride 112 mmol/L (98-107); Estimated CRCL calculation 24 ml/min; Estimated Glomerular Filt Rate 21; Glucose 101 mg/dL (65-110); Potassium 4.9 mmol/L (3.4-5.0); Sodium 138 mmol/L (137-145)
[2023-05-26 16:41] LABS: Band Neutrophils Percent 17 % (0-6); Eosinophils Absolute Manual 0.26 K/mm3 (0.02-0.5); Eosinophils Percent Manual 1 % (0-4); Lymphocytes Absolute Manual 4.25 K/mm3 (1.1-4.5); Metamyelocytes Percent 1 %; Monocytes Absolute Manual 2.12 K/mm3 (0.1-0.90); Monocytes Percent Manual 8 % (3-9); Myelocytes Percent 3 %; Neutrophils Absolute Manual 18.88 K/mm3 (1.3-6.7); Neutrophils Percent Manual 54 % (46-73); Total Cells Counted 100
[2023-05-26 16:42] LABS: Platelet Estimate Adequate (Adequate)
[2023-05-26 16:44] LABS: Hypochromasia 1+ (NORMAL); Macrocytosis 2+ (NORMAL); Schistocytes None Seen (NORMAL)
[2023-05-26] MEDS: FENTANYL 2,500MCG/NS250ML(*CRX 2,500 MCG/250 ML BAG 7.5 MCG IV CONT (17:00)
[2023-05-26] MEDS: MIDAZOLAM 100MG/NS 100ML(*CRX) 100 MG/100 ML BAG IV CONT (17:00)
[2023-05-26] MEDS: SODIUM CHLORIDE 0.9% IV 500 ML IV CONT (17:01)
[2023-05-26 17:03] LABS: Alveolar/Arterial O2 Gradient 240.4 mmHg; Base Excess ABG -18.7 mEq/l (+/-2.0); Fractional Inspired Oxygen 80 %; HCO3 ABG 9.9 mEq/l (22.0-26.0); Oxygen Content ABG 13.2 %vol (16.0-22.0); Oxygen Saturation ABG 99.5 % (95.0-100.0); PCO2 ABG 33.9 mmHg (35.0-45.0); PO2 ABG 294.4 mmHg (80.0-100.0); PO2 FiO2 Ratio Arterial Blood 3.68 %
[2023-05-26 17:04] LABS: Arterial Blood Gas PEEP 8 cmH2O; Arterial Blood Gas Vent Mode CMV; Arterial Blood Gas Ventilator rate 22 /MIN; Device VENTILATOR; Modified Allen's Test Pass; Site Drawn LEFT RADIAL; pH ABG 7.083 (7.350-7.450)
[2023-05-26 17:05] LABS: Arterial Blood Gas Tidal Volume 450 ml
[2023-05-26 17:12] LABS: Ammonia < 9 umol/L (9-30)
[2023-05-26 17:13] LABS: Phosphorus 6.2 mg/dL (2.5-4.5)
[2023-05-26 17:14] LABS: INR 3.8; Prothrombin Time 40.7 Seconds (11.1-14.7)
[2023-05-26 17:15] LABS: Partial Thromboplastin Time 47.1 SECONDS (22.3-36.8)
[2023-05-26 17:18] LABS: Lactic Acid Reflex 7.7 mmol/L (0.7-2.0)
--- NOTE | 2023-05-26 17:28 | PC.NURSE ---
recieved at 1624 via bed from or at this time, EKG done and shown elevated t waves in some leads, notified Armaan Jackson to no avail, Dr raymond came down and looked at EKG and wanted to take him to color laboratory technician, b/p ulow, bolus given and sanya and levo started as well as sedation orders, color laboratory technician present, labs drawn and 2 units of blood started as per order, asa and blilanta given per ordered by Dr. Raymond, pt left in bed with color laboratory technician team at 1730.
[2023-05-26 17:30] LABS: Troponin I 0.105 ng/mL (0.000-0.034)
[2023-05-26] MEDS: SODIUM CHLORIDE 0.9% IV 250 ML 30 ML IV CONT (17:37)
[2023-05-26] MEDS: ASPIRIN 325 MG TABLET (17:37)
[2023-05-26] MEDS: TICAGRELOR 90 MG TABLET 180 MG PO (17:37)
[2023-05-26] MEDS: ROCURONIUM BROMIDE 50 MG/5 ML VIAL (17:38)
--- NOTE | 2023-05-26 17:38 | PM.CNCAR ---
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 Today, he underwent exploratory laparotomy, extensive lysis of adhesions, sigmoid colon resection with takedown of previous sigmoid anastomosis, small-bowel resection, drainage, and washout of intra-abdominal abscess, creation of descending colon colostomy, and placement of VAC dressing. In the OR, patient was unable to meet extubation criteria and required pressor support. Patient was transferred to ICU after the OR. Upon arrival to the ICU, site monitor showed concerns for ST changes. EKG obtained which shows sinus tachycardia, and anterolateral ST elevations concerning for STEMI, therefore, I was called. Upon my evaluation, patient requiring Phenylephrine and Levophed for pressor support. 2 units of blood ordered. pH of 7.083, HCO3 of 9.9. His SCr has increased to 3 now. Lactic acid at 7.7. I had a discussion with Dr. Cortes, Dr. Crook, and the patient's via telephone. Given STEMI, will proceed with emergent cardiac catheterization. High risk of bleeding. Prognosis is very guarded. Loaded with ASA and Brilinta in the ICU prior to transfer to director of labor relations. Further recommendations and plan pending results of cardiac cath. History of Present Illness History of Present Illness Consult date/time: 05/26/23 17:38 Requesting physician: Rashid Cortes MD Consult reason: Other (STEMI) Reason For Visit: Abdominal Abscess Narrative: We are consulted for STEMI. 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 Today, he underwent exploratory laparotomy, extensive lysis of adhesions, sigmoid colon resection with takedown of previous sigmoid anastomosis, small-bowel resection, drainage, and washout of intra-abdominal abscess, creation of descending colon colostomy, and placement of VAC dressing. In the OR, patient was unable to meet extubation criteria and required pressor support. Patient was transferred to ICU after the OR. Upon arrival to the ICU, site monitor showed concerns for ST changes. EKG obtained which shows sinus tachycardia, and anterolateral ST elevations concerning for STEMI, therefore, I was called. Upon my evaluation, patient requiring Phenylephrine and Levophed for pressor support. 2 units of blood ordered. pH of 7.083, HCO3 of 9.9. His SCr has increased to 3 now. Lactic acid at 7.7. I had a discussion with Dr. Cortes, Dr. Crook, and the patient's via telephone. Given STEMI, will proceed with emergent cardiac catheterization. High risk of bleeding. Prognosis is very guarded. Review of Systems Review of Systems: ROS unobtainable: Yes unobtainable due to endotracheal tube and unobtainable due to medical condition PMFSH Past Medical History Medical History Anxiety attack Dyslipidemia Elevated lipids Essential (primary) hypertension Gout Hx of pleural empyema 02/2015 Incidental lung nodule, less than or equal to 3mm Pneumonia (~02/09/15) Positive colorectal cancer screening using Cologuard test Pre-diabetes Scrotum swelling Vitamin D deficiency Surgical History Surgical History History of thoracotomy right - 02/2015 Hx of inguinal hernia repair robotic assisted exploratory laparoscopy, reduction of strangulated left inguinal hernia with sigmoid colon, conversion to open laparotomy, partial sigmoid colon resection with primary anastomosis, abdominal washout on 04/12/23 [place] teeth extracted Family History Family History Other Heart disease
[2023-05-26] MEDS: NOREPINEPHRINE 8 MG/D5W 250 ML 8 MG/250 ML BAG 18.75 MG IV CONT (17:39)
[2023-05-26] MEDS: ROCURONIUM BROMIDE 50 MG/5 ML VIAL IV PUSH (17:39)
[2023-05-26] MEDS: SODIUM BICARBONATE 8.4% 50 MEQ/50 ML SYRINGE 100 MEQ IV PUSH ×3 (17:39→20:40)
[2023-05-26] MEDS: SODIUM BICARBONATE 8.4% 50 MEQ/50 ML SYRINGE IV PUSH (17:40)
--- NOTE | 2023-05-26 17:40 | WPDMODSED ---
Moderate Sedation Note-Pt Data Patient Data Diagnosis: STEMI Present Complaint: STEMI Procedure to be performed/Plan: Primary PCI Allergies Allergy/AdvReac Type Severity Reaction Status Date / Time No Known Allergies Allergy Verified 05/26/23 13:14 Home Medications Medication Instructions Recorded Confirmed Type multivitamin 1 tablet PO DAILY 12/25/19 05/21/23 History albuterol sulfate 90 mcg/actuation 1 puff inhalation Q4H PRN 02/25/23 05/21/23 Rx aerosol inhaler shortness of breath or wheezing #6.7 grams lisinopril 10 mg tablet 10 mg PO DAILY #90 tabs 02/25/23 05/21/23 Rx Current Medications: Active Medications Acetaminophen (Acetaminophen 500 Mg Tablet) 1,000 mg PO Q6H PRN PRN Reason: Mild Pain (1-3) or Fever Last Admin: 05/24/23 12:36 Dose: 1,000 mg Albuterol (Albuterol Sulfate (*Sp) Aerosol 1 Puff) 1 puff INHALATION Q4HRT PRN PRN Reason: shortness of breath or wheezin Last Admin: 05/22/23 21:14 Dose: 1 puff Aspirin (Aspirin 81 Mg Enteric Tablet) 81 mg PO QAM [facility]ANE Atorvastatin Calcium (Atorvastatin 40 Mg Tablet) 80 mg PO DAILY [facility] Enoxaparin Sodium (Enoxaparin 40 Mg/0.4 Ml Syringe) 40 mg SUB-Q DAILY [facility] Last Admin: 05/26/23 08:46 Dose: Not Given Vancomycin HCl (Vancomycin 1,750 Mg/Ns 500 Ml) 1,750 mg in 500 mls @ 250 mls/hr IVPB Q12H [facility] Last Admin: 05/24/23 19:39 Dose: Not Given Metronidazole (Flagyl 500 Mg/Iso Soln 100 Ml) 500 mg in 100 mls @ 100 mls/hr IVPB Q6HR [facility] Last Admin: 05/26/23 18:57 Dose: Not Given Micafungin Sodium 100 mg/ (Sodium Chloride) 100 mls @ 100 mls/hr IVPB Q24H [facility] Last Admin: 05/26/23 17:40 Dose: Not Given Phenylephrine HCl 50 mg/ (Dextrose) 250 ml in 255 mls @ 55.08 mls/hr IV CONT .Q4H38M [facility]; Protocol Last Admin: 05/26/23 17:02 Dose: 180 mcg/min, 55.08 mls/hr Fentanyl Citrate (Fentanyl 2,500 Mcg/Ns 250 Ml) 2,500 mcg in 250 mls @ 10 mls/hr IV CONT .Q25H [facility]; Protocol Last Admin: 05/26/23 17:00 Dose: 75 mcg/hr, 7.5 mls/hr Midazolam HCl (Versed 100 Mg/Ns 100 Ml) 100 mg in 100 mls @ 5 mls/hr IV CONT .Q20H [facility]; Protocol Last Admin: 05/26/23 17:00 Dose: 3 mg/hr, 3 mls/hr Meropenem () 1 gm in 100 mls @ 200 mls/hr IVPB Q12H [facility] Last Admin: 05/26/23 18:57 Dose: Not Given Sodium Chloride (Normal Saline Iv) 250 mls @ 30 mls/hr IV CONT .Q8H20M STA Stop: 05/27/23 01:02 Last Admin: 05/26/23 17:37 Dose: 30 mls/hr Norepinephrine Bitartrate (Levophed 8 Mg/D5w 250 Ml) 8 mg in 250 mls @ 18.75 mls/hr IV CONT .[id number] [facility]ANE; Protocol Last Admin: 05/26/23 17:39 Dose: 10 mcg/min, 18.75 mls/hr Eptifibatide (Integrilin) 75 mg in 100 mls @ 15.152 mls/hr IV CONT .Q6H36M [facility] Sodium Bicarbonate 150 meq/ (Dextrose) 1,100 mls @ 100 mls/hr IV CONT .Q11H [facility] Morphine Sulfate (Morphine Sulfate (*Crx) 2 Mg/Ml Inj) 2 mg IV PUSH Q3H PRN PRN Reason: Pain Rated 7-10 Last Admin: 05/23/23 00:02 Dose: 2 mg Multi-Ingred Cream/Lotion/Oil/Oint (Mineral Oil/White Petrolatum Ointment) 1 applic EACH EYE Q12HR [facility] Oxycodone HCl (Oxycodone Hcl (*Crx) 5 Mg Tab Ir) 5 mg PO Q4H PRN PRN Reason: Pain Rated 4-6 Last Admin: 05/26/23 11:09 Dose: 5 mg Perflutren Lipid Microsphere (Perflutren Lipid Microspheres 1.5 Ml Vial Diluted To 10 Ml Total Volume) 0 ml IV PUSH ONCE PRN; Protocol PRN Reason: adequate visualization Stop: 05/29/23 18:52 Sodium Chloride (Central Line Flush) 10 ml IV PUSH Q8HR [facility]ANE Last Admin: 05/26/23 17:36 Dose: 10 ml Sodium Chloride (Central Line Flush) 20 ml IV PUSH PRN PRN PRN Reason: after blood draws Ticagrelor (Ticagrelor 90 Mg Tablet) 90 mg PO Q12HR [facility]ANE Sedation/Anesthesia: No previous sedation/anesthesia problems (including family history). PMFSH Past Medical History Medical History Anxiety attack Dyslipidemia Elevated lipids Essential (primary) hypertension Gout Hx of pleural empyema 02/2015 Incidental lung nodule, less than or equal to 3mm Pneumonia (~01/29
[2023-05-26 18:01] LABS: Hemoglobin A1C 5.4 % (<5.7)
[2023-05-26 18:35] LABS: Procalcitonin 5.5 ng/mL
--- NOTE | 2023-05-26 18:56 | WPDCARDPROC ---
Cardiac Cath Procedure Note Date of procedure:: 05/26/23 Performing physician:: CATHETERIZATION LABORATORY REPORT Procedure Date: 05/26/2023 Heat Transfer Technician: Faby Kirkland M.D., [facility]? Referring Physician: Dr. Cortes Anesthesia: Versed and Fentanyl were ordered and given in my presence at 17:53, procedure ended at 18:46. Supervision of nurse monitored moderate sedation with Versed and Fentanyl was provided for 53 minutes. Patient already on IV sedation drips prior to arrival to rn cardiac cath, no additional IV sedation was administered. Pre-op Diagnosis: Anterolateral STEMI Post-op Diagnosis: 1. STEMI with 99% subtotal occlusion of the mid LAD s/p successful PCI with ALFONSO x 1 (3.0mm x 33mm Xience ALFONSO). 2. Left ventricular end-diastolic pressure of 19mmHg Procedure(s): 1. Ultrasound-guided access of the right common femoral artery 2. Coronary angiography 3. Left heart cath 4. IVUS of the LAD 5. PCI of the mid LAD with ALFONSO x 1 6. 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 Today, he underwent exploratory laparotomy, extensive lysis of adhesions, sigmoid colon resection with takedown of previous sigmoid anastomosis, small-bowel resection, drainage, and washout of intra-abdominal abscess, creation of descending colon colostomy, and placement of VAC dressing. In the OR, patient was unable to meet extubation criteria and required pressor support. Patient was transferred to ICU after the OR. Upon arrival to the ICU, quality assurance monitor final showed concerns for ST changes. EKG obtained which shows sinus tachycardia, and anterolateral ST elevations concerning for STEMI, therefore, I was called. Upon my evaluation, patient requiring Phenylephrine and Levophed for pressor support. 2 units of blood ordered. pH of 7.083, HCO3 of 9.9. His SCr has increased to 3 now. Lactic acid at 7.7. I had a discussion with Dr. Cortes, Dr. Crook, and the patient's via telephone. Given STEMI, will proceed with emergent cardiac catheterization. High risk of bleeding. Prognosis is very guarded. Loaded with ASA and Brilinta in the ICU prior to transfer to rn cardiac cath. Time out called, patient name, date of , medical record number, allergies, procedure performed, identify Heat Transfer Technician, patient and staff member concurred with accurate data, procedure carried on. Findings: LEFT HEART CATHETERIZATION FINDINGS: 1. Left main: The left main coronary artery is widely patent without any significant obstructive disease. 2. Left anterior descending: The mid portion of the LAD has a 99% subtotal occlusion with LISA II flow to the distal LAD. 3. Ramus: Mild disease noted in the proximal portion. 3. Left circumflex: The left circumflex artery has mild-moderate disease in the mid portion. No significant obstructive angiographic disease. OM branch has luminal irregularities. 4. Right coronary artery: The RCA has mild luminal irregularities without any significant obstructive angiographic disease. The RCA is the dominant vessel. 5. Left ventricle: A. End-diastolic pressure 22mmHg. B. LV gram deferred. C. No significant gradient across aortic valve on catheter pullback. Description of Procedure and PCI: Patient transferred to rn cardiac cath room. Prepped and draped in usual sterile fashion. 2% lidocaine in right groin area. Micropuncture needle used to access right common femoral artery with Seldinger technique under fluoroscopic and ultrasound guidance. J wire advanced, micropuncture cannula placed. Right iliofemoral angiogram performed, access confirmed and micropuncture cannula exchanged for 6-FR sheath. 5F FL 4 diagnostic catheter engaged Left Main Coronary Artery. 5F FR 4 diagnostic catheter engaged Right Coronary Artery. Multiple orthogonal jg
[2023-05-26] MEDS: LACTATED RINGERS 1,000 ML 999 ML IV CONT (19:30)
[2023-05-26 19:58] LABS: Alveolar/Arterial O2 Gradient 208.1 mmHg; Base Excess ABG -17.2 mEq/l (+/-2.0); Fractional Inspired Oxygen 50 %; HCO3 ABG 10.9 mEq/l (22.0-26.0); Oxygen Content ABG 14.2 %vol (16.0-22.0); Oxygen Saturation ABG 96.4 % (95.0-100.0); Oxyhemoglobin 95.7 % THb (90.0-100.0); PCO2 ABG 34.4 mmHg (35.0-45.0); PO2 ABG 109.7 mmHg (80.0-100.0); PO2 FiO2 Ratio Arterial Blood 2.19 %; Total Hemoglobin 10.4 g/dL (12.0-18.0)
[2023-05-26 20:00] LABS: Device VENTILATOR; Site Drawn RIGHT BRACHIAL
[2023-05-26 20:00] LABS: Reflex Lactic Acid Yes or No Add Lactic
[2023-05-26 20:01] LABS: Arterial Blood Gas PEEP 8 cmH2O; Arterial Blood Gas Tidal Volume 450 ml; Arterial Blood Gas Vent Mode CMV; Arterial Blood Gas Ventilator rate 26 /MIN
[2023-05-26] MEDS: EPTIFIBATIDE 0.75 MG/ML 75 MG/100 ML VIAL 15.15 MG IV CONT (20:33)
[2023-05-26] MEDS: VASOPRESSIN INJ 100 UNITS in DEXTROSE 5% 95 ML IV CONT (20:34)
[2023-05-26] MEDS: SODIUM BICARBONATE 8.4% 150 MEQ in WATER, STERILE FOR INJECTION 950 ML 100 MEQ IV CONT (20:35)
[2023-05-26] MEDS: HYDROCORTISONE SODIUM SUCCINATE 100 MG/2 ML VIAL IV PUSH (20:36)
[2023-05-26] MEDS: MINERAL OIL/WHITE PETROLATUM OINTMENT 1 APPLIC EACH EYE (20:38)
[2023-05-26] MEDS: hetaSTARCH 6%/NACL 500 ML 999 ML IV CONT (20:42)
[2023-05-26 21:02] LABS: Hemoglobin 8.2 g/dL (14.0-18.0); Mean Corpuscular HGB Conc 30.4 g/dl (32-36); Mean Corpuscular Hemoglobin 30.4 pg (26-34); Mean Platelet Volume 10.4 fl (7.4-10.4); Platelet Count Result 196 k/mm3 (150-375); Red Cell Distribution Width 17.4 % (11.5-14.5); White Blood Count 32.9 K/mm3 (4.5-10.0)
[2023-05-26 21:13] LABS: Anion Gap 22 mmol/L (8-16); Blood Urea Nitrogen 25 mg/dL (9-20); Calcium 7.2 mg/dL (8.4-10.2); Carbon Dioxide 13 mmol/L (22-30); Chloride 108 mmol/L (98-107); Estimated CRCL calculation 24 ml/min; Estimated Glomerular Filt Rate 21; Glucose 131 mg/dL (65-110); Magnesium 2.1 mg/dL (1.6-2.3); Potassium 4.5 mmol/L (3.4-5.0); Sodium 143 mmol/L (137-145)
[2023-05-26 21:32] LABS: Vancomycin Random 19.2 ug/mL (10-20)
[2023-05-26 21:43] LABS: Lactic Acid 14.3 mmol/L (0.7-2.0)
[2023-05-26] MEDS: ALBUMIN HUMAN 25% 25 GM/100 ML 100 ML IVPB (21:55)
[2023-05-26] MEDS: EPINEPHrine INJ 1 MG in DEXTROSE 5% IN WATER 250 ML 15.06 MG IV CONT (22:05)
[2023-05-26] MEDS: CALCIUM CHLOR 1,000MG/100ML NS 1,000 MG/100 ML BAG 100 MG IVPB ×2 (22:30→23:00)
[2023-05-26] MEDS: NOREPINEPHRINE BITARTRATE 16 MG in DEXTROSE 5% IN WATER 234 ML 46.88 ML IV CONT (23:32)
[2023-05-26 23:47] LABS: INR > 20.0; Prothrombin Time > 120.0 Seconds (11.1-14.7)
[2023-05-26 23:48] LABS: Partial Thromboplastin Time > 200.0 SECONDS (22.3-36.8)
[2023-05-26] MEDS: PHARMACIST COMMUNICATION ORDER 1 EACH XX (23:53)
[2023-05-27] VITALS: BP 40/29; PULSE 116; PULSE 119; PULSE 135; RESP 26; TEMP 33.6; O2SAT 100
--- NOTE | 2023-05-27 00:41 | PC.NURSE ---
Received patient after arrival from surgery. Pt profoundly hypotensive and receiving multiple vasopressors at the maximum dose. Blood pressure remains in the 40's systolic despite this. Family at bedside and made decision to withdraw care.
--- NOTE | 2023-05-27 01:01 | PC.NURSE ---
0044 all vasopressors turned off 0047 pt extubated to room air 0051 Pt
--- NOTE | 2023-05-27 01:04 | PCRCNOTE ---
00:47 extubated pt to room air with RN at bedside
--- NOTE | 2023-05-27 07:41 | P.CDI_ITS ---
Disregard ... This seems to be an old diagnosis. I'll remove from A&P. CDI Query Clarification Request BMI 26.8 Nutritional Diagnostic Statement Severe protein calorie malnutrition as related to inadequate protein-energy intake with increased protein-energy needs in setting of acute disease (colon resection/wound vac) as evidenced by <75% of EER for >7 days and significant weight loss of 17% (36 lbs) in 6 months. Please refer to the comprehensive nutrition assessment for further information. Please clarify severity of protein calorie malnutrition if known: * Mild * Moderate * Severe * Other/Unspecified.
--- NOTE | 2023-05-27 18:30 | PM.DDS ---
Discharge Summary Date and Time Date of : 05/27/23 Time of : 00:51 Probable Cause of Probable Cause of : Pelvic abscesses --> Entero-cutaneuous Fistula - - > Sepsis Summary Hospital Course: H&P: HPI History of Present Illness Date/Time: 05/21/23? 18:14 Chief Complaint: Poor Appetite, Abdominal Pain Narrative: 72 y/o M presents here with poor appetite, weight loss, abdominal pain with past medical history inguinal hernia repair on 04/12, dyslipidemia, HTN, pleural empyema in 2014, vitamin-D deficiency, and prediabetes. Patient presents here with poor appetite, reduced p.o. intake, and lower abdominal pain.? Patient states that symptoms have been present since his surgery on 04/12 when he presented with an incarcerated left inguinal hernia with sigmoid colon obstruction.? Initially attempted to repair laparoscopically, however once sigmoid colon was observed it was noted to have developed a perforation and was ischemic.? Laparoscopic surgery was converted to a open laparotomy with resection of the sigmoid colon and repair of a left inguinal hernia.? Patient then spent 1 week postop in hospital.? Patient states that he has had poor appetite and poor p.o. intake since surgery.? Denied increased pain with eating, but nausea without vomiting was exacerbated with eating.? Patient reports in the last 2-3 days that the abdominal pain had worsened.? Now exacerbated by flexion at the waist and specific twisting motions.? Patient did not observe redness to his abdomen and had not realized he had developed it.? Arrived to the ED tachycardic with a heart rate in the 140s, afebrile, and hypotensive.? ED workup revealed a WBC of 28.7, stable hemoglobin, hyponatremia at 1:27 a.m., stable creatinine but elevated from prior (0.6 -> 0.9), lactic acidosis at 4.9, elevated LFTs, elevated alk-phos, elevated CRP, and UA equivocal for UTI.? CXR normal.? CT of abdomen pelvis showed pelvic abscesses with abscess of the anterior abdominal wall which appears to communicate with gas and fluid in the left inguinal canal likely also abscess. HOSPITAL COURSE ... 05/22/2023: Continue with critical care monitoring in ICU Continue with aggressive IV antibiotics in the form of IV Zosyn, Flagyl and vancomycin Patient tolerated surgery well earlier today Continue with the postop surgical follow-up by General surgery Postop pain management as per General surgery and twill cutter Patient given aggressive IV hydration to maintain blood pressure Patient started on IV norepinephrine for blood pressure control Leukocytosis is slowly downtrending from 28.7 yesterday to 23.9 today Strict input and output monitoring Monitor vital signs and blood pressure very closely 05/23/2023: Assessment and Plan (1) Sepsis: ?Qualifiers: ?Sepsis type:?sepsis due to unspecified organism??Sepsis acute organ dysfunction status:?unspecified? Qualified Code(s):?A41.9 - Sepsis, unspecified organism ?Code(s): A41.9 - Sepsis, unspecified organism ?Status:?Acute ?Assessment and Plan: Sepsis, likely related to abdominal wall abscess and pelvic abscess -on admission patient's lactic acid was 4.9, adequately fluid-resuscitated, repeat lactic acid this morning was 1.7 -blood pressures have been stable -will give additional IV fluid bolus -continue albumin for volume expansion -05/21: Blood cultures have been obtained and pending -05/21: Urine cultures no growth -05/22: Abdominal abscess cultures have been obtained and pending 05/21:Patient was started on Zosyn, vancomycin and Flagyl, will discontinue Flagyl as she already has Zosyn for anaerobic coverage (2) Abdominal wall abscess: ?Code(s): L02.211 - Cutaneous abscess of abdominal wall ?Status:?Acute ?Assessment and Plan: Abdominal abscess and fascial dehiscence :? Status post complex incision and drainage of abdominal abscess with with placement of wound VAC on 05/22/[address] Shelby. -surgery
== END 2023-05-27 00:51 | disposition expired | DRG 856 ==
LOC: ANHED 14:34 → ANH3MED 15:42 → ANHICU 05-22 09:48 → ANHIMU 05-23 12:21 → ANHICU 05-26 16:26
PROVIDERS: Anesthesiology; Internal Medicine; Internal Medicine Nephrology; Student in an Organized Health Care Education/Training Program; Surgery; Admitting Provider Hospitalist; Emergency Provider Emergency Medicine; PCP Nurse Practitioner Family; Visit Provider Family Medicine
PROC: 0W9G0ZZ Drainage of Peritoneal Cavity, Open Approach (ICD-10-PCS; principal; 2023-05-22 07:30)
PROC: 0DB80ZZ Excision of Small Intestine, Open Approach (ICD-10-PCS; CPT 49000; principal; 2023-05-26 15:00)
PROC: 4A023N7 Measurement of Cardiac Sampling and Pressure, Left Heart, Percutaneous Approach (ICD-10-PCS; CPT 93452; principal; 2023-05-26 17:10)
PROC: 027034Z Dilation of Coronary Artery, One Artery with Drug-eluting Intraluminal Device, Percutaneous Approach (ICD-10-PCS; 2023-05-26 17:10)
PROC: 027034Z Dilation of Coronary Artery, One Artery with Drug-eluting Intraluminal Device, Percutaneous Approach (ICD-10-PCS; 2023-05-26 17:10)
PROC: 027034Z Dilation of Coronary Artery, One Artery with Drug-eluting Intraluminal Device, Percutaneous Approach (ICD-10-PCS; 2023-05-26 17:10)
DX: T81.43XA Infection following a procedure, organ and space surgical site, initial encounter (principal); I21.09 ST elevation (STEMI) myocardial infarction involving other coronary artery of anterior wall; T81.12XA Postprocedural septic shock, initial encounter; K65.1 Peritoneal abscess; T81.32XA Disruption of internal operation (surgical) wound, not elsewhere classified, initial encounter; L03.311 Cellulitis of abdominal wall; L02.211 Cutaneous abscess of abdominal wall; K63.2 Fistula of intestine; N17.9 Acute kidney failure, unspecified; K91.71 Accidental puncture and laceration of a digestive system organ or structure during a digestive system procedure; K91.89 Other postprocedural complications and disorders of digestive system; T81.44XA Sepsis following a procedure, initial encounter; K66.0 Peritoneal adhesions (postprocedural) (postinfection); B96.20 Unspecified Escherichia coli [E. coli] as the cause of diseases classified elsewhere; B96.6 Bacteroides fragilis [B. fragilis] as the cause of diseases classified elsewhere; F17.210 Nicotine dependence, cigarettes, uncomplicated; E78.5 Hyperlipidemia, unspecified; R73.03 Prediabetes; I10 Essential (primary) hypertension; F32.9 Major depressive disorder, single episode, unspecified; F41.9 Anxiety disorder, unspecified; E55.9 Vitamin D deficiency, unspecified; M10.9 Gout, unspecified; R29.810 Facial weakness; R91.1 Solitary pulmonary nodule; I95.81 Postprocedural hypotension
CPT/HCPCS: 36415; 36430; 36600; 70450; 71046; 72192; 74177; 74270; 80048; 80053; 80202; 81001; 82140; 82550; 82570; 82607; 82746; 82805; 83036; 83605; 83735; 84100; 84145; 84156; 84300; 84484; 84540; 85025; 85027; 85610; 85730; 86140; 86850; 86900; 86901; 86923; 87040; 87070; 87075; 87076; 87077; 87086; 87186; 87205; 87637; 88307; 92978; 93005; 93458; 94002; 94640; 96365; 99285; A9270; C1725; C1751; C1753; C1760; C1769; C1874; C1887; C1894; C9606; G0269; J0171; J0330; J0583; J0690; J1327; J1644; J1650; J1720; J1741; J1836; J2250; J2270; J2305; J2371; J2405; J2543; J2704; J3010; J3370; J3475; J3480; J7030; J7040; J7050; J7060; J7120; P9016; P9047; Q9967